=== PATIENT | female | born 1990 | race Caucasian/White ===

== ENCOUNTER 2024-03-01 09:43 | Emergency (ER) | payer BC, SELFPAY ==
[2024-03-01 09:52] VITALS: BP 137/85; PULSE 77; RESP 13; TEMP 36.9; O2SAT 100
[2024-03-01 09:55] VITALS: O2SAT 100
[2024-03-01 11:16] VITALS: BP 139/82; PULSE 78; O2SAT 100
--- NOTE | 2024-03-01 11:18 | ED.DENTAL ---
HPI - Dental/Oral General Chief complaint: Dental/Oral Stated complaint: dental pain Time Seen by Provider: 03/01/24 09:59 Source: patient Mode of arrival: ambulatory Limitations: no limitations History of Present Illness HPI Narrative: This is a 33-year-old female that presents to the emergency department for dentalgia. Ongoing intermittently over the last several months. Reports worsening over the last couple of days. Reports yesterday she started to notice some swelling around the area. Denies fevers or drainage. MD Complaint: tooth pain Location: Tooth # (4) Related Data Allergies Allergy/AdvReac Type Severity Reaction Status Date / Time amoxicillin Allergy Hives Verified 03/01/24 09:45 Review of Systems Review of Systems: CONSTITUTIONAL: Denies fever ENT: Reports dentalgia All systems reviewed & are unremarkable except as noted in HPI and below PMFSH Past Medical History Medical History (Updated 03/01/24 @ 11:38 by Becka Ayala PA-C) No active medical problems Social History Social History (Updated 03/01/24 @ 11:19 by Becka Ayala PA-C) Substance use: never Exam Narrative: GENERAL: Well-appearing, well-nourished, and in no acute distress. HEAD: Normocephalic, atraumatic. EYES: EOMI. ENT: Nares clear, no rhinorrhea or epistaxis. Mucous membranes moist. Oropharynx without tonsillar hypertrophy exudate or other lesions. Edema and fluctuance surrounding tooth 4. No trismus NECK: Supple. No adenopathy or masses. CHEST: No respiratory distress. HEART: Regular rate EXTREMITIES: Normal range of motion. No edema. SKIN: Warm, dry, no rash. NEURO: No focal deficits. Alert and oriented x3. PSYCH: Normal mood and affect Course Course Emergency Course: abscess successfully drained. patient agrees with plan of care Vital Signs Vital signs: Vital Signs Temperature 98.5 F 03/01/24 09:52 Pulse Rate 77 03/01/24 09:52 Respiratory Rate 13 03/01/24 09:52 Blood Pressure 137/85 03/01/24 09:52 Pulse Oximetry 100 03/01/24 09:52 Oxygen Delivery Room Air 03/01/24 09:52 Temperature 98.5 F 03/01/24 09:52 Pulse Rate 87 03/01/24 11:33 Respiratory Rate 18 03/01/24 11:33 Blood Pressure 121/80 03/01/24 11:33 Pulse Oximetry 100 03/01/24 11:33 Oxygen Delivery Room Air 03/01/24 09:52 Procedures Abscess I/D oral: Date of Incision: 03/01/24 Time of Incision: 11:41 Side (if applicable): right Local Anesthetic: none (cetacaine) Technique: incised with #11 blade Packing used?: none I&D Results: Pus and Blood MDM - Dental/Oral MDM Narrative Medical decision making narrative: Patient presents to the emergency department for dental pain and swelling. Patient is afebrile and nontoxic appearing. She did have an abscess that was successfully drained. Wound culture sent. Patient will be started on oral antibiotics. She is to follow up with her dentist. She was given warnings to return to the ER Differential Diagnosis Differential diagnosis: Likely dental caries, toothache and dental abscess Critical Care Time Critical Care Time Critical Care Time: No Discharge Plan Discharge Clinical Impression: Dental abscess Patient Disposition: Home, Self-Care Condition: Stable Instructions: Antibiotic Form, Dental Abscess (ED) Additional Instructions: Return if symptoms worsen or concerns: any increase in redness, swelling, pain or fever over 101 Take antibiotics as directed. Tylenol or Ibuprofen as needed for pain Follow up with your dentist Prescriptions: New clindamycin HCl 300 mg capsule 300 mg PO Q8H 10 Days Qty: 30 0RF Follow-up/Referrals: UNKNOWN,DOCTOR [Primary Care Provider] -
[2024-03-01 11:33] VITALS: BP 121/80; PULSE 87; RESP 18; O2SAT 100
[2024-03-01] MEDS: BENZOCAINE (*SP) 60 ML SPRAY CAN (HURRICAINE) 1 SPRAY MUCOUS MEM (11:43)
== END 2024-03-01 11:49 | disposition home or self-care (01) ==
PROVIDERS: Emergency Provider Physician Assistant
DX: K04.7 Periapical abscess without sinus (principal)
CPT/HCPCS: 41800; 87070; 87205; 99283; A9270

== ENCOUNTER 2025-05-22 07:45 | Emergency (ER) | payer OTHER, BC, SELFPAY ==
--- OUTSIDE RECORDS SUMMARY | 2025-02-26 06:54 | XMS_ITS | Continuity of Care Document ---
Author Organization [facility] Address [address] [place] [address] Phone Care Team Providers Care Secy Name Role Phone Brooke VO, Kerline Unavailable Unavailable Advance Directives Directive Yes / No Effective Date File Name No Information Encounters Encounter Description Practice Location Reason(s) For Visit Diagnoses Date Provider Providers Copied on Encounter [facility], [address], [place], [place], [id number], tel:[phone] [facility] No Information Brooke Churchill. [address] [place] [address], [id number], . tel:[phone] Family History Family Member Type Diagnosis Age At Onset No Information Payers Payer name Insurance type Covered libertarian ID Authoriza tion(s) No Information Social History Type Description Quantity Date Captured Comments Sex Female Smoking Status No Information Chief Complaint And Reason For Visit No Information Reason For Referral Reason For Referral No Information History Of Present Illness Encounter Date Complaint History Of Prese nt Illness No Information Functional Status Date Functional Assessmen t No Information Instructions Date Instruction Additional Infor mation No Information Assessments Type Assessment Date No Information Patient Care Teams Name Effective Dates (start - stop) Status Members No Information
--- OUTSIDE RECORDS SUMMARY | 2025-02-26 06:54 | XMS_ITS | Continuity of Care Document ---
Author Organization [facility] Address [address] [place] [address] Phone Care Team Providers Care Network Development Coordinator Name Role Phone Brooke VO, Kerline Unavailable Unavailable Advance Directives Directive Yes / No Effective Date File Name No Information Encounters Encounter Description Practice Location Reason(s) For Visit Diagnoses Date Provider Providers Copied on Encounter [facility], [address], [place], [place], [id number], tel:[phone] [facility] No Information Brooke Churchill. [address] [place] [address], [id number], . tel:[phone] Family History Family Member Type Diagnosis Age At Onset No Information Payers Payer name Insurance type Covered republican ID Authoriza tion(s) No Information Social History [...]
--- NOTE | ~2025-05-22 | CT_ITS ---
EXAMINATION: CT abdomen pelvis w con DATE: 05/22/2025 08:43 INDICATION: Right upper quadrant abdominal pain. TECHNIQUE: Computed tomography (CT) of the abdomen and pelvis was performed with 100 mL Omnipaque-350 intravenous contrast. Automated exposure control and iterative reconstruction technique were employed. The dose-length product was 706.38 mGy-cm. COMPARISON: None FINDINGS: Lung bases are clear. Heart size is normal. No pericardial or pleural effusion. Small sliding-type hiatal hernia with change of prior sleeve gastrectomy with suture line along the greater curvature of the stomach. Prominent diffuse hepatic steatosis with more focal fat at the ligamentum teres. Gallbladder, spleen, pancreas, bilateral adrenal glands and right kidney are normal. 1 cm left renal cyst. Bowels including the appendix are normal. Bladder is unremarkable. IUD in expected position within the anteverted uterus. 2 cm right ovarian cyst/follicle. Left ovary is unremarkable. No free intraperitoneal gas or fluid. No pathologically enlarged abdominal or pelvic lymphadenopathy. Mild lower thoracic spondylosis. IMPRESSION: 1. No acute intra-abdominal/pelvic process. 2. Diffuse hepatic steatosis. 3. Small sliding-type hiatal hernia. Reviewed, dictated and finalized at location A.
[2025-05-22 07:50] VITALS: BP 132/96; PULSE 107; RESP 16; TEMP 36.8; O2SAT 100
[2025-05-22 08:01] VITALS: BP 131/91; PULSE 84; RESP 17; O2SAT 98
--- OUTSIDE RECORDS SUMMARY | 2025-05-22 08:02 | XMS_ITS | Encounter Summary ---
Author Organization [employer] Address 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
--- OUTSIDE RECORDS SUMMARY | 2025-05-22 08:02 | XMS_ITS | Encounter Summary ---
Author Organization [facility] Address 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
--- OUTSIDE RECORDS SUMMARY | 2025-05-22 08:02 | XMS_ITS | Encounter Summary ---
Author Organization [facility] Address [address] [place] [address] Care Team Providers Care Director Supply Name Role Phone Dennis Clifton DO Primary Care Provider [phone] Encounter Details Date Type Department Care Team (Late st Contact Info) Description 10/31/2008 Outpatient Historical [facility] [address] [facility] 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
--- OUTSIDE RECORDS SUMMARY | 2025-05-22 08:02 | XMS_ITS | Encounter Summary ---
Author Organization [facility] Address 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
--- OUTSIDE RECORDS SUMMARY | 2025-05-22 08:02 | XMS_ITS | Encounter Summary ---
Author Organization [employer] Address 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 No Chlamydia trachomatis detected. [facility] Endocervical 10/31/2008 1:06 PM MASH FILTER PRESS OPERATOR 10/31/2008 2:46 PM MASH FILTER PRESS OPERATOR Narrative INTERFACE SYSTEM - 11/01/2008 3:00 PM MASH FILTER PRESS OPERATOR All identification methods for Chlamydia trachomatis and Neisseria gonorrhoeae can yield false positive results. In circumstances where diagnosis could lead to adverse psychosocial impacts, additional testing is recommended. A negative test result does not exclude infection. Consultation with the lab is recommended whenever the test result is negative and the clinical indications strongly suggest Chlamydial or Gonorrhoeal infection. Culture is the only recommended procedure for diagnosing Chlamydial or Gonorrhoeal infection in cases of suspected child abuse. Jose De Jesus Arriola MD [employer] ORDERABLES COM Final Result INTERFACE SYSTEM Refer to clinic/hospital department [facility] CLIA# [id number] [address] [place] [address] documented in this encounter Visit Diagnoses Diagnosis Screening examination for venereal disease documented in this encounter Care Teams Sewing Inspector Relationship Specialty Start Date End Date Dennis Clifton DO [facility] [place] [address] PCP - General Family Practice 07/28/21 03/26/24 documented as of this encounter
--- OUTSIDE RECORDS SUMMARY | 2025-05-22 08:02 | XMS_ITS | Encounter Summary ---
Author Organization [facility] Address [address] [place] [address] Care Team Providers Care Cook Station Name Role Phone Dennis Clifton DO Primary Care Provider [phone] Encounter Details Date Type Department Care Team (Late st Contact Info) Description 03/28/[address] 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
--- OUTSIDE RECORDS SUMMARY | 2025-05-22 08:02 | XMS_ITS | Encounter Summary ---
Author Organization [facility] Address [address] [place] [address] Care Team Providers Care Health Safety Coordinator Name Role Phone Dennis Clifton DO Primary Care Provider Encounter Details Date Type Department Care Team (Late st Contact Info) Description 03/05/[address] 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
--- OUTSIDE RECORDS SUMMARY | 2025-05-22 08:02 | XMS_ITS | Encounter Summary ---
Author Organization [employer] Address 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 JOURNEYMAN 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 Gender Identity Not on file Sexual Orientation Not on file documented as of this encounter Plan of Treatment Not on file documented as of this encounter Procedures Procedure Name Priority Date/Time Associated Diagnosis Comments US OB LTD 1 OR MORE FETUSES Pending Discharge 11/07/2008 10:46 AM JOURNEYMAN MACHINIST documented in this encounter Results * US OB LTD 1 OR MORE FETUSES (11/07/2008 10:46 AM JOURNEYMAN MACHINIST) Anatomical Region Laterality Modality Pelvis Other Narrative 11/07/2008 10:46 AM JOURNEYMAN MACHINIST FINAL - Order Information Only Procedure Note Jose Graham, RN - 09/30/2015 FINAL - Order Information Only us Stl Other US ORDERABLES Final Result documented in this encounter Visit Diagnoses Diagnosis Other specified complication, antepartum(646.83) Other specified complication, antepartum documented in this encounter Care Teams Reconciliation Coordinator Relationship Specialty Start Date End Date Dennis Clifton DO [facility] [place] [address] PCP - General Family Practice 07/28/21 03/26/24 documented as of this encounter
--- OUTSIDE RECORDS SUMMARY | 2025-05-22 08:02 | XMS_ITS | Encounter Summary ---
Author Organization [employer] [facility] Address [address] [place] [address] Care Team Providers Care Ground Wood Supervisor Name Role Phone Dennis Clifton DO Primary Care Provider [phone] Encounter Details Date Type Department Care Team (Late st Contact Info) Description 10/08/2008 Outpatient Historical HIS [facility] AMRIK Arriola, Jose De Jesus Art MD NO ADDRESS ON FILE State, Incidental Social History Tobacco Use Types Packs/Day Years Used Date Smoking Tobacco: Never Assessed Comments Unknown Sex and Gender Information Value Date Recorded Sex Assigned at Not on file Legal Sex Female 5:41 AM SEWER AND INSPECTOR Gender Identity Not on file Sexual Orientation Not on file documented as of this encounter Plan of Treatment Not on file documented as of this encounter Procedures Procedure Name Priority Date/Time Associated Diagnosis Comments HIV DETECTION W/REFLX CONFIRMATION Routine 10/08/2008 11:40 AM SEWER AND INSPECTOR HEPATITIS B SURFACE ANTIGEN Routine 10/08/2008 11:40 AM SEWER AND INSPECTOR RUBELLA IGG Routine 10/08/2008 11:40 AM SEWER AND INSPECTOR CBC WITH DIFFERENTIAL Routine 10/08/2008 11:40 AM SEWER AND INSPECTOR RPR Routine 10/08/2008 11:40 AM SEWER AND INSPECTOR OBSTETRIC PANEL Routine 10/08/2008 11:40 AM SEWER AND INSPECTOR URINE CULTURE Routine 10/08/2008 11:40 AM SEWER AND INSPECTOR TYPE AND SCREEN, Routine 10/08/2008 11:23 AM SEWER AND INSPECTOR DRUGS OF ABUSE PANEL 7 Routine 10/08/2008 11:23 AM SEWER AND INSPECTOR BLOOD BANK ANTIBODY SCREEN Routine 10/08/2008 11:23 AM SEWER AND INSPECTOR documented in this encounter Results * OBSTETRIC PANEL (10/08/2008 11:40 AM SEWER AND INSPECTOR) COMMENT See Additional Orderables [facility] Blood specimen (specimen) 10/08/2008 11:40 AM SEWER AND INSPECTOR 10/08/2008 11:53 AM SEWER AND INSPECTOR Jose De Jesus Arriola MD CHEMISTRY ORDERABLES Final Result Performing Organization Address [facility] de Phone Number INTERFACE SYSTEM Refer to clinic/hospital department [facility] CLIA# [id number] [address] [place] [address] * HIV ANTIBODY W/REFLX CONFIRMATION (10/08/2008 11:40 AM SEWER AND INSPECTOR) HIV-1 AND 2 ABS NON-REACT RAFITA NON-REACT RAFITA [facility] Comment: A NON-REACTIVE HIV 1/2 ANTIBODY RESULT DOES NOT EXCLUDE HIV INFECTION SINCE THE TIME FRAME FOR SEROCONVERSION IS VARIABLE. IF ACUTE HIV INFECTION IS SUSPECTED, ANTIBODY RETESTING AND NUCLEIC ACID AMPLIFICATION (HIV DNA/RNA) TESTING IS RECOMMENDED. Lab test performed by: [facility] [id number] [place] [address] BRYANT PAEZ MD Effective February 13, 2007, HIV 1/2 Antibody Screen with Reflexed Confirmation has replaced HIV-1 Antibody Screen. HIV-1 Antibody Screen is no longer offered due to lack of available kits from the stockholder. Blood specimen (specimen) 10/08/2008 11:40 AM SEWER AND INSPECTOR 10/08/2008 11:53 AM SEWER AND INSPECTOR Jose De Jesus Arriola MD CHEMISTRY ORDERABLES Final Result Performing Organization Address [facility] de Phone Number INTERFACE SYSTEM Refer to clinic/hospital department [facility] CLIA# [id number] [address] [place], [place] [address] * (ABNORMAL) CBC WITH DIFFERENTIAL (10/08/2008 11:40 AM SEWER AND INSPECTOR) HEMATOCRIT 38.0 35.5 - 44.0 % [facility] RDW-STDEV 42.3 37.1 - 48.7 fL [facility] RBC 4.49 3.90 - 4.90 M/uL [facility] MCHC 34.5 31.5 - 35.5 % [facility] MCV 84.6 82.0 - 99.0 fL [facility] PLATELETS 311 140 - 350 K/uL [facility] HEMOGLOBIN 13.1 11.8 - 14.8 g/dL [facility] RDW 13.8 11.5 - 14.5 % [facility] WBC 10.1(H) 4.0 - 9.8 K/uL [facility] MCH 29.2 27.2 - 32.6 pg [facility] MPV 9.8 9.3 - 12.4 fL [facility] BASOPHILS ABSOLUTE 0.02 0.00 - 0.20 K/uL [facility] MONOCYTES 5 3 - 13 % [facility] MONOCYTE ABSOLUTE 0.49 0.10 - 1.30 K/uL [facility] NEUTROPHILS 74(H) 45 - 70 % [facility] NEUTROPHIL ABSOLUTE 7.47(H) 1.90 - 7.00 K/uL [facility] EOSINOPHILS 1 0 - 7 % [facility] EOSINOPHIL ABSOLUTE 0.05 0.00 - 0.70 K/uL [facility] LYMPHOCYTES 21 16 - 45 % [facility] LYMPHOCYTE ABSOLUTE 2.08 0.70 - 4.50 K/uL [facility] BASOPHILS 0 0 - 2 % [facility] Blood specimen (specimen) 10/08/2008 11:40 AM SEWER AND INSPECTOR 10/08/2008 11:55 AM SEWER AND INSPECTOR Jose De Jesus Arriola MD HEMATOLOGY ORDERABLES Edit ed Performing Organization Address [facility] Phone Number INTERFACE SYSTEM Refer to clinic/hospital department [facility] CLIA# [id number] [address] [place] [address] * HEPATITIS B SURFACE ANTIGEN (10/08/2008 11:40 AM SEWER AND INSPECTOR) HEPATITIS B SURFACE AG NON-REACTI VE NON-REACT RAFITA [facility] Comment: Lab test performed by: [facility] [id number] [place] [address] BRYANT PAEZ MD Blood specimen (specimen) 10/08/2008 11:40 AM SEWER AND INSPECTOR 10/08/2008 11:53 AM SEWER AND INSPECTOR Jose De Jesus Arriola MD CHEMISTRY ORDERABLES Final Result Performing Organization Address [facility] Phone Number INTERFACE SYSTEM Refer to clinic/hospital department [facility] CLIA# [id number] [address] [place] [address] * RUBELLA IGG (10/08/2008 11:40 AM SEWER AND INSPECTOR) RUBELLA IGG 1.18 EIA Value [facility] Comment: EIA VALUE EXPLANATION OF TEST RESULTS --------- <0.91 NEGATIVE - NO RUBELLA IGG ANTIBODY DETECTED. 0.91 - 1.09 EQUIVOCAL > OR = 1.10 POSITIVE - RUBELLA IGG ANTIBODY DETECTED. THE PRESENCE OF RUBELLA IGG ANTIBODY SUGGESTS IMMUNIZATION OR PAST OR CURRENT INFECTION WITH RUBELLA VIRUS. Lab test performed by: [facility] [id number] [employer] [place] [id number] BRYANT PAEZ MD Blood specimen (specimen) 10/08/2008 11:40 AM SEWER AND INSPECTOR 10/08/2008 11:53 AM SEWER AND INSPECTOR Jose De Jesus Arriola MD CHEMISTRY ORDERABLES Final Result Performing Organization Address [facility] Phone Number INTERFACE SYSTEM Refer to clinic/hospital department [facility] CLIA# [id number] [address] [place] [address] * RPR (10/08/2008 11:40 AM SEWER AND INSPECTOR) RPR NON-REACTI VE NON-REACT RAFITA [facility] Comment: Lab test performed by: [facility] [id number] [place] [id number] BRYANT PAEZ MD Blood specimen (specimen) 10/08/2008 11:40 AM SEWER AND INSPECTOR 10/08/2008 11:53 AM SEWER AND INSPECTOR Jose De Jesus Arriola MD CHEMISTRY ORDERABLES Final Result Performing Organization Address [facility] Phone Number INTERFACE SYSTEM Refer to clinic/hospital department [facility] CLIA# [id number] [address] [place] [address] * URINE CULTURE (10/08/2008 11:40 AM SEWER AND INSPECTOR) PRELIMINARY REPORT Pending [facility] FINAL REPORT No growth 24 hours [facility] 10/08/2008 11:4 0 AM SEWER AND INSPECTOR 10/08/2008 12:55 PM SEWER AND INSPECTOR us Jose De Jesus Arriola MD MICROBIOLOGY - GENERAL ORD ERABLES Final Result Performing Organization Address [facility] de Phone Number INTERFACE SYSTEM Refer to clinic/hospital department [facility] CLIA# [id number] [address] [place] [address] * ANTIBODY SCREEN (10/08/2008 11:23 AM SEWER AND INSPECTOR) ANTIBODY SCREEN Negative [facility] 10/08/2008 11:2 3 AM SEWER AND INSPECTOR Jose De Jesus Arriola MD BLOOD BANK ORDERABLES Cami l Result Performing Organization Address [facility] de Phone Number INTERFACE SYSTEM Refer to clinic/hospital department [facility] CLIA# [id number] [address] [place] [address] * TYPE AND SCREEN, (10/08/2008 11:23 AM SEWER AND INSPECTOR) HISTORY CHECK No Historical ABO/Rh [facility] ABO/RH TYPE A Positive [facility] Blood specimen (specimen) 10/08/2008 11:23 AM SEWER AND INSPECTOR Jose De Jesus Arriola MD BLOOD BANK ORDERABLES Edit ed Performing Organization Address [facility] Phone Number INTERFACE SYSTEM Refer to clinic/hospital department [facility] CLIA# [id number] [address] [place] [address] * DRUGS OF ABUSE PANEL 7 (10/08/2008 11:23 AM SEWER AND INSPECTOR) COMMENT, TOXICOLOGY See Separate Comment [facility] Comment: Urine sample was not handled as a legal specimen and was received without a chain of custody. The result should be used only for medical purposes. False positive and erroneous results can occur due to cross-reacting substances and other factors. Depending on the clinical context, confirmation of all presumptive positive results by a more specific alternate method is recommended. A negative result indicates the analyte, if present, is below the screening threshold. Drug Ref. Range Screening Threshold Amphetamines Negative 1000 ng/mL Barbiturates Negative 200 ng/mL Benzodiazepines Negative 300 ng/mL Cannabinoids Negative 50 ng/mL Cocaine Metabolites Negative 300 ng/mL Opiates Negative 300 ng/mL Phencyclidine Negative 25 ng/mL The cut-off threshold, known cross-reactive compounds, drugs,and specificity information for each of the urine drugs of abuse are available on the [facility] Intranet at: [email or web address] Select: Lab Policies & Procedures Select: Drugs of Abuse-[facility] To inquire about any potential cross-reactivity of a specific drug not listed at this site, please contact the Chemistry Lab at . AMPHETAMINE QUAL, URINE Negative Negative [facility] BARBITURATE QUAL, URINE Negative Negative [facility] BENZODIAZEPINE QUAL, URINE Negative Negative [facility] CANNABINOIDS QUAL, URINE Negative Negative [facility] COCAINE QUAL URINE Negative Negative [facility] OPIATE QUAL, URINE Negative Negative [facility] PCP QUAL, URINE Negative Negative [facility] Urine specimen (specimen) 10/08/2008 11:23 AM SEWER AND INSPECTOR 10/08/2008 11:52 AM SEWER AND INSPECTOR us Jose De Jesus Arriola MD URINE ORDERABLES Edited INTERFACE SYSTEM Refer to clinic/hospital department [facility] CLIA# [id number] [address] [place] [address] documented in this encounter Visit Diagnoses Diagnosis state, incidental documented in this encounter Care Teams Ground Wood Supervisor Relationship Specialty Start Date End Date Dennis Clifton DO [address] [facility] [place] [address] PCP - General Family Practice 07/28/21 03/26/24 documented as of this encounter
--- OUTSIDE RECORDS SUMMARY | 2025-05-22 08:02 | XMS_ITS | Encounter Summary ---
Author Organization [employer] Address [address] [place] [address] Care Team Providers Care Behavioral Services Tech Name Role Phone Etienne Dennis Primary Care Provider [phone] Encounter Details Date Type Department Care Team (Late st Contact Info) Description 03/27/2009 Outpatient Historical [facility] Jose De Jesus Arriola MD NO ADDRESS ON FILE State, Incidental Social History Tobacco Use Types Packs/Day Years Used Date Smoking Tobacco: Never Assessed Comments Unknown Sex and Gender Information Value Date Recorded Sex Assigned at Not on file Legal Sex Female 5:41 AM WEIGH TANK OPERATOR Gender Identity Not on file Sexual Orientation Not on file documented as of this encounter Plan of Treatment Not on file documented as of this encounter Procedures Procedure Name Priority Date/Time Associated Diagnosis Comments (BROTH-ENRICHED) GROUP B STREP DETECTION Routine 03/27/2009 4:16 PM CDT documented in this encounter Results * STREPTOCOCCUS GROUP B CULTURE (03/27/2009 4:16 PM CDT) PRELIMINARY REPORT Pending [facility] FINAL REPORT No Streptococcus Group B isolated. [facility] 03/27/2009 4:16 PM CDT 03/27/2009 6:55 PM CDT us Jose De Jesus Arriola MD MICROBIOLOGY - GENERAL ORD ERABLES Final Result INTERFACE SYSTEM Refer to clinic/hospital department [facility] CLIA# [id number] [address] [place] [address] documented in this encounter Visit Diagnoses Diagnosis state, incidental documented in this encounter Care Teams Behavioral Services Tech Relationship Specialty Start Date End Date Dennis Clifton DO [facility] [place] [address] PCP - General Family Practice 07/28/21 03/26/24 documented as of this encounter
--- OUTSIDE RECORDS SUMMARY | 2025-05-22 08:02 | XMS_ITS | Encounter Summary ---
Author Organization [facility] Address [address] [place] [address] Care Team Providers Care Environmental Education Specialist Name Role Phone Dennis Clifton DO Primary Care Provider [phone] Encounter Details Date Type Department Care Team (Late st Contact Info) Description 03/11/2009 Outpatient [facility] [address] [facility] [place] [address] Binta Alves DO [address] [place] [address] Social History Tobacco Use Types Packs/Day Years Used Date Smoking Tobacco: Never Assessed Comments Unknown Sex and Gender Information Value Date Recorded Sex Assigned at Not on file Legal Sex Female 5:41 AM LEASES AND LAND SUPERVISOR Gender Identity Not on file Sexual Orientation Not on file documented as of this encounter Plan of Treatment Not on file documented as of this encounter Visit Diagnoses Not on filedocumented in this encounter Care Teams Environmental Education Specialist Relationship Specialty Start Date End Date Dennis Clifton DO [address] [place] [address] PCP - General Family Practice 07/28/21 03/26/24 documented as of this encounter
--- OUTSIDE RECORDS SUMMARY | 2025-05-22 08:02 | XMS_ITS | Encounter Summary ---
Author Organization [facility] Address [address] [place] [address] Care Team Providers Care Automotive Tire Worker Name Role Phone Dennis Clifton DO Primary Care Provider [phone] Encounter Details Date Type Department Care Team (Late st Contact Info) Description 04/11/2009 Outpatient Historical [facility] [address] [place] [address] Social History Tobacco Use Types Packs/Day Years Used Date Smoking Tobacco: Never Assessed Comments Unknown Sex and Gender Information Value Date Recorded Sex Assigned at Not on file Legal Sex Female 5:41 AM ELECTRONIC INTELLIGENCE OFFICER Gender Identity Not on file Sexual Orientation Not on file documented as of this encounter Plan of Treatment Not on file documented as of this encounter Visit Diagnoses Not on filedocumented in this encounter Care Teams Automotive Tire Worker Relationship Specialty Start Date End Date Dennis Clifton DO [address] [place] [phone] PCP - General Family Practice 07/28/21 03/26/24 documented as of this encounter
--- OUTSIDE RECORDS SUMMARY | 2025-05-22 08:02 | XMS_ITS | Encounter Summary ---
Author Organization [facility] Address [address] [place] [address] Care Team Providers Care Travel Agency Manager Name Role Phone Dennis Clifton DO Primary Care Provider [phone] Encounter Details Date Type Department Care Team (Late st Contact Info) Description 04/10/2009 Outpatient Historical [facility] [address] [place] [address] Jose De Jesus Arriola MD NO ADDRESS ON FILE Social History Tobacco Use Types Packs/Day Years Used Date Smoking Tobacco: Never Assessed Comments Unknown Sex and Gender Information Value Date Recorded Sex Assigned at Not on file Legal Sex Female 5:41 AM CHANNEL REBUILDER Gender Identity Not on file Sexual Orientation Not on file documented as of this encounter Plan of Treatment Not on file documented as of this encounter Visit Diagnoses Not on filedocumented in this encounter Care Teams Travel Agency Manager Relationship Specialty Start Date End Date Dennis Clifton DO [facility] [place] [address] PCP - General Family Practice 07/28/21 03/26/24 documented as of this encounter
--- OUTSIDE RECORDS SUMMARY | 2025-05-22 08:02 | XMS_ITS | Encounter Summary ---
Author Organization [employer] Address [address] [place] [address] Care Team Providers Care Caustic Cresylate Shift Superintendent Name Role Phone Dennis Clifton DO Primary Care Provider [phone] Encounter Details Date Type Department Care Team (Late st Contact Info) Description 01/23/2009 Outpatient Historical [facility] Jose De Jesus Arriola MD NO ADDRESS ON FILE Supervision of Other Normal Social History Tobacco Use Types Packs/Day Years Used Date Smoking Tobacco: Never Assessed Comments Unknown Sex and Gender Information Value Date Recorded Sex Assigned at Not on file Legal Sex Female 5:41 AM INSULATION CUTTER Gender Identity Not on file Sexual Orientation Not on file documented as of this encounter Plan of Treatment Not on file documented as of this encounter Visit Diagnoses Diagnosis Supervision of other normal documented in this encounter Care Teams Caustic Cresylate Shift Superintendent Relationship Specialty Start Date End Date Dennis Clifton DO [facility] [place] [address] PCP - General Family Practice 07/28/21 03/26/24 documented as of this encounter
--- OUTSIDE RECORDS SUMMARY | 2025-05-22 08:02 | XMS_ITS | Encounter Summary ---
Author Organization [facility] Address [address] [place] [address] Care Team Providers Care Vegetables Cook Name Role Phone Dennis Clifton DO Primary Care Provider [phone] Encounter Details Date Type Department Care Team (Late st Contact Info) Description 10/08/2008 [facility] [address] [place] [address] Oneal Cintron MD [id number] [place] [address] Social History Tobacco Use Types Packs/Day Years Used Date Smoking Tobacco: Never Assessed Comments Unknown Sex and Gender Information Value Date Recorded Sex Assigned at Not on file Legal Sex Female 5:41 AM CEMENT TILE MAKER Gender Identity Not on file Sexual Orientation Not on file documented as of this encounter Plan of Treatment Not on file documented as of this encounter Visit Diagnoses Not on filedocumented in this encounter Care Teams Vegetables Cook Relationship Specialty Start Date End Date Dennis Clifton DO [address] [place] [phone] PCP - General Family Practice 07/28/21 03/26/24 documented as of this encounter
--- OUTSIDE RECORDS SUMMARY | 2025-05-22 08:02 | XMS_ITS | Encounter Summary ---
Author Organization [employer] Address [address] [place] [address] Care Team Providers Care Electric Range Servicer Name Role Phone Dennis Clifton DO Primary Care Provider [phone] Encounter Details Date Type Department Care Team (Late st Contact Info) Description 03/30/2009 Inpatient Historical [facility] Andrés Gannon MD [address] [facility] [address] [place] [address] Normal Delivery Social History Tobacco Use Types Packs/Day Years Used Date Smoking Tobacco: Never Assessed Comments Unknown Sex and Gender Information Value Date Recorded Sex Assigned at Not on file Legal Sex Female 5:41 AM CHIPPER Gender Identity Not on file Sexual Orientation Not on file documented as of this encounter Plan of Treatment Not on file documented as of this encounter Visit Diagnoses Diagnosis Normal delivery documented in this encounter Care Teams Electric Range Servicer Relationship Specialty Start Date End Date Dennis Clifton DO [address] [place] [phone] PCP - General Family Practice 07/28/21 03/26/24 documented as of this encounter
--- OUTSIDE RECORDS SUMMARY | 2025-05-22 08:02 | XMS_ITS | Encounter Summary ---
Author Organization [facility] Address [address] [place] [address] Care Team Providers Care Cement Conveyor Operator Name Role Phone Dennis Clifton DO Primary Care Provider [phone] Encounter Details Date Type Department Care Team (Late st Contact Info) Description 10/08/2008 Outpatient Historical [facility] [address] [place] [address] Ilda Fenton DO [address] [place], [place] [id number] Social History Tobacco Use Types Packs/Day Years Used Date Smoking Tobacco: Never Assessed Comments Unknown Sex and Gender Information Value Date Recorded Sex Assigned at Not on file Legal Sex Female 5:41 AM STEEL POURER HELPER Gender Identity Not on file Sexual Orientation Not on file documented as of this encounter Plan of Treatment Not on file documented as of this encounter Visit Diagnoses Not on filedocumented in this encounter Care Teams Cement Conveyor Operator Relationship Specialty Start Date End Date Dennis Clifton DO [facility] [place] [address] PCP - General Family Practice 07/28/21 03/26/24 documented as of this encounter
--- OUTSIDE RECORDS SUMMARY | 2025-05-22 08:02 | XMS_ITS | Encounter Summary ---
Author Organization [employer] Address [address] [place] [address] Care Team Providers Care Police Crime Scene Technician Name Role Phone Dennis Clifton DO Primary Care Provider [phone] Encounter Details Date Type Department Care Team (Late st Contact Info) Description 04/10/2009 Outpatient Historical [facility] Jose De Jesus Arriola MD NO ADDRESS ON FILE State, Incidental Social History Tobacco Use Types Packs/Day Years Used Date Smoking Tobacco: Never Assessed Comments Unknown Sex and Gender Information Value Date Recorded Sex Assigned at Not on file Legal Sex Female 5:41 AM RESIDENTIAL CASE MANAGER Gender Identity Not on file Sexual Orientation Not on file documented as of this encounter Plan of Treatment Not on file documented as of this encounter Visit Diagnoses Diagnosis state, incidental documented in this encounter Care Teams Police Crime Scene Technician Relationship Specialty Start Date End Date Dennis Clifton DO [facility] [place] [address] PCP - General Family Practice 07/28/21 03/26/24 documented as of this encounter
--- OUTSIDE RECORDS SUMMARY | 2025-05-22 08:02 | XMS_ITS | Encounter Summary ---
Author Organization [employer] Address [address] [place] [address] Care Team Providers Care Diesel Machinist Name Role Phone Dennis Clifton DO Primary Care Provider [phone] Encounter Details Date Type Department Care Team (Late st Contact Info) Description 03/17/2009 Outpatient Historical [facility] Cholo Escobar MD [address] [place] [address] [place] [phone] State, Incidental Social History Tobacco Use Types Packs/Day Years Used Date Smoking Tobacco: Never Assessed Comments Unknown Sex and Gender Information Value Date Recorded Sex Assigned at Not on file Legal Sex Female 5:[address] DRIVER Gender Identity Not on file Sexual Orientation Not on file documented as of this encounter Plan of Treatment Not on file documented as of this encounter Visit Diagnoses Diagnosis state, incidental documented in this encounter Care Teams Diesel Machinist Relationship Specialty Start Date End Date Dennis Clifton DO [address] [place] [phone] PCP - General Family Practice 07/28/21 03/26/24 documented as of this encounter
--- OUTSIDE RECORDS SUMMARY | 2025-05-22 08:02 | XMS_ITS | Encounter Summary ---
Author Organization [facility] Address [address] [place] [address] Care Team Providers Care Bobbin Winder Name Role Phone Dennis Clifton DO Primary Care Provider [phone] Encounter Details Date Type Department Care Team (Late st Contact Info) Description 03/17/2009 Outpatient Historical [facility] [address] [place] [phone] Adilene Marquez MD NO ADDRESS ON FILE Social History Tobacco Use Types Packs/Day Years Used Date Smoking Tobacco: Never Assessed Comments Unknown Sex and Gender Information Value Date Recorded Sex Assigned at Not on file Legal Sex Female 5:41 AM DRY WALL FINISHER Gender Identity Not on file Sexual Orientation Not on file documented as of this encounter Plan of Treatment Not on file documented as of this encounter Visit Diagnoses Not on filedocumented in this encounter Care Teams Bobbin Winder Relationship Specialty Start Date End Date Dennsi Clifton DO [facility] [place] [address] PCP - General Family Practice 07/28/21 03/26/24 documented as of this encounter
--- OUTSIDE RECORDS SUMMARY | 2025-05-22 08:02 | XMS_ITS | Encounter Summary ---
Author Organization [employer] Address [address] [place] [address] Care Team Providers Care Nailhead Operator Name Role Phone Dennis Clifton DO Primary Care Provider [phone] Encounter Details Date Type Department Care Team (Late st Contact Info) Description 04/03/2009 Outpatient Historical [facility] Jose De Jesus Arriola MD NO ADDRESS ON FILE State, Incidental Social History Tobacco Use Types Packs/Day Years Used Date Smoking Tobacco: Never Assessed Comments Unknown Sex and Gender Information Value Date Recorded Sex Assigned at Not on file Legal Sex Female 5:41 AM UTILITY BAG ASSEMBLER Gender Identity Not on file Sexual Orientation Not on file documented as of this encounter Plan of Treatment Not on file documented as of this encounter Visit Diagnoses Diagnosis state, incidental documented in this encounter Care Teams Nailhead Operator Relationship Specialty Start Date End Date Dennis Clifton DO [facility] [place] [address] PCP - General Family Practice 07/28/21 03/26/24 documented as of this encounter
--- OUTSIDE RECORDS SUMMARY | 2025-05-22 08:02 | XMS_ITS | Encounter Summary ---
Author Organization [facility] Address [address] [place] [address] Care Team Providers Care Clinical Research Technician Name Role Phone Dennis Clifton DO Primary Care Provider [phone] Encounter Details Date Type Department Care Team (Late st Contact Info) Description 02/20/2009 Outpatient Historical [facility] [address] [place] [address] Jose De Jesus Arriola MD NO ADDRESS ON FILE Social History Tobacco Use Types Packs/Day Years Used Date Smoking Tobacco: Never Assessed Comments Unknown Sex and Gender Information Value Date Recorded Sex Assigned at Not on file Legal Sex Female 5:41 AM AZURE ARCHITECT Gender Identity Not on file Sexual Orientation Not on file documented as of this encounter Plan of Treatment Not on file documented as of this encounter Visit Diagnoses Not on filedocumented in this encounter Care Teams Clinical Research Technician Relationship Specialty Start Date End Date Dennis Clifton DO [facility] [place] [address] PCP - General Family Practice 07/28/21 03/26/24 documented as of this encounter
--- OUTSIDE RECORDS SUMMARY | 2025-05-22 08:02 | XMS_ITS | Encounter Summary ---
Author Organization [facility] Address [address] [place] [address] Care Team Providers Care Inter Com Installer Name Role Phone Dennis Cilfton DO Primary Care Provider [phone] Encounter Details Date Type Department Care Team (Late st Contact Info) Description 04/11/2009 Outpatient Historical [facility] [address] [place] [address] Social History Tobacco Use Types Packs/Day Years Used Date Smoking Tobacco: Never Assessed Comments Unknown Sex and Gender Information Value Date Recorded Sex Assigned at Not on file Legal Sex Female 5:41 AM POULTRY INSEMINATOR Gender Identity Not on file Sexual Orientation Not on file documented as of this encounter Plan of Treatment Not on file documented as of this encounter Visit Diagnoses Not on filedocumented in this encounter Care Teams Inter Com Installer Relationship Specialty Start Date End Date Dennis Clifton DO [address] [place] [phone] PCP - General Family Practice 07/28/21 03/26/24 documented as of this encounter
--- OUTSIDE RECORDS SUMMARY | 2025-05-22 08:02 | XMS_ITS | Encounter Summary ---
Author Organization [facility] Address [address] [place] [address] Care Team Providers Care Slag Dumper Name Role Phone Clifton, Dennis Primary Care Provider [phone] Encounter Details Date Type Department Care Team (Late st Contact Info) Description 10/31/2008 Outpatient Historical [facility] Jose De Jesus Arriola MD NO ADDRESS ON FILE State, Incidental Social History Tobacco Use Types Packs/Day Years Used Date Smoking Tobacco: Never Assessed Comments Unknown Sex and Gender Information Value Date Recorded Sex Assigned at Not on file Legal Sex Female 5:41 AM ELECTRONIC SECURITY SPECIALIST Gender Identity Not on file Sexual Orientation Not on file documented as of this encounter Plan of Treatment Not on file documented as of this encounter Procedures Procedure Name Priority Date/Time Associated Diagnosis Comments CERV/VAG CYTOPATH, THIN PREP IMAGR RFLX HPV Routine 10/31/2008 4:22 PM ELECTRONIC SECURITY SPECIALIST documented in this encounter Results * (ABNORMAL) CERV/VAG CYTOPATH, THIN PREP STORAGE MANAGEMENT CONSULTANT W/RFLX (10/31/2008 4:22 PM ELECTRONIC SECURITY SPECIALIST) LAST MENSTRUAL PERIOD 07/13/08 [facility] GENERAL CATEGORIZATION : EPITHELIAL CELL ABNORMALITY(A) [facility] CYTOTECHNOLOGI ST: TMK, CT(ASCP) [facility] REPORT STATUS FINAL [facility] SOURCE Information not provided [facility] PREV PAP: Information not provided [facility] PATHOLOGIST Andrés Laws M.D., Board Certified in Anatomic Pathology and Cytopathology. (electronic signature) [facility] Comment: Lab test performed by: [facility] [address] [address] BRYANT PAEZ MD PAP INTERP Low Grade Squamous Intraepithelial Lesion (LSIL)(A) [facility] CLINICAL INFORMATION [facility] Resident Care Manager Pap Comment This Pap test has been evaluated with computer assisted technology. Based on the cytology result, reflex High Risk HPV DNA testing was not performed. Suggest clinical correlation and follow-up as clinically appropriate [facility] ADEQUACY: Satisfactory for evaluation. Endocervical/trans formation zone component present. [facility] PREV BX: Information not provided [facility] Specimen from uterine cervix (specimen) 10/31/2008 4:22 PM ELECTRONIC SECURITY SPECIALIST 10/31/2008 4:42 PM ELECTRONIC SECURITY SPECIALIST us Jose De Jesus Arriola MD PATHOLOGY/CYTOLOGY ORDERAB LES Final Result INTERFACE SYSTEM Refer to clinic/hospital department [facility] CLIA# [id number] [address] [facility] [address] documented in this encounter Visit Diagnoses Diagnosis state, incidental documented in this encounter Care Teams Slag Dumper Relationship Specialty Start Date End Date Dennis Clifton DO [address] [place] [phone] PCP - General Family Practice 07/28/21 03/26/24 documented as of this encounter
--- OUTSIDE RECORDS SUMMARY | 2025-05-22 08:02 | XMS_ITS | Encounter Summary ---
Author Organization [employer] Address [address] [place] [address] Care Team Providers Care Forestry Workers Name Role Phone Dennis Clifton DO Primary Care Provider [phone] Encounter Details Date Type Department Care Team (Late st Contact Info) Description 02/20/2009 Outpatient Historical [facility] Jose De Jesus Arriola MD NO ADDRESS ON FILE Supervision of Other Normal Social History Tobacco Use Types Packs/Day Years Used Date Smoking Tobacco: Never Assessed Comments Unknown Sex and Gender Information Value Date Recorded Sex Assigned at Not on file Legal Sex Female 5:41 AM BUILDING CONSTRUCTION INSPECTOR Gender Identity Not on file Sexual Orientation Not on file documented as of this encounter Plan of Treatment Not on file documented as of this encounter Visit Diagnoses Diagnosis Supervision of other normal documented in this encounter Care Teams Forestry Workers Relationship Specialty Start Date End Date Dennis Clifton DO [facility] [place] [address] PCP - General Family Practice 07/28/21 03/26/24 documented as of this encounter
--- OUTSIDE RECORDS SUMMARY | 2025-05-22 08:02 | XMS_ITS | Clinical Summary ---
Author Organization [facility] Address [address] [facility] [place] [address] Care Team Providers Care Cq Developer Name Role Phone Martin Hurtado MD Primary Care Provider Unavailable Source Comments [facility],non-owned Affiliates and Associated Physician Practices is amultiple site organization consisting of ambulatory clinics and hospital sitesin [place], [place], [place] and [place]. This disclosure is being madepursuant to the Care Everywhere program and may not contain all information available regarding this patient. Last updated 18.[facility] Allergies Active Allergy Reactions Criticality Noted Date Comments Amoxicillin Rash Low 02/19/2014 Clavulanic Acid Rash Medium 08/28/2020 Azithromycin Rash Low 02/19/2014 Medications * This document contains information received from the source organization and may not represent a complete record from that organization. * Be aware that medications may not be up to date on this document. Alwaysverify current medications with the patient. lamoTRIgine (LAMICTAL) 200 MG tabletIndicatio ns:Mood Disorder Take 1 tablet by mouth once daily Reasons: Mood Disorder 30 tablet 1 9 Active ARIPiprazole (ABILIFY) 15 MG tabletIndicatio ns:Mood Disorder Take 1 tablet by mouth once daily Reasons: Mood Disorder 30 tablet 1 9 Active Additional Information Patient not taking.Reported on 03/31/2020 naltrexone (VIVITROL) injectionIndica tions:Alcoholis m Inject 380 mg into muscle every 30 days Next dose due on 06/14/2019 Reasons: Excessive Use of Alcohol 1 syringe 1 9 Active Additional Information Patient not taking.Reported on 03/31/2020 VENTOLIN HFA 108 (90 Base) MCG/ACT inhaler 0 Active SAPHRIS 10 MG tablet 9 Active VRAYLAR 1.5 MG capsule 0 Active dextroamphetami ne (DEXEDRINE) 10 MG tablet 0 Active diclofenac sodium (VOLTAREN) 1 % gel 0 Active FLUoxetine (PROZAC) 20 MG capsule 20 mg 6 Active metFORMIN (GLUCOPHAGE) 500 MG tablet TAKE ONE TABLET BY MOUTH TWICE A DAY WITH MEALS 0 Active methylphenidate CR (CONCERTA) 27 MG tablet 9 Active traZODone (DESYREL) 50 MG tablet Take 1 (one) tablet by mouth as needed for Insomnia 7 Active tamoxifen (NOLVADEX) 10 MG tabletIndicatio ns:Increased risk of breast cancer Take 0.5 tablets by mouth once daily 45 tablet 3 0 Active Additional Information Patient not taking.Reported on 05/22/2021 levonorgestrel (MIRENA) 20 MCG/24HR IUD 1 (one) device by Intrauterine route Active brexpiprazole (Rexulti) 1 MG tablet Take 1 (one) tablet by mouth once daily 3 Active clindamycin (Cleocin) 150 MG capsule 3 Active clotrimazole-be tamethasone (Lotrisone) 1-0.05 % cream 3 Active Active Problems Problem Noted Date Diagnosed Date Increased risk of breast cancer 05/06/2020 Overview (05/06/2020): [employer] Custom Next + RNA insight negative, VUS: MLH1 (2020, Annita) Malpositioned intrauterine device 04/07/2020 Overview (04/07/2020): During recent WWE, IUD strings not visualized Patient presents for U/S to assess IUD location Assessment & Plan (04/07/2020 9:42 PM CDT): Reviewed U/s results IUD correctly positioned Well woman exam with routine gynecological exam 04/01/2020 Overview (05/22/2021): Complaints: none Contraception: Mirena (placed 2017) Pap Results 2020: NILM Mammogram Results No recent mammo Assessment & Plan (05/22/2021 10:03 AM CDT): Reviewed cervical cancer pathophysiology as well as screening and prevention guidelines Pap collected IUD strings visualized Assessment & Plan (04/01/2020 12:46 AM CDT): Reviewed cervical cancer pathophysiology as well as screening and prevention guidelines Pap collected IUD strings not visualized, pt to return for U/S to locate IUD Referral placed for Dr. Ariza for family hx of breast cancer Alcohol use disorder, severe, dependence 019 Bipolar I disorder with depression 05/14/2019 Routine general medical exam ination at a health care facility 02/22/2014 FHx: breast cancer 02/22/2014 Immunizations Immunization Administration Dates Next Due MMR 05/08/2015 TDAP (7yrs+) 02/10/2011,05/14/2009 Family History Medical History Relation Name Comments Cancer - Breast Maternal Grandmother Cancer Mother cervical Cancer - Breast Mother Cancer - Breast half-sister 1 Maternal Cancer - Ovarian Neg Hx Cancer - Uterine Neg Hx Relation Name Status Comments Brother Alive Father Alive Maternal Grandfather Maternal Grandmother Mother Alive Paternal Grandfather Paternal Grandmother half-sister 1 Maternal Alive half-sister 2 Alive half-sister 3 Alive Social History Tobacco Use Types Packs/Day Years Used Date Smoking Tobacco: Former Smokeless Tobacco: Never Tobacco Cessation:Counseling Given: Not Answered Alcohol Use Standard Drinks/Week Comments Not Currently 6 (1 standard drink = 0.6 oz pur e alcohol) AUDIT-C Answer Date Recorded Frequency of Alcohol Consumption 4 or more times a week 05/14/2019 Average Number of Drinks 5 or 6 019 Frequency of Binge Drinking Not on file 10/2018 PHQ-2 Answer Date Recorded PHQ2 TOTAL SCORE 0 11/19/2022 Comments No Sex and Gender Information Value Date Recorded Sex Assigned at Not on file Legal Sex Female 4:25 PM CDT Gender Identity Not on file Sexual Orientation Not on file Occupation Industry Job Start Date Job End Date Not on file Not on file Not on file Not on file Last Filed Vital Signs Vital Sign Reading Time Taken Comments Blood Pressure 120/80 11/25/2022 2:13 PM CDT Pulse 70 11/25/2022 2:13 PM CDT Temperature 36.3 C (97.3 F) 05/17/2019 12:18 PM CDT Respiratory Rate 13 05/22/2021 9:15 AM CDT Oxygen Saturation 98% 05/22/2021 9:15 AM CDT Inhaled Oxygen Concentration - - Weight 84.4 kg (186 lb) 11/25/2022 2:13 PM CDT Height 157.5 cm (5' 2) 05/22/2021 9:15 AM CDT Body Mass Index 34.02 05/22/2021 9:15 AM CDT Plan of Treatment Health Maintenance Due Date Last Done Comments HIV SCREENING 2004 HEPATITIS C SCREENING 09/12/2007 HEPATITIS B VACCINE (1 of 3 - 19+ 3-dose series) 2008 HPV VACCINE (1 - 3-dose SCDM series) 2016 DTAP/TDAP/TD VACCINES (3 - Td or Tdap) 02/10/2021 02/10/2011, 05/14/2009 PAP SMEAR 05/22/2022 05/22/2021, 07/, 01/17/2017, Additional history exists COVID-19 VACCINE ( season) 2025 INFLUENZA VACCINE (#1) 2025 ZOSTER VACCINE (1 of 2) 2039 HIB VACCINE Aged Out No longer eligi ble based on patient's age to complete this topic MENINGOCOCCAL (Group B) VACCINE SHARED DECISION-MAKING Aged Out No longer eligible based on patient's age to complete this topic MENINGOCOCCAL GROUPS A/C/Y/W VACCINE Aged Out No longer eligible based on patient's age to complete this topic PNEUMOCOCCAL VACCINE Aged Out No long er eligible based on patient's age to complete this topic Procedures Procedure Name Priority Date/Time Associated Diagnosis Comments PAP IG LB RFLX HPV APTIMA ASCU Routine 05/22/2021 11:44 AM CDT Well woman exam with routine gynecological exam from Last 3 Months or Most Recently Relevant to Health Maintenance Results * PAP IG LB RFLX HPV APTIMA ASCU (05/22/2021 11:44 AM CDT) Diagnosis [facility] INSURANCE BILL Comment:NEGATIVE FOR INTRAEP ITHELIAL LESION OR MALIGNANCY. Specimen Adequacy [facility] INSURANCE BILL Comment: Satisfactory for evaluation. Endocervical and/or squamous metaplastic cells (endocervical component) are present. Clinician Provided ICD10 [facility] INSURANCE BILL Comment:Z01.419 Performed by [facility] INSURANCE BILL Comment:Diaz Choudhury totechnologist Comment . [facility] INSURANCE BILL Note [facility] INSURANCE BILL Comment: The Pap smear is a screening test designed to aid in the detection of premalignant and malignant conditions of the uterine cervix. It is not a diagnostic procedure and should not be used as the sole means of detecting cervical cancer. Both false-positive and false-negative reports do occur. . [facility]BP CPT Code Automation [facility] INSURANCE BILL Comment: This liquid based ThinPrep(R) pap test was screened with the use of an image guided system. Note [facility] INSURANCE BILL Comment: The HPV DNA reflex criteria were not met with this specimen result therefore, no HPV testing was performed. . Pathology/Cytolog y PART OF UTERINE CERVIX / Unknown 05/22/2021 11:44 AM CDT 05/25/2021 Narrative [facility] INSURANCE BILL - 05/26/2021 10:10 AM CDT No. of containers..01 ThinPrep Vial Resulting Agency Comment Lab Testing performed at: [address] [id number] Corey Alanis MD LAB - PATHOLOGY/CYTOLOGY ORDERA BLES Final Result [facility] INSURANCE BILL [address] [place] [address] from Last 3 Months or Most Recently Relevant to Health Maintenance Insurance AETNA AETNA Advance Directives Documents on File Type Date Recorded Patient Stock Tracer Expl anation Adv Directive/Living Will/POA 02/19/2014 9:44 AM COVENTRY ONE * Full Code (Latest Code Status on File) Date Activated Date Inactivated Comments 05/14/2019 5:12 PM 05/17/2019 3:48 PM Care Teams Cq Developer Relationship Specialty Start Date End Date Martin Hurtado MD PCP - General Family Medicine 01/30/18
--- OUTSIDE RECORDS SUMMARY | 2025-05-22 08:02 | XMS_ITS | Encounter Summary ---
Author Organization [facility] Address [address] [place] [address] Care Team Providers Care Dye Line Operator Name Role Phone Dennis Clifton DO Primary Care Provider [phone] Encounter Details Date Type Department Care Team (Late st Contact Info) Description 04/03/2009 Outpatient Historical [facility] [address] [place] [address] Jose De Jesus Arriola MD NO ADDRESS ON FILE Social History Tobacco Use Types Packs/Day Years Used Date Smoking Tobacco: Never Assessed Comments Unknown Sex and Gender Information Value Date Recorded Sex Assigned at Not on file Legal Sex Female 5:41 AM RANCH MANAGER Gender Identity Not on file Sexual Orientation Not on file documented as of this encounter Plan of Treatment Not on file documented as of this encounter Visit Diagnoses Not on filedocumented in this encounter Care Teams Dye Line Operator Relationship Specialty Start Date End Date Dennis Clifton DO [address] [place] [phone] PCP - General Family Practice 07/28/21 03/26/24 documented as of this encounter
--- OUTSIDE RECORDS SUMMARY | 2025-05-22 08:02 | XMS_ITS | Encounter Summary ---
Author Organization [employer] Address [address] [place] [address] Care Team Providers Care Facility Service Manager Name Role Phone Dennis Clifton DO Primary Care Provider [phone] Encounter Details Date Type Department Care Team (Late st Contact Info) Description 03/27/2009 Outpatient Historical [facility] Jose De Jesus Arriola MD NO ADDRESS ON FILE State, Incidental Social History Tobacco Use Types Packs/Day Years Used Date Smoking Tobacco: Never Assessed Comments Unknown Sex and Gender Information Value Date Recorded Sex Assigned at Not on file Legal Sex Female 5:41 AM REGULATORY AFFAIRS COORDINATOR Gender Identity Not on file Sexual Orientation Not on file documented as of this encounter Plan of Treatment Not on file documented as of this encounter Visit Diagnoses Diagnosis state, incidental documented in this encounter Care Teams Facility Service Manager Relationship Specialty Start Date End Date Dennis Clifton DO [facility] [place] [address] PCP - General Family Practice 07/28/21 03/26/24 documented as of this encounter
--- OUTSIDE RECORDS SUMMARY | 2025-05-22 08:02 | XMS_ITS | Encounter Summary ---
Author Organization [facility] Address [address] [place] [address] Care Team Providers Care Salesperson Furs Name Role Phone Dennis Clifton DO Primary Care Provider [phone] Encounter Details Date Type Department Care Team (Late st Contact Info) Description 10/08/2008 Outpatient Historical [facility] [address] [place] [address] Clementine Mccoy NO ADDRESS ON FILE Social History Tobacco Use Types Packs/Day Years Used Date Smoking Tobacco: Never Assessed Comments Unknown Sex and Gender Information Value Date Recorded Sex Assigned at Not on file Legal Sex Female 5:41 AM SUPPLY CHAIN GENERALIST Gender Identity Not on file Sexual Orientation Not on file documented as of this encounter Plan of Treatment Not on file documented as of this encounter Visit Diagnoses Not on filedocumented in this encounter Care Teams Salesperson Furs Relationship Specialty Start Date End Date Dennis Clifton DO [facility] [place] [address] PCP - General Family Practice 07/28/21 03/26/24 documented as of this encounter
--- OUTSIDE RECORDS SUMMARY | 2025-05-22 08:03 | XMS_ITS | Encounter Summary ---
Author Organization [facility] Address [address] [place] [address] Care Team Providers Care Manager Air Name Role Phone Dennis Clifton DO Primary Care Provider [phone] Encounter Details Date Type Department Care Team (Late st Contact Info) Description 11/29/2008 Outpatient Historical [facility] [address] [place] [address] Rufus Starr MD [address] [place], [place] [id number] Social History Tobacco Use Types Packs/Day Years Used Date Smoking Tobacco: Never Assessed Comments Unknown Sex and Gender Information Value Date Recorded Sex Assigned at Not on file Legal Sex Female 5:41 AM CRUSHED STONE GRADER Gender Identity Not on file Sexual Orientation Not on file documented as of this encounter Plan of Treatment Not on file documented as of this encounter Visit Diagnoses Not on filedocumented in this encounter Care Teams Manager Air Relationship Specialty Start Date End Date Dennis Clifton DO [address] [place] [phone] PCP - General Family Practice 07/28/21 03/26/24 documented as of this encounter
--- OUTSIDE RECORDS SUMMARY | 2025-05-22 08:03 | XMS_ITS | Encounter Summary ---
Author Organization [email or web address] Address [address] [place] [address] Care Team Providers Care Constitutional Law Professor Name Role Phone Dennis Clifton DO Primary Care Provider [phone] Encounter Details Date Type Department Care Team (Late st Contact Info) Description 05/06/2009 [facility] Oneal Cintron MD [address] [place] [address] State, Incidental Social History Tobacco Use Types Packs/Day Years Used Date Smoking Tobacco: Never Assessed Comments Unknown Sex and Gender Information Value Date Recorded Sex Assigned at Not on file Legal Sex Female 5:41 AM JET BLADE POLISHER Gender Identity Not on file Sexual Orientation Not on file documented as of this encounter Plan of Treatment Not on file documented as of this encounter Visit Diagnoses Diagnosis state, incidental documented in this encounter Care Teams Constitutional Law Professor Relationship Specialty Start Date End Date Dennis Clifton DO [address] [place] [phone] PCP - General Family Practice 07/28/21 03/26/24 documented as of this encounter
--- OUTSIDE RECORDS SUMMARY | 2025-05-22 08:03 | XMS_ITS | Encounter Summary ---
Author Organization [employer] Address [address] [place] [address] Care Team Providers Care Wireless Team Member Name Role Phone Dennis Clifton DO Primary Care Provider [phone] Encounter Details Date Type Department Care Team (Late st Contact Info) Description 12/26/2008 Outpatient [facility] Jose De Jesus Arriola MD NO ADDRESS ON FILE Supervision of Other Normal Social History Tobacco Use Types Packs/Day Years Used Date Smoking Tobacco: Never Assessed Comments Unknown Sex and Gender Information Value Date Recorded Sex Assigned at Not on file Legal Sex Female 5:41 AM LAP HAND TOOL Gender Identity Not on file Sexual Orientation Not on file documented as of this encounter Plan of Treatment Not on file documented as of this encounter Visit Diagnoses Diagnosis Supervision of other normal documented in this encounter Care Teams Wireless Team Member Relationship Specialty Start Date End Date Dennsi Clifton DO [facility] [place] [address] PCP - General Family Practice 07/28/21 03/26/24 documented as of this encounter
--- OUTSIDE RECORDS SUMMARY | 2025-05-22 08:03 | XMS_ITS | Encounter Summary ---
Author Organization [employer] Address [address] [place] [address] Care Team Providers Care Forge Press Operator Name Role Phone Dennis Clifton DO Primary Care Provider [phone] Encounter Details Date Type Department Care Team (Late st Contact Info) Description 11/19/2008 Outpatient [facility] Oneal Cintron MD [address] [place] [phone] LGSIL on Pap Smear Social History Tobacco Use Types Packs/Day Years Used Date Smoking Tobacco: Never Assessed Comments Unknown Sex and Gender Information Value Date Recorded Sex Assigned at Not on file Legal Sex Female 5:41 AM HOUSEKEEPING ATTENDANT Gender Identity Not on file Sexual Orientation Not on file documented as of this encounter Plan of Treatment Not on file documented as of this encounter Visit Diagnoses Diagnosis Papanicolaou smear of cervix with low grade squamous intraepithelial lesion (LGSIL) documented in this encounter Care Teams Forge Press Operator Relationship Specialty Start Date End Date Dennis Clifton DO [address] [place] [phone] PCP - General Family Practice 07/28/21 03/26/24 documented as of this encounter
--- OUTSIDE RECORDS SUMMARY | 2025-05-22 08:03 | XMS_ITS | Encounter Summary ---
Author Organization [facility] Address [address] [place] [address] Care Team Providers Care Colorist Dyer Name Role Phone Dennis Clifton DO Primary Care Provider [phone] Encounter Details Date Type Department Care Team (Late st Contact Info) Description 11/19/[address] [facility] [address] [place] [address] Oneal Cintron MD [id number] [place] [address] Social History Tobacco Use Types Packs/Day Years Used Date Smoking Tobacco: Never Assessed Comments Unknown Sex and Gender Information Value Date Recorded Sex Assigned at Not on file Legal Sex Female 5:41 AM OPEN END SPINNING OPERATOR Gender Identity Not on file Sexual Orientation Not on file documented as of this encounter Plan of Treatment Not on file documented as of this encounter Visit Diagnoses Not on filedocumented in this encounter Care Teams Colorist Dyer Relationship Specialty Start Date End Date Dennis Clifton DO [address] [place] [phone] PCP - General Family Practice 07/28/21 03/26/24 documented as of this encounter
--- OUTSIDE RECORDS SUMMARY | 2025-05-22 08:03 | XMS_ITS | Encounter Summary ---
Author Organization [facility] Address [address] [place] [address] Care Team Providers Care Real Time Trader Name Role Phone Dennis Clifton DO Primary Care Provider [phone] Encounter Details Date Type Department Care Team (Late st Contact Info) Description 05/06/2009 [facility] [address] [place] [address] Oneal Cintron MD [id number] [place] [address] Social History Tobacco Use Types Packs/Day Years Used Date Smoking Tobacco: Never Assessed Comments Unknown Sex and Gender Information Value Date Recorded Sex Assigned at Not on file Legal Sex Female 5:41 AM PRESIDENT & FOUNDER Gender Identity Not on file Sexual Orientation Not on file documented as of this encounter Plan of Treatment Not on file documented as of this encounter Visit Diagnoses Not on filedocumented in this encounter Care Teams Real Time Trader Relationship Specialty Start Date End Date Dennis Clifton DO [address] [place] [phone] PCP - General Family Practice 07/28/21 03/26/24 documented as of this encounter
--- OUTSIDE RECORDS SUMMARY | 2025-05-22 08:03 | XMS_ITS | Encounter Summary ---
Author Organization [employer] Address [address] [place] [address] Care Team Providers Care Turbine Assembler Name Role Phone Dennis Clifton DO Primary Care Provider [phone] Encounter Details Date Type Department Care Team (Latest Contact Info) Description 05/06/2009 Outpatient Historical [facility] Renae Hawkins MD NO ADDRESS ON FILE Post Term , Antepartum Condition or Complication Social History Tobacco Use Types Packs/Day Years Used Date Smoking Tobacco: Never Assessed Comments Unknown Sex and Gender Information Value Date Recorded Sex Assigned at Not on file Legal Sex Female 5:41 AM SPEECH THERAPY DIRECTOR Gender Identity Not on file Sexual Orientation Not on file documented as of this encounter Plan of Treatment Not on file documented as of this encounter Procedures Procedure Name Priority Date/Time Associated Diagnosis Comments US BIOPHYSICAL PROF W NST Timed Study 05/06/2009 2:06 PM CDT US OB LTD 1 OR MORE FETUSES Timed Study 05/06/2009 2:06 PM CDT documented in this encounter Results * US BIOPHYSICAL PROFILE (05/06/2009 2:06 PM CDT) Anatomical Region Laterality Modality Pelvis Other Narrative 05/06/2009 2:06 PM CDT FINAL - Order Information Only Procedure Note Jose Graham, RN - 09/30/2015 FINAL - Order Information Only Renae Hawkins MD ORDERABLES Final Result * US OB LTD 1 OR MORE FETUSES (05/06/2009 2:06 PM CDT) Anatomical Region Laterality Modality Pelvis Other Narrative 05/06/2009 2:06 PM CDT FINAL - Order Information Only Procedure Note Jose Graham, RN - 09/30/2015 FINAL - Order Information Only us Renae Hawkins MD ORDERABLES Final Result documented in this encounter Visit Diagnoses Diagnosis Post term , antepartum condition or complication documented in this encounter Care Teams Turbine Assembler Relationship Specialty Start Date End Date Dennis Clifton DO [address] [place] [phone] PCP - General Family Practice 07/28/21 03/26/24 documented as of this encounter
--- OUTSIDE RECORDS SUMMARY | 2025-05-22 08:03 | XMS_ITS | Encounter Summary ---
Author Organization [facility] Address 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 [place] [address] PCP - General Family Practice 07/28/21 03/26/24 documented as of this encounter
--- OUTSIDE RECORDS SUMMARY | 2025-05-22 08:03 | XMS_ITS | Encounter Summary ---
Author Organization [employer] Address 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
--- OUTSIDE RECORDS SUMMARY | 2025-05-22 08:03 | XMS_ITS | Encounter Summary ---
Author Organization [facility] Address [address] [place] [address] Care Team Providers Care Color Receiver Name Role Phone Dennis Clifton DO Primary Care Provider [phone] Encounter Details Date Type Department Care Team (Late st Contact Info) Description 12/09/2008 Outpatient Historical [facility] [address] [place] [address] Natacha Nelson MD [address] [place] [address] Social History Tobacco Use Types Packs/Day Years Used Date Smoking Tobacco: Never Assessed Comments Unknown Sex and Gender Information Value Date Recorded Sex Assigned at Not on file Legal Sex Female 5:41 AM LOAN COUNSELOR Gender Identity Not on file Sexual Orientation Not on file documented as of this encounter Plan of Treatment Not on file documented as of this encounter Visit Diagnoses Not on filedocumented in this encounter Care Teams Color Receiver Relationship Specialty Start Date End Date Dennis Clifton DO [address] [place] [phone] PCP - General Family Practice 07/28/21 03/26/24 documented as of this encounter
--- OUTSIDE RECORDS SUMMARY | 2025-05-22 08:03 | XMS_ITS | Encounter Summary ---
Author Organization [facility] Address [address] [place] [address] Care Team Providers Care Dipping Machine Operator Name Role Phone Dennis Clifton DO Primary Care Provider [phone] Encounter Details Date Type Department Care Team (Late st Contact Info) Description 12/16/2008 Outpatient Historical [facility] [address] [place] [address] Rufus Starr MD [address] [place], [place] [id number] Social History Tobacco Use Types Packs/Day Years Used Date Smoking Tobacco: Never Assessed Comments Unknown Sex and Gender Information Value Date Recorded Sex Assigned at Not on file Legal Sex Female 5:41 AM COMPACTOR DRIVER Gender Identity Not on file Sexual Orientation Not on file documented as of this encounter Plan of Treatment Not on file documented as of this encounter Visit Diagnoses Not on filedocumented in this encounter Care Teams Dipping Machine Operator Relationship Specialty Start Date End Date Dennis Clifton DO [address] [place] [phone] PCP - General Family Practice 07/28/21 03/26/24 documented as of this encounter
--- OUTSIDE RECORDS SUMMARY | 2025-05-22 08:03 | XMS_ITS | Encounter Summary ---
Author Organization [facility] Address [address] [place] [address] Care Team Providers Care Pet Care Assistant Name Role Phone Dennis Clifton DO Primary Care Provider [phone] Encounter Details Date Type Department Care Team (Late st Contact Info) Description 01/23/2009 Outpatient Historical [facility] Arriola, Jose De Jesus Art MD NO ADDRESS ON FILE Ilda Fenton DO [address] [place] [address] State, Incidental Social History Tobacco Use Types Packs/Day Years Used Date Smoking Tobacco: Never Assessed Comments Unknown Sex and Gender Information Value Date Recorded Sex Assigned at Not on file Legal Sex Female 5:41 AM MISSION ASSESSMENT SPECIALIST Gender Identity Not on file Sexual Orientation Not on file documented as of this encounter Plan of Treatment Not on file documented as of this encounter Procedures Procedure Name Priority Date/Time Associated Diagnosis Comments GLUCOSE TOLERANCE 1 HR GESTATIONAL Routine 01/23/2009 10:21 AM CDT HEMOGLOBIN AND HEMATOCRIT Routine 01/23/2009 10:21 AM CDT documented in this encounter Results * GLUCOSE TOLERANCE 1 HR GESTATIONAL (01/23/2009 10:21 AM CDT) GLUCOSE 1 HR OBSTETRIC 98 65 - 139 mg/dL [facility] Blood specimen (specimen) 01/23/2009 10:21 AM CDT 01/23/2009 10:33 AM CDT Jose De Jesus Arriola MD CHEMISTRY ORDERABLES Final Result Performing Organization Address City/[facility] de Phone Number INTERFACE SYSTEM Refer to clinic/hospital department [facility] CLIA# [id number] [address] [place] [address] * (ABNORMAL) HEMOGLOBIN AND HEMATOCRIT (01/23/2009 10:21 AM CDT) HEMOGLOBIN 10.8(L) 11.8 - 14.8 g/dL [facility] HEMATOCRIT 32.8(L) 35.5 - 44.0 % [facility] Blood specimen (specimen) 01/23/2009 10:21 AM CDT 01/23/2009 10:32 AM CDT Jose De Jesus Arriola MD HEMATOLOGY ORDERABLES Cami l Result Performing Organization Address [facility] de Phone Number INTERFACE SYSTEM Refer to clinic/hospital department [facility] CLIA# [id number] [address] [place] [address] documented in this encounter Visit Diagnoses Diagnosis state, incidental documented in this encounter Care Teams Pet Care Assistant Relationship Specialty Start Date End Date Dennis Clifton DO [address] [place] [address] [place] [address] PCP - General Family Practice 07/28/21 03/26/24 documented as of this encounter
--- OUTSIDE RECORDS SUMMARY | 2025-05-22 08:03 | XMS_ITS | Encounter Summary ---
Author Organization [facility] Address 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
--- OUTSIDE RECORDS SUMMARY | 2025-05-22 08:03 | XMS_ITS | Clinical Summary ---
Author Organization [facility] Address [address] [place] [address] Phone Care Team Providers Care Leadership Development Consultant Name Role Phone Unavailable Primary Care Provider Unavailabl e Allergies Active Allergy Reactions Criticality Noted Date Comments Amoxicillin Rash,Swelling Medium 05/10/2009 Amoxicillin-Pot Clavulanate Rash,Swelling Medium 04/22 Azithromycin Rash,Swelling Medium 05/10/2009 Potassium Clavulanate Rash Low 08/28/2020 Medications traZODone (DESYREL) 50 mg tablet Take 1-2 Tablets (50-100 mg) by mouth nightly as needed for Insomnia. 60 Tablet 2 01/31/2024 Active lamoTRIgine (LaMICtal) 200 mg tablet Take 1 Tablet (200 mg) by mouth 2 times daily. 60 Tablet 01/31/2024 Active Active Problems Problem Noted Date Diagnosed Date PTSD (post-traumatic stress disorder) 04/22/2023 Bipolar affective disorder, currently depressed, moderate 04/22/2023 History of alcohol abuse 04/22/2023 Post-op pain 09/01/2021 Post-operative nausea and vomiting 09/01/2021 General medical exam 08/31/2021 Increased risk of breast cancer 05/06/2020 Overview (07/28/2021): Ambry Custom Next + RNA insight negative, VUS: MLH1 (2020, Annita) Other insomnia 10/20/2018 Bruising 06/30/2018 Leukopenia 06/30/2018 Borderline personality disorder 06/23/2017 Anxiety state 06/23/2017 Overview (08/23/2018): R/o PTSD LGSIL on Pap smear of cervix; pos HPV 01/19/2017 Overview (02/11/2017): 01/2017: CIN1 on ECC Obesity (BMI 30.0-34.9) 03/31/2016 FHx: breast cancer 02/22/2014 Asthma 01/26/2014 Overview (03/07/2018): Overview: ASTHMA NOS Resolved Problems Problem Noted Date Diagnosed Date Resolved Date Weight gain due to medication 06/07/2019 07/04/2019 Bipolar I disorder with depression 05/14/2019 10/22/2021 Partner relational problem 04/07/2018 1 10/24/2017 Threatened labor at term 12/02/2016 S/P 12/02 repeat low transver se #4; girl Clarke 12/02/2016 02/02/2017 Round ligament pain 10/21/2016 12/03/19 17 Encounter for supervision of normal in second trimester 08/09/2016 02/02/2017 Overview (08/09/2016): Rpt c/s Borderline isabella- f/u scheduled Missed menses 05/25/2016 12/02/2016 Bipolar disorder, in partial remission, most recent episode hypomanic 03/31/2016 11/03/2023 rltcs 05/0605/06/2015 03/31/2016 contractions 04/17/2015 016 Clear vaginal discharge 04/17/201503/13 spotting, ctx, IV fluids. dc home 03/08/2015 03/31/2016 Leukocytosis 07/25/2014 03/31/2016 Acute pelvic inflammatory disease (PID) 07/24/2014 03/31/2016 Postoperative wound infection 09/23/2011 03/31/2016 JOE, rltcs 12.19; male, circ done 08/30/2011 03/31/2016 headache, scotomata, but nor motensive. Pre-e labs pending 07/30/2011 09/14/2011 hx LTCS (10cm, NRFHT(per pat ient), 8#10oz, CPD, prominent sacral promonotory per op note) 07/15/2011 03/31/2016 LGSIL on pap, colpo 06/29 neg 06/23/2011 03/31/2016 A+,HIV neg, RPR neg, HB neg, late care, 1hr WNL 06/10/2011 03/31/2016 Immunizations Immunization Administration Dates Next Due (ADACEL/BOOSTRIX)(10 YR UP) TDAP VACCINE, 0.5ML, IM 02/10/2011 (M-M-R II/PRIORIX)(12 MO UP) MEASLES, MUMPS AND RUBELLA VIRUS VACCINE, 0.5 ML IM/SUBCUT 05/08/2015 Tdap Vaccine > 7 Yo IM VFC 05/14/2009 Family History Medical History Relation Name Comments Healthy Brother No Known Problems Daughter clarke Heart Disease Father Naveen Mental illness Father Naveen borderline Schizophrenia Father Naveen Cancer Maternal Grandmother vance Schizophrenia Maternal Grandmother vance Breast Cancer Mother Melanie Cancer Mother Melanie Colon Cancer Mother Melanie Diabetes Mother Melanie Mental illness Mother Melanie Ovarian Cancer Mother Melanie Bipolar Disorder Sister 1 maritza Mental illness Sister 2 crystal Other Sister 2 crystal homicidality to boyfriend Asthma Son 1 ever Healthy Son 1 ever No Known Problems Son 2 jacy No Known Problems Son 3 matty Relation Name Status Comments Brother Alive no contact with brother Daughter clarke Alive Father Naveen Maternal Grandfather unaware of history Maternal Grandmother vance Mother Melanie Alive Paternal Grandfather unknown hx Paternal Grandmother unknown hx Sister 1 maritza Alive Sister 2 crystal Alive Sister 3 kaley Alive does not have r elationship Son 1 ever Alive Son 2 jacy Alive Son 3 matty Alive Social History Tobacco Use Types Packs/Day Years Used Date Smoking Tobacco: Former Cigarettes Q uit: 07/12/2014 Smokeless Tobacco: Never Tobacco Cessation:Counseling Given: Not Answered Alcohol Use Standard Drinks/Week Comments Yes 0 (1 standard drink = 0.6 oz pure alcohol) 2-12 shots of whiskey daily - depends on mood Food Insecurity Answer Date Recorded Social/Environmental Concerns No concerns;Househ old pets 04/22/2023 Transportation Needs Answer Date Record ed Social/Environmental Concerns No concerns;Househ old pets 04/22/2023 Housing Stability Answer Date Recorded Social/Environmental Concerns No concerns;Househ old pets 04/22/2023 Utility Needs Answer Date Recorded Social/Environmental Concerns No concerns;Househ old pets 04/22/2023 Education Answer Date Recorded What is the highest level of school you have completed or the highest degree you have received? 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 Not on file Not on file Not on file Last Filed Vital Signs Vital Sign Reading Time Taken Comments Blood Pressure 127/79 07/14/2023 9:27 AM CDT Pulse 74 07/14/2023 9:27 AM CDT Temperature 36.6 C (97.8 F) 07/14/2023 9:27 AM CDT Respiratory Rate 20 07/14/2023 9:27 AM CDT Oxygen Saturation 99% 07/14/2023 9:27 AM CDT Inhaled Oxygen Concentration - - Weight 87.5 kg (193 lb) 07/14/2023 9:27 AM CDT Height 157.5 cm (5' 2) 07/14/2023 9:27 AM CDT Body Mass Index 35.3 07/14/2023 9:27 AM CDT Plan of Treatment Health Maintenance Due Date Last Done Comments HEPATITIS B VACCINES (1 of 3 - 19+ 3-dose series) 2008 HPV VACCINES (1 - 3-dose SCD M series) 2016 DTAP/TDAP/TD VACCINES (3 - T d or Tdap) 02/10/2021 02/10/2011, 05/14/2009 PAP SMEAR 05/22/2024 05/22/2021, 05/13, 03/31/2020, Additional history exists INFLUENZA VACCINE (#1) 2025 , 10/08/2022, 07/28/2021 CERVICAL CANCER SCREENING 05/22/2026 HPV/Cotest (21-29) 05/22/2026 05/22/2021, 0 01/17/2017, 10/11/2011, Additional history exists HPV/Cotest (30-65) 05/22/2026 05/22/2021, 0 01/17/2017, 10/11/2011, Additional history exists Medical Devices Implanted Type Area Motorcycle Delivery Driver Device Identifier Shelf Expiration Date Model / Serial / Lot Barrier Seprafilm 5x6in [id number] - [id number] Implanted:Qty: 1 on 05/06/2015 by May Doan MD at [facility] Adhesion Barrier N/A: Abdomen [employer] 06/11/2017 [id number] / / [id number] Barrier Seprafilm 5x6in [id number] - [id number] Implanted:Qty: 1 on 12/02/2016 by Abi Guzmán MD at [facility] Adhesion Barrier N/A: Abdomen [employer] 01/09/2019 [id number] / / [id number] Iud Anchors X4 Rt Heel Procedures Procedure Name Priority Date/Time Associated Diagnosis Comments CERV/VAG CYTOPATH, THIN PREP DEPENDENCY COUNSELOR AND HPV Routine 05/22/2021 from Last 3 Months or Most Recently Relevant to Health Maintenance Results * CERV/VAG CYTOPATH, THIN PREP DEPENDENCY COUNSELOR AND HPV (05/22/2021) Genital SWAB OF ENDOCERVIX / Unknown us Abstract Provider PATHOLOGY/CYTOLOGY ORDERABLES Edited Result - Final [facility]# [id number] [address] [place] [address] [phone] from Last 3 Months or Most Recently Relevant to Health Maintenance Insurance RX GENERIC COMMERCIAL Commercial MEDICAID [place] Advance Directives For more information, please contact: [phone] * Full Code (Latest Code Status on File) Date Activated Date Inactivated Comments 08/31/2021 8:05 AM 09/01/2021 6:19 PM * Full Code Date Activated Date Inactivated Comments 12/02/2016 1:17 PM 12/05/2016 2:25 PM * Full Code Date Activated Date Inactivated Comments 12/02/2016 5:32 AM 12/02/2016 1:17 PM * Full Code Date Activated Date Inactivated Comments 12/02/2016 1:31 AM 12/02/2016 5:32 AM * Full Code Date Activated Date Inactivated Comments 10/21/2016 1:54 PM 10/21/2016 5:43 PM
--- OUTSIDE RECORDS SUMMARY | 2025-05-22 08:03 | XMS_ITS | Encounter Summary ---
Author Organization [facility] Address [address] [place] [address] Care Team Providers Care Public Safety Telecommunicator Name Role Phone Dennis Clifton DO Primary Care Provider [phone] Encounter Details Date Type Department Care Team (Late st Contact Info) Description 04/15/2009 Outpatient Historical [facility] Oneal Cintron MD [facility] [address] [address] Supervision of Other Normal Social History Tobacco Use Types Packs/Day Years Used Date Smoking Tobacco: Never Assessed Comments Unknown Sex and Gender Information Value Date Recorded Sex Assigned at Not on file Legal Sex Female 5:41 AM 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
--- OUTSIDE RECORDS SUMMARY | 2025-05-22 08:03 | XMS_ITS | Encounter Summary ---
Author Organization [facility] Address [address] [place] [address] Care Team Providers Care Technical Applications Specialist Name Role Phone Dennis Clifton DO Primary Care Provider [phone] Encounter Details Date Type Department Care Team (Late st Contact Info) Description 01/24/2009 Outpatient Historical [facility] [address] [place] [address] Ilda Fenton DO [address] [place], [place] [id number] Social History Tobacco Use Types Packs/Day Years Used Date Smoking Tobacco: Never Assessed Comments Unknown Sex and Gender Information Value Date Recorded Sex Assigned at Not on file Legal Sex Female 5:41 AM LEGAL INVESTIGATOR Gender Identity Not on file Sexual Orientation Not on file documented as of this encounter Plan of Treatment Not on file documented as of this encounter Visit Diagnoses Not on filedocumented in this encounter Care Teams Technical Applications Specialist Relationship Specialty Start Date End Date Dennis Clifton DO [facility] [place] [address] PCP - General Family Practice 07/28/21 03/26/24 documented as of this encounter
--- OUTSIDE RECORDS SUMMARY | 2025-05-22 08:03 | XMS_ITS | Encounter Summary ---
Author Organization [facility] Address [address] [place] [address] Care Team Providers Care Counselor At Law Name Role Phone Dennis Clifton DO Primary Care Provider [phone] Encounter Details Date Type Department Care Team (Late st Contact Info) Description 12/26/2008 Outpatient Historical [facility] [address] [place] [address] Jose De Jesus Arriola MD NO ADDRESS ON FILE Social History Tobacco Use Types Packs/Day Years Used Date Smoking Tobacco: Never Assessed Comments Unknown Sex and Gender Information Value Date Recorded Sex Assigned at Not on file Legal Sex Female 5:41 AM ENVIRONMENTAL QUALITY ANALYST Gender Identity Not on file Sexual Orientation Not on file documented as of this encounter Plan of Treatment Not on file documented as of this encounter Visit Diagnoses Not on filedocumented in this encounter Care Teams Counselor At Law Relationship Specialty Start Date End Date Dennis Clifton DO [address] [place] [phone] PCP - General Family Practice 07/28/21 03/26/24 documented as of this encounter
--- OUTSIDE RECORDS SUMMARY | 2025-05-22 08:03 | XMS_ITS | Encounter Summary ---
Author Organization [facility] Address 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
--- OUTSIDE RECORDS SUMMARY | 2025-05-22 08:03 | XMS_ITS | Encounter Summary ---
Author Organization [facility] Address 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
--- OUTSIDE RECORDS SUMMARY | 2025-05-22 08:03 | XMS_ITS | Encounter Summary ---
Author Organization [facility] Address 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
--- OUTSIDE RECORDS SUMMARY | 2025-05-22 08:03 | XMS_ITS | Encounter Summary ---
Author Organization [facility] Address 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 Gender Identity Not on file Sexual Orientation Not on file documented as of this encounter Plan of Treatment Not on file documented as of this encounter Procedures Procedure Name Priority Date/Time Associated Diagnosis Comments TSH REFLEXIVE Routine 12/02/2008 10:34 AM CDT CBC WITHOUT DIFFERENTIAL Routine 12/02/2008 10:34 AM CDT COMPREHENSIVE METABOLIC PANEL Routine 12/02/2008 10:34 AM CDT documented in this encounter Results * COMPREHENSIVE METABOLIC PANEL (12/02/2008 10:34 AM CDT) TOTAL PROTEIN 6.9 6.3 - 8.6 g/dL [facility] POTASSIUM 3.8 3.5 - 4.9 mmol/L [facility] GLUCOSE 81 65 - 99 mg/dL [facility] AST 13 12 - 32 U/L [facility] BUN 6 6 - 20 mg/dL [facility] CALCIUM 9.4 8.6 - 10.2 mg/dL [facility] CHLORIDE 101 96 - 108 mmol/L [facility] ALBUMIN 4.0 3.4 - 4.8 g/dL [facility] CREATININE 0.55 0.51 - 0.95 mg/dL [facility] SODIUM 136 135 - 145 mmol/L [facility] ALT 16 0 - 31 U/L [facility] ALKALINE PHOSPHATASE 64 35 - 104 U/L [facility] BILIRUBIN TOTAL 0.4 0.2 - 1.0 mg/dL [facility] CO2 26 22 - 30 mmol/L [facility] GFR, >60 >=60 mL/min/1.7 sq meter [facility] GFR >60 >=60 mL/min/1.7 sq meter [facility] Comment: Modification of Diet in Renal Disease (MDRD) study formula. Estimated GFR rate interpretative information for both Americans and non- Americans is available on the [facility] Intranet at: [email or web address] Select: Lab Policies and Procedures Select: Reference Ranges - GFR Blood specimen (specimen) 12/02/2008 10:34 AM CDT 12/02/2008 11:26 AM CDT us Rufus Starr MD CHEMISTRY ORDERABLES Edited INTERFACE SYSTEM Refer to clinic/hospital department [facility] CLIA# [id number] [address] [place] [address] * TSH REFLEXIVE (12/02/2008 10:34 AM CDT) TSH 1.97 0.27 - 4.20 uU/mL [facility] Blood specimen (specimen) 12/02/2008 10:34 AM CDT 12/02/2008 11:26 AM CDT Rufus Starr MD CHEMISTRY ORDERABLES Final Resul t Performing Organization Address City/State/[facility] Co de Phone Number INTERFACE SYSTEM Refer to clinic/hospital department [facility] CLIA# [id number] [address] [place] [address] * (ABNORMAL) CBC WITHOUT DIFFERENTIAL (12/02/2008 10:34 AM CDT) Pathologist [facility] MCV 86.2 82.0 - 99.0 fL [facility] PLATELETS 320 140 - 350 K/uL [facility] HEMOGLOBIN 12.3 11.8 - 14.8 g/dL [facility] RDW 14.0 11.5 - 14.5 % [facility] WBC 10.6(H) 4.0 - 9.8 K/uL [facility] MCH 28.8 27.2 - 32.6 pg [facility] MPV 9.9 9.3 - 12.4 fL [facility] HEMATOCRIT 36.8 35.5 - 44.0 % [facility] RDW-STDEV 43.4 37.1 - 48.7 fL [facility] RBC 4.27 3.90 - 4.90 M/uL [facility] MCHC 33.4 31.5 - 35.5 % [facility] Blood specimen (specimen) 12/02/2008 10:34 AM CDT 12/02/2008 11:14 AM CDT Rufus Starr MD HEMATOLOGY ORDERABLES Final Resu lt INTERFACE SYSTEM Refer to clinic/hospital department [facility] CLIA# [id number] [address] [place] [address] documented in this encounter Visit Diagnoses Diagnosis Headache(784.0) Headache documented in this encounter Care Teams Farm Tractor Mechanic Relationship Specialty Start Date End Date Dennis Clifton DO [facility] [place] [address] PCP - General Family Practice 07/28/21 03/26/24 documented as of this encounter
--- OUTSIDE RECORDS SUMMARY | 2025-05-22 08:03 | XMS_ITS | Encounter Summary ---
Author Organization [facility] Address 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
--- OUTSIDE RECORDS SUMMARY | 2025-05-22 08:03 | XMS_ITS | Encounter Summary ---
Author Organization [employer] Address 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 Gender Identity Not on file Sexual Orientation Not on file documented as of this encounter Plan of Treatment Not on file documented as of this encounter Procedures Procedure Name Priority Date/Time Associated Diagnosis Comments US OB LTD 1 OR MORE FETUSES Timed Study 12/18/2008 2:06 PM CDT documented in this encounter Results * US OB LTD 1 OR MORE FETUSES (12/18/2008 2:06 PM CDT) Anatomical Region Laterality Modality Pelvis Other Narrative 12/18/2008 2:06 PM CDT FINAL - Order Information Only Procedure Note Jose Graham, RN - 09/30/2015 FINAL - Order Information Only Jose De Jesus Arriola MD US ORDERABLES Final Resu lt documented in this encounter Visit Diagnoses Diagnosis Other specified complication, antepartum(646.83) Other specified complication, antepartum documented in this encounter Care Teams Cctv Technician Relationship Specialty Start Date End Date Dennis Clifton DO [address] [facility] [place] [address] PCP - General Family Practice 07/28/21 03/26/24 documented as of this encounter
--- OUTSIDE RECORDS SUMMARY | 2025-05-22 08:03 | XMS_ITS | Encounter Summary ---
Author Organization [facility] Address 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
--- OUTSIDE RECORDS SUMMARY | 2025-05-22 08:03 | XMS_ITS | Encounter Summary ---
Author Organization [employer] Address 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
--- OUTSIDE RECORDS SUMMARY | 2025-05-22 08:03 | XMS_ITS | Encounter Summary ---
Author Organization [employer] Address 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
--- OUTSIDE RECORDS SUMMARY | 2025-05-22 08:03 | XMS_ITS | Encounter Summary ---
Author Organization [employer] Address 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 SALT Gender Identity Not on file Sexual Orientation Not on file documented as of this encounter Plan of Treatment Not on file documented as of this encounter Procedures Procedure Name Priority Date/Time Associated Diagnosis Comments CBC WITH DIFFERENTIAL Stat 05/10/2009 4:12 PM CDT TYPE AND SCREEN Routine 05/10/2009 4:06 PM CDT documented in this encounter Results * (ABNORMAL) CBC WITH DIFFERENTIAL (05/10/2009 4:12 PM CDT) PLATELETS 268 140 - 350 K/uL [facility] HEMOGLOBIN 11.0(L) 11.8 - 14.8 g/dL [facility] RDW 14.5 11.5 - 14.5 % [facility] WBC 16.2(H) 4.0 - 9.8 K/uL [facility] MCH 27.3 27.2 - 32.6 pg [facility] MPV 9.8 9.3 - 12.4 fL [facility] HEMATOCRIT 33.5(L) 35.5 - 44.0 % [facility] RDW-STDEV 43.8 37.1 - 48.7 fL [facility] RBC 4.03 3.90 - 4.90 M/uL [facility] MCHC 32.8 31.5 - 35.5 % [facility] MCV 83.1 82.0 - 99.0 fL [facility] EOSINOPHILS 0 0 - 7 % [facility] EOSINOPHIL ABSOLUTE 0.01 0.00 - 0.70 K/uL [facility] LYMPHOCYTES 11(L) 16 - 45 % [facility] [place] LYMPHOCYTE ABSOLUTE 1.72 0.70 - 4.50 K/uL [facility] BASOPHILS 0 0 - 2 % [facility] BASOPHILS ABSOLUTE 0.01 0.00 - 0.20 K/uL [facility] MONOCYTES 7 3 - 13 % [facility] MONOCYTE ABSOLUTE 1.19 0.10 - 1.30 K/uL [facility] NEUTROPHILS 82(H) 45 - 70 % [facility] [place] [facility] NEUTROPHIL ABSOLUTE 13.31(H) 1.90 - 7.00 K/uL [facility] Blood specimen (specimen) 05/10/2009 4:12 PM CDT 05/10/2009 4:17 PM CDT us Oneal Cintron MD HEMATOLOGY ORDERABLES Edited [facility] CLIA# [id number] [address] [place] [address] * TYPE AND SCREEN (05/10/2009 4:06 PM CDT) HISTORY CHECK History Checked [facility] ABO/RH TYPE A Positive [facility] SPECIMEN LIFE 3 days from drawdate [facility] ANTIBODY SCREEN Negative [facility] Blood specimen (specimen) 05/10/2009 4:06 PM CDT us Oneal Cintron MD BLOOD BANK ORDERABLES Edited INTERFACE SYSTEM Refer to clinic/hospital department [facility] CLIA# [id number] [address] [place] [address] documented in this encounter Visit Diagnoses Not on filedocumented in this encounter Care Teams Collision Worker Relationship Specialty Start Date End Date Dennis Clifton DO [facility] [address] [address] PCP - General Family Practice 07/28/21 03/26/24 documented as of this encounter
--- OUTSIDE RECORDS SUMMARY | 2025-05-22 08:03 | XMS_ITS | Encounter Summary ---
Author Organization [employer] Address 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
--- OUTSIDE RECORDS SUMMARY | 2025-05-22 08:03 | XMS_ITS | Encounter Summary ---
Author Organization [facility] Address 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
--- OUTSIDE RECORDS SUMMARY | 2025-05-22 08:03 | XMS_ITS | Encounter Summary ---
Author Organization [facility] Address 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 Gender Identity Not on file Sexual Orientation Not on file documented as of this encounter Plan of Treatment Not on file documented as of this encounter Procedures Procedure Name Priority Date/Time Associated Diagnosis Comments CBC WITH DIFFERENTIAL Stat 02/26/2009 9:45 PM CDT COMPREHENSIVE METABOLIC PANEL Stat 02/26/2009 9:45 PM CDT URINALYSIS WITH REFLEX CULTURE Stat 02/26/2009 9:34 PM CDT URINALYSIS W/REFLEX MICROSCOPIC Stat 02/26/2009 9:34 PM CDT URINE CULTURE Stat 02/26/2009 9:34 PM CDT documented in this encounter Results * (ABNORMAL) CBC WITH DIFFERENTIAL (02/26/2009 9:45 PM CDT) RBC 3.96 3.90 - 4.90 M/uL [facility] MCHC 33.5 31.5 - 35.5 % [facility] MCV 85.9 82.0 - 99.0 fL [facility] PLATELETS 348 140 - 350 K/uL [facility] HEMOGLOBIN 11.4(L) 11.8 - 14.8 g/dL [facility] RDW 13.1 11.5 - 14.5 % [facility] WBC 13.2(H) 4.0 - 9.8 K/uL [facility] MCH 28.8 27.2 - 32.6 pg [facility] MPV 9.4 9.3 - 12.4 fL [facility] HEMATOCRIT 34.0(L) 35.5 - 44.0 % [facility] RDW-STDEV 40.9 37.1 - 48.7 fL [facility] NEUTROPHILS 70 45 - 70 % [facility] NEUTROPHIL ABSOLUTE 9.26(H) 1.90 - 7.00 K/uL [facility] EOSINOPHILS 1 0 - 7 % [facility] EOSINOPHIL ABSOLUTE 0.08 0.00 - 0.70 K/uL [facility] LYMPHOCYTES 23 16 - 45 % [facility] LYMPHOCYTE ABSOLUTE 2.98 0.70 - 4.50 K/uL [facility] BASOPHILS 0 0 - 2 % [facility] BASOPHILS ABSOLUTE 0.03 0.00 - 0.20 K/uL [facility] MONOCYTES 6 3 - 13 % [facility] MONOCYTE ABSOLUTE 0.83 0.10 - 1.30 K/uL [facility] 02/26/2009 9:45 PM CDT 02/26/2009 9:50 PM CDT us Damaris Mckeon MD HEMATOLOGY ORDERABLES Matt gavino INTERFACE SYSTEM Refer to clinic/hospital department [facility] CLIA# [id number] [address] [place] [address] * (ABNORMAL) COMPREHENSIVE METABOLIC PANEL (02/26/2009 9:45 PM CDT) ALKALINE PHOSPHATASE 91 35 - 104 U/L [facility] BILIRUBIN TOTAL 0.3 0.2 - 1.0 mg/dL [facility] CO2 21(L) 22 - 30 mmol/L [facility] TOTAL PROTEIN 6.6 6.3 - 8.6 g/dL [facility] POTASSIUM 3.5 3.5 - 4.9 mmol/L [facility] GLUCOSE 83 65 - 99 mg/dL [facility] AST 13 12 - 32 U/L [facility] BUN 5(L) 6 - 20 mg/dL [facility] CALCIUM 9.0 8.6 - 10.2 mg/dL [facility] CHLORIDE 103 96 - 108 mmol/L [facility] ALBUMIN 3.6 3.4 - 4.8 g/dL [facility] CREATININE 0.54 0.51 - 0.95 mg/dL [facility] SODIUM 136 135 - 145 mmol/L [facility] ALT 15 0 - 31 U/L [facility] GFR, >60 >=60 mL/min/1.7 sq meter [facility] GFR >60 >=60 mL/min/1.7 sq meter [facility] Comment: Modification of Diet in Renal Disease (MDRD) study formula. Estimated GFR rate interpretative information for both Americans and non- Americans is available on the [facility] Intranet at: [email or web address] Select: Lab Policies and Procedures Select: Reference Ranges - GFR 02/26/2009 9:45 PM CDT 02/26/2009 9:50 PM CDT us Damaris Mckeon MD CHEMISTRY ORDERABLES Edit ed Performing Organization Address [facility] de Phone Number INTERFACE SYSTEM Refer to clinic/hospital department [facility] CLIA# [id number] [address] [place] [address] * URINE CULTURE (02/26/2009 9:34 PM CDT) PRELIMINARY REPORT Pending [facility] FINAL REPORT No growth 24 hours [facility] 02/26/2009 9:34 PM CDT 02/26/2009 10:40 PM CDT us Damaris Mckeon MD MICROBIOLOGY - GENERAL OR DERABLES Final Result Performing Organization Address [facility] Phone Number INTERFACE SYSTEM Refer to clinic/hospital department [facility] CLIA# [id number] [address] [place] [address] * (ABNORMAL) URINALYSIS (02/26/2009 9:34 PM CDT) LEUKOCYTE ESTERASE UA 1+(A) Negative [facility] RBC UA <1 0 - 4 /HPF [facility] SPECIFIC GRAVITY UA 1.011 1.001 - 1.035 [facility] GLUCOSE UA Negative Negative [facility] BLOOD UA Negative Negative [facility] COLOR UA Yellow [facility] NITRITE UA Negative Negative [facility] BACTERIA UA 1+(A) None Seen /HPF [facility] UROBILINOGEN UA <1 <=1 mg/dL [facility] PH UA 7.0 5.0 - 8.0 [facility] WBC UA 3 0 - 5 /HPF [facility] KETONES UA Negative Negative [facility] CLARITY UA Slt. Cloudy(A) Clear [facility] BILIRUBIN UA Negative Negative [facility] PROTEIN UA Negative Negative [facility] EPITHELIAL CELLS, URINE 5-10 /HPF [facility] 02/26/2009 9:34 PM CDT 02/26/2009 9:39 PM CDT Damaris Mckeon MD URINE ORDERABLES Final Re sult Performing Organization Address [facility] Phone Number INTERFACE SYSTEM Refer to clinic/hospital department [facility] CLIA# [id number] [address] [address] * URINALYSIS WITH REFLEX CULTURE (02/26/2009 9:34 PM CDT) URINE CULTURE ORDER Culture ordered [facility] Comment: Criteria for a reflex culture include one or more of the following: Abnormal nitrite, leukocyte esterase, WBCs or RBCs. Lack of qualifying criteria does not exclude the possiblity of a urinary tract infection. Dilute urine, drug interference, etc. may decrease the sensitivity of the criteria analytes. 02/26/2009 9:34 PM CDT 02/26/2009 9:39 PM CDT Damaris Mckeon MD URINE ORDERABLES Final Re sult Performing Organization Address [facility] de Phone Number INTERFACE SYSTEM Refer to clinic/hospital department [facility] CLIA# [id number] [address] [place] [address] documented in this encounter Visit Diagnoses Diagnosis Normal delivery documented in this encounter Care Teams Contact Lens Blocker And Cutter Relationship Specialty Start Date End Date Dennis Clifton DO [address] [place] [address] [place] [address] PCP - General Family Practice 07/28/21 03/26/24 documented as of this encounter
--- OUTSIDE RECORDS SUMMARY | 2025-05-22 08:03 | XMS_ITS | Encounter Summary ---
Author Organization [facility] Address [address] [place] [address] Care Team Providers Care It Lead Name Role Phone Dennis Clifton DO Primary Care Provider [phone] Encounter Details Date Type Department Care Team (Late st Contact Info) Description 01/24/2009 Outpatient Historical [facility] [address] [place] [phone] Marc Lloyd MD NO ADDRESS ON FILE Social History Tobacco Use Types Packs/Day Years Used Date Smoking Tobacco: Never Assessed Comments Unknown Sex and Gender Information Value Date Recorded Sex Assigned at Not on file Legal Sex Female 5:41 AM ORDERLY Gender Identity Not on file Sexual Orientation Not on file documented as of this encounter Plan of Treatment Not on file documented as of this encounter Visit Diagnoses Not on filedocumented in this encounter Care Teams It Lead Relationship Specialty Start Date End Date Dennis Clifton DO [facility] [place] [address] PCP - General Family Practice 07/28/21 03/26/24 documented as of this encounter
--- OUTSIDE RECORDS SUMMARY | 2025-05-22 08:03 | XMS_ITS | Encounter Summary ---
Author Organization [facility] Address 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 Gender Identity Not on file Sexual Orientation Not on file documented as of this encounter Plan of Treatment Not on file documented as of this encounter Procedures Procedure Name Priority Date/Time Associated Diagnosis Comments URINALYSIS W/REFLEX MICROSCOPIC Stat 04/13/2009 6:13 PM CDT documented in this encounter Results * (ABNORMAL) URINALYSIS (04/13/2009 6:13 PM CDT) BLOOD UA Negative Negative [facility] COLOR UA Yellow [facility] NITRITE UA Negative Negative [facility] BACTERIA UA 2+(A) None Seen /HPF [facility] UROBILINOGEN UA <1 <=1 mg/dL [facility] PH UA 6.0 5.0 - 8.0 [facility] WBC UA 4 0 - 5 /HPF [facility] KETONES UA Negative Negative [facility] CLARITY UA Clear Clear [facility] BILIRUBIN UA Negative Negative [facility] PROTEIN UA Negative Negative [facility] EPITHELIAL CELLS, URINE 2-5 /HPF [facility] LEUKOCYTE ESTERASE UA Trace(A) Negative [facility] RBC UA 1 0 - 4 /HPF [facility] SPECIFIC GRAVITY UA 1.011 1.001 - 1.035 [facility] GLUCOSE UA Negative Negative [facility] Urine specimen (specimen) 04/13/2009 6:13 PM CDT 04/13/2009 6:17 PM CDT us Rufus Arellano MD URINE ORDERABLES Final Resul t [facility] CLIA# [id number] [address] [place] [address] documented in this encounter Visit Diagnoses Not on filedocumented in this encounter Care Teams Mechanic Insulator Relationship Specialty Start Date End Date Dennis Clifton DO [address] [place] [address] PCP - General Family Practice 07/28/21 03/26/24 documented as of this encounter
--- OUTSIDE RECORDS SUMMARY | 2025-05-22 08:03 | XMS_ITS | Encounter Summary ---
Author Organization [employer] Address 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
--- OUTSIDE RECORDS SUMMARY | 2025-05-22 08:03 | XMS_ITS | Encounter Summary ---
Author Organization [facility] Address 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
--- OUTSIDE RECORDS SUMMARY | 2025-05-22 08:03 | XMS_ITS | Encounter Summary ---
Author Organization [employer] Address [address] [place] [address] Care Team Providers Care Dude Ranch Manager Name Role Phone Dennis Clifton DO Primary Care Provider [phone] Encounter Details Date Type Department Care Team (Late st Contact Info) Description 04/29/2009 Outpatient Historical [facility] Oneal Cintron MD [facility] [address] [address] Supervision of Other Normal Social History Tobacco Use Types Packs/Day Years Used Date Smoking Tobacco: Never Assessed Comments Unknown Sex and Gender Information Value Date Recorded Sex Assigned at Not on file Legal Sex Female 5:41 AM ADJUNCT PSYCHOLOGY INSTRUCTOR Gender Identity Not on file Sexual Orientation Not on file documented as of this encounter Plan of Treatment Not on file documented as of this encounter Visit Diagnoses Diagnosis Supervision of other normal documented in this encounter Care Teams Dude Ranch Manager Relationship Specialty Start Date End Date Dennis Cliftno DO [address] [place] [phone] PCP - General Family Practice 07/28/21 03/26/24 documented as of this encounter
--- OUTSIDE RECORDS SUMMARY | 2025-05-22 08:03 | XMS_ITS | Encounter Summary ---
Author Organization [employer] Address 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
--- OUTSIDE RECORDS SUMMARY | 2025-05-22 08:03 | XMS_ITS | Encounter Summary ---
Author Organization [facility] Address 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
[2025-05-22 08:10] LABS: Hematocrit 47.4 % (37.0-47.0); Hemoglobin 15.8 g/dL (12.0-15.0); Immature Granulocyte Percent A 0.2 % (0-0.5); Lymphocytes Absolute Auto 0.92 K/mm3 (0.9-3.2); Mean Corpuscular HGB Conc 33.3 g/dl (32-36); Mean Corpuscular Hemoglobin 34.9 pg (26-34); Mean Corpuscular Volume 104.6 fl (80-100); Nucleated Red Blood Cells Absolute Auto 0.000 K/mm3 (0.0-0.012); Nucleated Red Blood Cells Perc 0.0 % (0.0-0.2); Platelet Count Result 132 k/mm3 (150-375); Red Blood Count 4.53 M/mm3 (4.2-5.4); White Blood Count 5.2 K/mm3 (4.5-10.0)
[2025-05-22 08:14] LABS: Non Pathogenic Casts 0-2
[2025-05-22 08:17] LABS: Add Urine Microscopic? YES; Appearance Urine Cloudy (Clear); Glucose Urine UA Negative (Negative); Leukocyte Esterase Ur 2+ LEU/UL (Negative); Nitrate Urine Positive (Negative); Specific Grav Ur 1.028 (1.001-1.035)
[2025-05-22] MEDS: LACTATED RINGERS 1,000 ML 999 ML IV CONT (08:18)
[2025-05-22] MEDS: METOCLOPRAMIDE HCL INJ 10 MG/2 ML VIAL IV PUSH (08:18)
[2025-05-22 08:25] LABS: Alanine Aminotransferase 160 U/L (6-35); Albumin Level 4.4 g/dL (3.5-5.1); Alkaline Phosphatase 164 U/L (38-126); Anion Gap 11 mmol/L (4-12); Aspartate Amino Transferase 303 U/L (14-36); Bilirubin,Total 5.3 mg/dL (0.2-1.3); Blood Urea Nitrogen 8 mg/dL (7-17); Calcium 8.9 mg/dL (8.4-10.2); Carbon Dioxide 26 mmol/L (22-30); Chloride 101 mmol/L (98-107); Estimated CRCL calculation 92 ml/min; Estimated Glomerular Filt Rate > 60; Glucose 102 mg/dL (65-110); Lipase 108 U/L (23-300); Potassium 3.8 mmol/L (3.4-5.0); Sodium 138 mmol/L (137-145); Total Protein 8.0 g/dL (6.3-8.2)
--- OUTSIDE RECORDS SUMMARY | 2025-05-22 08:25 | XMS_ITS | Encounter Summary ---
Author Organization [facility] Address [address] [place] [address] Care Team Providers Care Finance Lecturer Name Role Phone Dennis Clifotn DO Primary Care Provider [phone] Encounter Details Date Type Department Care Team (Late st Contact Info) Description 03/28/2009 Outpatient Historical [facility] [address] [facility] [place] [address] Constantin House MD [address] [place], [place] [id number] Social History Tobacco Use Types Packs/Day Years Used Date Smoking Tobacco: Never Assessed Comments Unknown Sex and Gender Information Value Date Recorded Sex Assigned at Not on file Legal Sex Female 5:41 AM LEADLIGHTER Gender Identity Not on file Sexual Orientation Not on file documented as of this encounter Plan of Treatment Not on file documented as of this encounter Visit Diagnoses Not on filedocumented in this encounter Care Teams Finance Lecturer Relationship Specialty Start Date End Date Dennis Clifton DO [address] [place] [phone] PCP - General Family Practice 07/28/21 03/26/24 documented as of this encounter
--- OUTSIDE RECORDS SUMMARY | 2025-05-22 08:25 | XMS_ITS | Encounter Summary ---
Author Organization [facility] Address [address] [place] [address] Care Team Providers Care Link Trainer Maintenance Man Name Role Phone Dennis Clifton DO Primary Care Provider [phone] Encounter Details Date Type Department Care Team (Late st Contact Info) Description 04/11/2009 Outpatient Historical [facility] [address] [place] [address] Social History Tobacco Use Types Packs/Day Years Used Date Smoking Tobacco: Never Assessed Comments Unknown Sex and Gender Information Value Date Recorded Sex Assigned at Not on file Legal Sex Female 5:41 AM ENGINE MANAGER Gender Identity Not on file Sexual Orientation Not on file documented as of this encounter Plan of Treatment Not on file documented as of this encounter Visit Diagnoses Not on filedocumented in this encounter Care Teams Link Trainer Maintenance Man Relationship Specialty Start Date End Date Dennis Clifton DO [address] [place] [phone] PCP - General Family Practice 07/28/21 03/26/24 documented as of this encounter
--- OUTSIDE RECORDS SUMMARY | 2025-05-22 08:25 | XMS_ITS | Encounter Summary ---
Author Organization [employer] Address 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
--- OUTSIDE RECORDS SUMMARY | 2025-05-22 08:25 | XMS_ITS | Encounter Summary ---
Author Organization [facility] Address [address] [place] [address] Care Team Providers Care Top Distribution Executive Name Role Phone Dennis Clifton DO Primary Care Provider [phone] Encounter Details Date Type Department Care Team (Late st Contact Info) Description 03/28/2009 Outpatient Historical [facility] [address] [place] [phone] Adilene Marquez MD NO ADDRESS ON FILE Social History Tobacco Use Types Packs/Day Years Used Date Smoking Tobacco: Never Assessed Comments Unknown Sex and Gender Information Value Date Recorded Sex Assigned at Not on file Legal Sex Female 5:41 AM VENDOR MANAGEMENT ASSOCIATE Gender Identity Not on file Sexual Orientation Not on file documented as of this encounter Plan of Treatment Not on file documented as of this encounter Visit Diagnoses Not on filedocumented in this encounter Care Teams Top Distribution Executive Relationship Specialty Start Date End Date Dennis Clifton DO [facility] [place] [address] PCP - General Family Practice 07/28/21 03/26/24 documented as of this encounter
--- OUTSIDE RECORDS SUMMARY | 2025-05-22 08:25 | XMS_ITS | Encounter Summary ---
Author Organization [facility] Address [address] [place] [address] Care Team Providers Care Art History Instructor Name Role Phone Dennis Clifton DO Primary Care Provider [phone] Encounter Details Date Type Department Care Team (Late st Contact Info) Description 04/03/2009 Outpatient Historical [facility] [address] [place] [address] Jose De Jesus Arriola MD NO ADDRESS ON FILE Social History Tobacco Use Types Packs/Day Years Used Date Smoking Tobacco: Never Assessed Comments Unknown Sex and Gender Information Value Date Recorded Sex Assigned at Not on file Legal Sex Female 5:41 AM RISK MANAGEMENT PROFESSIONAL Gender Identity Not on file Sexual Orientation Not on file documented as of this encounter Plan of Treatment Not on file documented as of this encounter Visit Diagnoses Not on filedocumented in this encounter Care Teams Art History Instructor Relationship Specialty Start Date End Date Dennis Clifton DO [address] [place] [phone] PCP - General Family Practice 07/28/21 03/26/24 documented as of this encounter
--- OUTSIDE RECORDS SUMMARY | 2025-05-22 08:25 | XMS_ITS | Encounter Summary ---
Author Organization [employer] Address [address] [place] [address] Care Team Providers Care Fixed Income Manager Name Role Phone Dennis Clifton DO Primary Care Provider [phone] Encounter Details Date Type Department Care Team (Late st Contact Info) Description 03/30/2009 Inpatient Historical [facility] Andrés Gannon MD [address] [facility] [address] [place] [phone] Normal Delivery Social History Tobacco Use Types Packs/Day Years Used Date Smoking Tobacco: Never Assessed Comments Unknown Sex and Gender Information Value Date Recorded Sex Assigned at Not on file Legal Sex Female 5:41 AM HYDRAULIC BILLET MAKER Gender Identity Not on file Sexual Orientation Not on file documented as of this encounter Plan of Treatment Not on file documented as of this encounter Visit Diagnoses Diagnosis Normal delivery documented in this encounter Care Teams Fixed Income Manager Relationship Specialty Start Date End Date Dennis Clifton DO [address] [place] [phone] PCP - General Family Practice 07/28/21 03/26/24 documented as of this encounter
--- OUTSIDE RECORDS SUMMARY | 2025-05-22 08:25 | XMS_ITS | Encounter Summary ---
Author Organization [facility] Address [address] [place] [address] Care Team Providers Care Federal Judicial Law Clerk Name Role Phone Dennis Clifton DO Primary Care Provider [phone] Encounter Details Date Type Department Care Team (Late st Contact Info) Description 04/11/2009 Outpatient Historical [facility] [address] [place] [address] Social History Tobacco Use Types Packs/Day Years Used Date Smoking Tobacco: Never Assessed Comments Unknown Sex and Gender Information Value Date Recorded Sex Assigned at Not on file Legal Sex Female 5:41 AM PAN RECLAIM PROCESSOR Gender Identity Not on file Sexual Orientation Not on file documented as of this encounter Plan of Treatment Not on file documented as of this encounter Visit Diagnoses Not on filedocumented in this encounter Care Teams Federal Judicial Law Clerk Relationship Specialty Start Date End Date Dennis Clifton DO [address] [place] [phone] PCP - General Family Practice 07/28/21 03/26/24 documented as of this encounter
--- OUTSIDE RECORDS SUMMARY | 2025-05-22 08:26 | XMS_ITS | Encounter Summary ---
Author Organization [facility] Address [address] [place] [address] Care Team Providers Care Scientific Programmer Name Role Phone Dennis Clifton DO Primary Care Provider [phone] Encounter Details Date Type Department Care Team (Late st Contact Info) Description 03/17/2009 Outpatient Historical [facility] [address] [place] [address] Adilene Marquez MD NO ADDRESS ON FILE Social History Tobacco Use Types Packs/Day Years Used Date Smoking Tobacco: Never Assessed Comments Unknown Sex and Gender Information Value Date Recorded Sex Assigned at Not on file Legal Sex Female 5:41 AM SOLAR ENERGY SYSTEM 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
--- OUTSIDE RECORDS SUMMARY | 2025-05-22 08:26 | XMS_ITS | Encounter Summary ---
Author Organization [employer] Address [address] [place] [address] Care Team Providers Care Internet Webmaster Name Role Phone Dennis Clifton DO Primary Care Provider [phone] Encounter Details Date Type Department Care Team [...] on file Legal Sex Female 5:41 AM BUCKLE STAPLER Gender Identity Not on file Sexual Orientation Not on file documented as of this encounter Plan of Treatment Not on file documented as of this encounter Visit Diagnoses Diagnosis Supervision of other normal documented in this encounter Care Teams Internet Webmaster Relationship Specialty Start Date End Date Dennis Clifton DO [facility]note 2[facility] [place] [address] PCP - General Family Practice 07/28/21 03/26/24 documented as of this encounter
--- OUTSIDE RECORDS SUMMARY | 2025-05-22 08:26 | XMS_ITS | Encounter Summary ---
Author Organization [employer] Address 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 [facility] 03/27/2009 4:16 PM CDT 03/27/2009 6:55 PM CDT us Jose De Jesus Arriola MD MICROBIOLOGY - GENERAL ORD ERABLES Final Result INTERFACE SYSTEM Refer to clinic/hospital department [facility] CLIA# [id number] [address] [place] [address] documented in this encounter Visit Diagnoses Diagnosis state, incidental documented in this encounter Care Teams Wrapper Stemmer Hand Relationship Specialty Start Date End Date Dennis Clifton DO [facility] [place] [address] PCP - General Family Practice 07/28/21 03/26/24 documented as of this encounter
--- OUTSIDE RECORDS SUMMARY | 2025-05-22 08:26 | XMS_ITS | Encounter Summary ---
Author Organization [facility] Address [address] [place] [address] Care Team Providers Care Flexible Machining System Machinist Name Role Phone Dennis Clifton DO Primary Care Provider [phone] Encounter Details Date Type Department Care Team (Late st Contact Info) Description 03/13/2009 Outpatient Historical [facility] [address] [place] [address] Cholo Escobar MD [address] [place] [address] [place] [phone] Social History Tobacco Use Types Packs/Day Years Used Date Smoking Tobacco: Never Assessed Comments Unknown Sex and Gender Information Value Date Recorded Sex Assigned at Not on file Legal Sex Female 5:41 AM SALES AGENT Gender Identity Not on file Sexual Orientation Not on file documented as of this encounter Plan of Treatment Not on file documented as of this encounter Visit Diagnoses Not on filedocumented in this encounter Care Teams Flexible Machining System Machinist Relationship Specialty Start Date End Date Dennis Clifton DO [address] [place] [phone] PCP - General Family Practice 07/28/21 03/26/24 documented as of this encounter
--- OUTSIDE RECORDS SUMMARY | 2025-05-22 08:26 | XMS_ITS | Encounter Summary ---
Author Organization [facility] Address [address] [place] [address] Care Team Providers Care Jr. Systems Administrator Name Role Phone Dennis Clifton DO Primary Care Provider [phone] Encounter Details Date Type Department Care Team (Late st Contact Info) Description 12/16/2008 Outpatient Historical [facility] [address] [place] [address] Rufus Starr MD [address] [place], [place] [id number] Social History Tobacco Use Types Packs/Day Years Used Date Smoking Tobacco: Never Assessed Comments Unknown Sex and Gender Information Value Date Recorded Sex Assigned at Not on file Legal Sex Female 5:41 AM DECKHAND Gender Identity Not on file Sexual Orientation Not on file documented as of this encounter Plan of Treatment Not on file documented as of this encounter Visit Diagnoses Not on filedocumented in this encounter Care Teams Jr. Systems Administrator Relationship Specialty Start Date End Date Dennis Clifton DO [address] [place] [phone] PCP - General Family Practice 07/28/21 03/26/24 documented as of this encounter
--- OUTSIDE RECORDS SUMMARY | 2025-05-22 08:26 | XMS_ITS | Encounter Summary ---
Author Organization [facility] Address [address] [place] [address] Care Team Providers Care Gang Miner Name Role Phone Dennis Clifton DO Primary Care Provider [phone] Encounter Details Date Type Department Care Team (Late st Contact Info) Description 02/20/2009 Outpatient Historical [facility] [address] [place] [address] Jose De Jesus Arriola MD NO ADDRESS ON FILE Social History Tobacco Use Types Packs/Day Years Used Date Smoking Tobacco: Never Assessed Comments Unknown Sex and Gender Information Value Date Recorded Sex Assigned at Not on file Legal Sex Female 5:41 AM ACCOUNT DEVELOPER Gender Identity Not on file Sexual Orientation Not on file documented as of this encounter Plan of Treatment Not on file documented as of this encounter Visit Diagnoses Not on filedocumented in this encounter Care Teams Gang Miner Relationship Specialty Start Date End Date Dennis Clifton DO [facility] [place] [address] PCP - General Family Practice 07/28/21 03/26/24 documented as of this encounter
--- OUTSIDE RECORDS SUMMARY | 2025-05-22 08:26 | XMS_ITS | Encounter Summary ---
Author Organization [facility] Address [address] [place] [address] Care Team Providers Care Sock Lining Examiner Name Role Phone Dennis Clifton DO Primary Care Provider [phone] Encounter Details Date Type Department Care Team (Late st Contact Info) Description 04/10/2009 Outpatient Historical [facility] [address] [place] [address] Jose De Jesus Arriola MD NO ADDRESS ON FILE Social History Tobacco Use Types Packs/Day Years Used Date Smoking Tobacco: Never Assessed Comments Unknown Sex and Gender Information Value Date Recorded Sex Assigned at Not on file Legal Sex Female 5:41 AM CHEMIST STEROIDS Gender Identity Not on file Sexual Orientation Not on file documented as of this encounter Plan of Treatment Not on file documented as of this encounter Visit Diagnoses Not on filedocumented in this encounter Care Teams Sock Lining Examiner Relationship Specialty Start Date End Date Dennis Clifton DO [facility]3 [place] [address] PCP - General Family Practice 07/28/21 03/26/24 documented as of this encounter
--- OUTSIDE RECORDS SUMMARY | 2025-05-22 08:26 | XMS_ITS | Encounter Summary ---
Author Organization [facility] Address 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 Gender Identity Not on file Sexual [...] CDT) RBC 3.96 3.90 - 4.90 M/uL [facility] MCHC 33.5 31.5 - 35.5 % [facility] MCV 85.9 82.0 - 99.0 fL [facility] PLATELETS 348 140 - 350 K/uL [facility] HEMOGLOBIN 11.4(L) 11.8 - 14.8 g/dL [facility] RDW 13.1 11.5 - 14.5 % [facility] WBC 13.2(H) 4.0 - 9.8 K/uL [facility] MCH 28.8 27.2 - 32.6 pg [facility] MPV 9.4 9.3 - 12.4 fL [facility] HEMATOCRIT 34.0(L) 35.5 - 44.0 % [facility] RDW-STDEV 40.9 37.1 - 48.7 fL [facility] NEUTROPHILS 70 45 - 70 % [facility] NEUTROPHIL ABSOLUTE 9.26(H) 1.90 - 7.00 K/uL [facility] EOSINOPHILS 1 0 - 7 % [facility] EOSINOPHIL ABSOLUTE 0.08 0.00 - 0.70 K/uL [facility] LYMPHOCYTES 23 16 - 45 % [facility] LYMPHOCYTE ABSOLUTE 2.98 0.70 - 4.50 K/uL [facility] BASOPHILS 0 0 - 2 % [facility] BASOPHILS ABSOLUTE 0.03 0.00 - 0.20 K/uL [facility] MONOCYTES 6 3 - 13 % [facility] MONOCYTE ABSOLUTE 0.83 0.10 - 1.30 K/uL [facility] 02/26/2009 9:45 PM CDT 02/26/2009 9:50 PM CDT us Damaris Mckeon MD HEMATOLOGY ORDERABLES Matt gavino INTERFACE SYSTEM Refer to clinic/hospital department [facility] CLIA# [id number] [address] [place] [address] * (ABNORMAL) COMPREHENSIVE METABOLIC PANEL (02/26/2009 9:45 PM CDT) ALKALINE PHOSPHATASE 91 35 - 104 U/L [facility] BILIRUBIN TOTAL 0.3 0.2 - 1.0 mg/dL [facility] CO2 21(L) 22 - 30 mmol/L [facility] TOTAL PROTEIN 6.6 6.3 - 8.6 g/dL [facility] POTASSIUM 3.5 3.5 - 4.9 mmol/L [facility] GLUCOSE 83 65 - 99 mg/dL [facility] AST 13 12 - 32 U/L [facility] BUN 5(L) 6 - 20 mg/dL [facility] CALCIUM 9.0 8.6 - 10.2 mg/dL [facility] CHLORIDE 103 96 - 108 mmol/L [facility] ALBUMIN 3.6 3.4 - 4.8 g/dL [facility] CREATININE 0.54 0.51 - 0.95 mg/dL [facility] SODIUM 136 135 - 145 mmol/L [facility] ALT 15 0 - 31 U/L [facility] GFR, >60 >=60 mL/min/1.7 sq meter [facility] GFR >60 >=60 mL/min/1.7 sq meter [facility] Comment: Modification of Diet in Renal Disease (MDRD) study formula. Estimated GFR rate interpretative information for both Americans and non- Americans is available on the [facility] Intranet at: [email or web address] Select: Lab Policies and Procedures Select: Reference Ranges - GFR 02/26/2009 9:45 PM CDT 02/26/2009 9:50 PM CDT us Damaris Mckeon MD CHEMISTRY ORDERABLES Edit ed Performing Organization Address [facility] de Phone Number INTERFACE SYSTEM Refer to clinic/hospital department [facility] CLIA# [id number] [address] [place] [address] * URINE CULTURE (02/26/2009 9:34 PM CDT) PRELIMINARY REPORT Pending [facility] FINAL REPORT No growth 24 hours [facility] 02/26/2009 9:34 PM CDT 02/26/2009 10:40 PM CDT us Damaris Mckeon MD MICROBIOLOGY - GENERAL OR DERABLES Final Result Performing Organization Address [facility] Phone Number INTERFACE SYSTEM Refer to clinic/hospital department [facility] CLIA# [id number] [address] [place] [address] * (ABNORMAL) URINALYSIS (02/26/2009 9:34 PM CDT) LEUKOCYTE ESTERASE UA 1+(A) Negative [facility] RBC UA <1 0 - 4 /HPF [facility] SPECIFIC GRAVITY UA 1.011 1.001 - 1.035 [facility] GLUCOSE UA Negative Negative [facility] BLOOD UA Negative Negative [facility] COLOR UA Yellow [facility] NITRITE UA Negative Negative [facility] BACTERIA UA 1+(A) None Seen /HPF [facility] UROBILINOGEN UA <1 <=1 mg/dL [facility] PH UA 7.0 5.0 - 8.0 [facility] WBC UA 3 0 - 5 /HPF [facility] KETONES UA Negative Negative [facility] CLARITY UA Slt. Cloudy(A) Clear [facility] BILIRUBIN UA Negative Negative [facility] PROTEIN UA Negative Negative [facility] EPITHELIAL CELLS, URINE 5-10 /HPF [facility] 02/26/2009 9:34 PM CDT 02/26/2009 9:39 PM CDT Damaris Mckeon MD URINE ORDERABLES Final Re sult Performing Organization Address [facility] Phone Number INTERFACE SYSTEM Refer to clinic/hospital department [facility] CLIA# [id number] [address] [address] * URINALYSIS WITH REFLEX CULTURE (02/26/2009 9:34 PM CDT) URINE CULTURE ORDER Culture ordered [facility] Comment: Criteria for a reflex culture [...] ORDERABLES Final Re sult Performing Organization Address [facility] de Phone Number INTERFACE SYSTEM Refer to clinic/hospital department [facility] CLIA# [id number] [address] [place] [address] documented in this encounter Visit Diagnoses Diagnosis Normal delivery documented in this encounter Care Teams Quebracho Tanner Relationship Specialty Start Date End Date Dennis Clifton DO [address] [place] [address] [place] [address] PCP - General Family Practice 07/28/21 03/26/24 documented as of this encounter
--- OUTSIDE RECORDS SUMMARY | 2025-05-22 08:26 | XMS_ITS | Encounter Summary ---
Author Organization [facility] Address [address] [place] [address] Care Team Providers Care Drapery And Upholstery Measurer Name Role Phone Dennis Clifton DO Primary Care Provider [phone] Encounter Details Date Type Department Care Team (Late st Contact Info) Description 12/06/2008 Outpatient Historical [facility] Rufus Starr MD [address] [place], [place] [id number] Headache Social History Tobacco Use Types Packs/Day Years Used Date Smoking Tobacco: Never Assessed Comments Unknown Sex and Gender Information Value Date Recorded Sex Assigned at Not on file Legal Sex Female 5:41 AM STERILIZATION TECH Gender Identity Not on file Sexual Orientation Not on file documented as of this encounter Plan of Treatment Not on file documented as of this encounter Visit Diagnoses Diagnosis Headache(784.0) Headache documented in this encounter Care Teams Drapery And Upholstery Measurer Relationship Specialty Start Date End Date Dennis Clifton DO [address] [place] [phone] PCP - General Family Practice 07/28/21 03/26/24 documented as of this encounter
--- OUTSIDE RECORDS SUMMARY | 2025-05-22 08:26 | XMS_ITS | Encounter Summary ---
Author Organization [facility] Address [address] [place] [address] Care Team Providers Care Manager Regulatory Name Role Phone Dennis Clifton DO Primary Care Provider [phone] Encounter Details Date Type Department Care Team (Late st Contact Info) Description 11/28/2008 Outpatient Historical [facility] [address] [place] [address] Jose De Jesus Arriola MD NO ADDRESS ON FILE Social History Tobacco Use Types Packs/Day Years Used Date Smoking Tobacco: Never Assessed Comments Unknown Sex and Gender Information Value Date Recorded Sex Assigned at Not on file Legal Sex Female 5:41 AM MEDICAL SUPERVISOR Gender Identity Not on file Sexual Orientation Not on file documented as of this encounter Plan of Treatment Not on file documented as of this encounter Visit Diagnoses Not on filedocumented in this encounter Care Teams Manager Regulatory Relationship Specialty Start Date End Date Dennis Clifton DO [facility]note 2[facility] [place] [address] PCP - General Family Practice 07/28/21 03/26/24 documented as of this encounter
--- OUTSIDE RECORDS SUMMARY | 2025-05-22 08:26 | XMS_ITS | Encounter Summary ---
Author Organization [facility] Address 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
--- OUTSIDE RECORDS SUMMARY | 2025-05-22 08:26 | XMS_ITS | Encounter Summary ---
Author Organization [facility] Address [address] [place] [address] Care Team Providers Care Tapeman Name Role Phone Dennis Clifton DO Primary Care Provider [phone] Encounter Details Date Type Department Care Team (Late st Contact Info) Description 03/11/2009 Outpatient [facility] [address] [facility] [place] [address] Binta Alves DO [address] [place] [address] Social History Tobacco Use Types Packs/Day Years Used Date Smoking Tobacco: Never Assessed Comments Unknown Sex and Gender Information Value Date Recorded Sex Assigned at Not on file Legal Sex Female 5:41 AM DUSTER TENDER Gender Identity Not on file Sexual Orientation Not on file documented as of this encounter Plan of Treatment Not on file documented as of this encounter Visit Diagnoses Not on filedocumented in this encounter Care Teams Tapeman Relationship Specialty Start Date End Date Dennis Clifton DO [address] [place] [phone] PCP - General Family Practice 07/28/21 03/26/24 documented as of this encounter
--- OUTSIDE RECORDS SUMMARY | 2025-05-22 08:26 | XMS_ITS | Encounter Summary ---
Author Organization [facility] Address 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
--- OUTSIDE RECORDS SUMMARY | 2025-05-22 08:26 | XMS_ITS | Encounter Summary ---
Author Organization [facility] Address [address] [place] [address] Care Team Providers Care Manager Intermediate Name Role Phone Dennis Clifton DO Primary Care Provider [phone] Encounter Details Date Type Department Care Team [...] on file Legal Sex Female 5:41 AM ICE CUTTER Gender Identity Not on file Sexual Orientation Not on file documented as of this encounter Plan of Treatment Not on file documented as of this encounter Visit Diagnoses Diagnosis Supervision of other normal documented in this encounter Care Teams Manager Intermediate Relationship Specialty Start Date End Date Dennis Clifton DO [facility] [place] [address] PCP - General Family Practice 07/28/21 03/26/24 documented as of this encounter
--- OUTSIDE RECORDS SUMMARY | 2025-05-22 08:26 | XMS_ITS | Encounter Summary ---
Author Organization [facility] Address [address] [place] [address] Care Team Providers Care Fish Hatchery Superintendent Name Role Phone Dennis Clifton DO Primary Care Provider [phone] Encounter Details Date Type Department Care Team (Late st Contact Info) Description 12/03/2008 Outpatient Historical [facility] [address] [place] [phone] Marc Lloyd MD NO ADDRESS ON FILE Social History Tobacco Use Types Packs/Day Years Used Date Smoking Tobacco: Never Assessed Comments Unknown Sex and Gender Information Value Date Recorded Sex Assigned at Not on file Legal Sex Female 5:41 AM DICE MAKER Gender Identity Not on file Sexual Orientation Not on file documented as of this encounter Plan of Treatment Not on file documented as of this encounter Visit Diagnoses Not on filedocumented in this encounter Care Teams Fish Hatchery Superintendent Relationship Specialty Start Date End Date Dennis Clifton DO [facility] [place] [address] PCP - General Family Practice 07/28/21 03/26/24 documented as of this encounter
--- OUTSIDE RECORDS SUMMARY | 2025-05-22 08:26 | XMS_ITS | Encounter Summary ---
Author Organization [employer] [facility] Address [address] [place] [address] Care Team Providers Care Inspector Fibrous Wallboard Name Role Phone Dennis Clifton DO Primary Care Provider [phone] Encounter Details Date Type Department Care Team (Late st Contact Info) Description 10/08/2008 Outpatient Historical [facility] Arriola, Jose De Jesus Art MD NO ADDRESS ON FILE State, Incidental Social History Tobacco Use Types Packs/Day Years Used Date Smoking Tobacco: Never Assessed Comments Unknown Sex and Gender Information Value Date Recorded Sex Assigned at Not on file Legal Sex Female 5:41 AM PUBLICATION SPECIALIST Gender Identity Not on file Sexual Orientation Not on file documented as of this encounter Plan of Treatment Not on file documented as of this encounter Procedures Procedure Name Priority Date/Time Associated Diagnosis Comments HIV DETECTION W/REFLX CONFIRMATION Routine 10/08/2008 11:40 AM PUBLICATION SPECIALIST HEPATITIS B SURFACE ANTIGEN Routine 10/08/2008 11:40 AM PUBLICATION SPECIALIST RUBELLA IGG Routine 10/08/2008 11:40 AM PUBLICATION SPECIALIST CBC WITH DIFFERENTIAL Routine 10/08/2008 11:40 AM PUBLICATION SPECIALIST RPR Routine 10/08/2008 11:40 AM PUBLICATION SPECIALIST OBSTETRIC PANEL Routine 10/08/2008 11:40 AM PUBLICATION SPECIALIST URINE CULTURE Routine 10/08/2008 11:40 AM PUBLICATION SPECIALIST TYPE AND SCREEN, Routine 10/08/2008 11:23 AM PUBLICATION SPECIALIST DRUGS OF ABUSE PANEL 7 Routine 10/08/2008 11:23 AM PUBLICATION SPECIALIST BLOOD BANK ANTIBODY SCREEN Routine 10/08/2008 11:23 AM PUBLICATION SPECIALIST documented in this encounter Results * OBSTETRIC PANEL (10/08/2008 11:40 AM PUBLICATION SPECIALIST) COMMENT See Additional Orderables [facility] Blood specimen (specimen) 10/08/2008 11:40 AM PUBLICATION SPECIALIST 10/08/2008 11:53 AM PUBLICATION SPECIALIST Jose De Jesus Arriola MD CHEMISTRY ORDERABLES Final Result Performing Organization Address [facility] de Phone Number INTERFACE SYSTEM Refer to clinic/hospital department [facility] CLIA# [id number] [address] [place] [address] * HIV ANTIBODY W/REFLX CONFIRMATION (10/08/2008 11:40 AM PUBLICATION SPECIALIST) HIV-1 AND 2 ABS NON-REACT RAFITA NON-REACT RAFITA [facility] Comment: A NON-REACTIVE HIV 1/2 ANTIBODY RESULT DOES NOT EXCLUDE HIV INFECTION SINCE THE TIME FRAME FOR SEROCONVERSION IS VARIABLE. IF ACUTE HIV INFECTION IS SUSPECTED, ANTIBODY RETESTING AND NUCLEIC ACID AMPLIFICATION (HIV DNA/RNA) TESTING IS RECOMMENDED. Lab test performed by: [facility] [address] [place] [address] BRYANT PAEZ MD Effective February 13, 2007, HIV 1/2 Antibody Screen with Reflexed Confirmation has replaced HIV-1 Antibody Screen. HIV-1 Antibody Screen is no longer offered due to lack of available kits from the hinging machine operator. Blood specimen (specimen) 10/08/2008 11:40 AM PUBLICATION SPECIALIST 10/08/2008 11:53 AM PUBLICATION SPECIALIST Jose De Jesus Arriola MD CHEMISTRY ORDERABLES Final Result Performing Organization Address [facility] de Phone Number INTERFACE SYSTEM Refer to clinic/hospital department [facility] CLIA# [id number] [address] [place], [place] [address] * (ABNORMAL) CBC WITH DIFFERENTIAL (10/08/2008 11:40 AM PUBLICATION SPECIALIST) HEMATOCRIT 38.0 35.5 - 44.0 % [facility] RDW-STDEV 42.3 37.1 - 48.7 fL [facility] RBC 4.49 3.90 - 4.90 M/uL [facility] MCHC 34.5 31.5 - 35.5 % [facility] MCV 84.6 82.0 - 99.0 fL [facility] PLATELETS 311 140 - 350 K/uL [facility] HEMOGLOBIN 13.1 11.8 - 14.8 g/dL [facility] RDW 13.8 11.5 - 14.5 % [facility] WBC 10.1(H) 4.0 - 9.8 K/uL [facility] MCH 29.2 27.2 - 32.6 pg [facility] MPV 9.8 9.3 - 12.4 fL [facility] BASOPHILS ABSOLUTE 0.02 0.00 - 0.20 K/uL [facility] MONOCYTES 5 3 - 13 % [facility] MONOCYTE ABSOLUTE 0.49 0.10 - 1.30 K/uL [facility] NEUTROPHILS 74(H) 45 - 70 % [facility] NEUTROPHIL ABSOLUTE 7.47(H) 1.90 - 7.00 K/uL [facility] EOSINOPHILS 1 0 - 7 % [facility] EOSINOPHIL ABSOLUTE 0.05 0.00 - 0.70 K/uL [facility] LYMPHOCYTES 21 16 - 45 % [facility] LYMPHOCYTE ABSOLUTE 2.08 0.70 - 4.50 K/uL [facility] BASOPHILS 0 0 - 2 % [facility] Blood specimen (specimen) 10/08/2008 11:40 AM PUBLICATION SPECIALIST 10/08/2008 11:55 AM PUBLICATION SPECIALIST Jose De Jesus Arriola MD HEMATOLOGY ORDERABLES Edit ed Performing Organization Address [facility] Phone Number INTERFACE SYSTEM Refer to clinic/hospital department [facility] CLIA# [id number] [address] [place] [address] * HEPATITIS B SURFACE ANTIGEN (10/08/2008 11:40 AM PUBLICATION SPECIALIST) HEPATITIS B SURFACE AG NON-REACTI VE NON-REACT RAFITA [facility] Comment: Lab test performed by: [facility] [id number] [place] [address] BRYANT PAEZ MD Blood specimen (specimen) 10/08/2008 11:40 AM PUBLICATION SPECIALIST 10/08/2008 11:53 AM PUBLICATION SPECIALIST Jose De Jesus Arriola MD CHEMISTRY ORDERABLES Final Result Performing Organization Address [facility] Phone Number INTERFACE SYSTEM Refer to clinic/hospital department [facility] CLIA# [id number] [address] [place] [address] * RUBELLA IGG (10/08/2008 11:40 AM PUBLICATION SPECIALIST) RUBELLA IGG 1.18 EIA Value [facility] Comment: EIA VALUE EXPLANATION OF TEST RESULTS --------- <0.91 NEGATIVE - NO RUBELLA IGG ANTIBODY DETECTED. 0.91 - 1.09 EQUIVOCAL > OR = 1.10 POSITIVE - RUBELLA IGG ANTIBODY DETECTED. THE PRESENCE OF RUBELLA IGG ANTIBODY SUGGESTS IMMUNIZATION OR PAST OR CURRENT INFECTION WITH RUBELLA VIRUS. Lab test performed by: [facility] [id number] [address] [facility] [employer] [place] [address] BRYANT PAEZ MD Blood specimen (specimen) 10/08/2008 11:40 AM PUBLICATION SPECIALIST 10/08/2008 11:53 AM PUBLICATION SPECIALIST Jose De Jesus Arriola MD CHEMISTRY ORDERABLES Final Result Performing Organization Address [facility] Phone Number INTERFACE SYSTEM Refer to clinic/hospital department [facility] CLIA# [id number] [address] [place] [address] * RPR (10/08/2008 11:40 AM PUBLICATION SPECIALIST) RPR NON-REACTI VE NON-REACT RAFITA [facility] Comment: Lab test performed by: [facility] [id number] [facility] [employer] [place] [address] BRYANT PAEZ MD Blood specimen (specimen) 10/08/2008 11:40 AM PUBLICATION SPECIALIST 10/08/2008 11:53 AM PUBLICATION SPECIALIST Jose De Jesus Arriola MD CHEMISTRY ORDERABLES Final Result Performing Organization Address [facility] Phone Number INTERFACE SYSTEM Refer to clinic/hospital department [facility] CLIA# [id number] [address] [place] [address] * URINE CULTURE (10/08/2008 11:40 AM PUBLICATION SPECIALIST) PRELIMINARY REPORT Pending [facility] FINAL REPORT No growth 24 hours [facility] 10/08/2008 11:4 0 AM PUBLICATION SPECIALIST 10/08/2008 12:55 PM PUBLICATION SPECIALIST us Jose De Jesus Arriola MD MICROBIOLOGY - GENERAL ORD ERABLES Final Result Performing Organization Address City/[facility] de Phone Number INTERFACE SYSTEM Refer to clinic/hospital department [facility] CLIA# [id number] [address] [place] [address] * ANTIBODY SCREEN (10/08/2008 11:23 AM PUBLICATION SPECIALIST) ANTIBODY SCREEN Negative [facility] 10/08/2008 11:2 3 AM PUBLICATION SPECIALIST Jose De Jesus Arriola MD BLOOD BANK ORDERABLES Cami l Result Performing Organization Address [facility] de Phone Number INTERFACE SYSTEM Refer to clinic/hospital department [facility] CLIA# [id number] [address] [place] [address] * TYPE AND SCREEN, (10/08/2008 11:23 AM PUBLICATION SPECIALIST) HISTORY CHECK No Historical ABO/Rh [facility] ABO/RH TYPE A Positive [facility] Blood specimen (specimen) 10/08/2008 11:23 AM PUBLICATION SPECIALIST Jose De Jesus Arriola MD BLOOD BANK ORDERABLES Edit ed Performing Organization Address [facility] Phone Number INTERFACE SYSTEM Refer to clinic/hospital department [facility] CLIA# [id number] [address] [place] [address] * DRUGS OF ABUSE PANEL 7 (10/08/2008 11:23 AM PUBLICATION SPECIALIST) COMMENT, TOXICOLOGY See Separate Comment [facility] Comment: Urine sample was not handled [...] drugs of abuse are available on the [facility] Intranet at: [email or web address] Select: Lab Policies & Procedures Select: Drugs of Abuse-[facility] To inquire about any potential cross-reactivity of a specific drug not listed at this site, please contact the Chemistry Lab at . AMPHETAMINE QUAL, URINE Negative Negative [facility] BARBITURATE QUAL, URINE Negative Negative [facility] BENZODIAZEPINE QUAL, URINE Negative Negative [facility] CANNABINOIDS QUAL, URINE Negative Negative [facility] COCAINE QUAL URINE Negative Negative [facility] OPIATE QUAL, URINE Negative Negative [facility] PCP QUAL, URINE Negative Negative [facility] Urine specimen (specimen) 10/08/2008 11:23 AM PUBLICATION SPECIALIST 10/08/2008 11:52 AM PUBLICATION SPECIALIST us Jose De Jesus Arriola MD URINE ORDERABLES Edited INTERFACE SYSTEM Refer to clinic/hospital department [facility] CLIA# [id number] [address] [place] [address] documented in this encounter Visit Diagnoses Diagnosis state, incidental documented in this encounter Care Teams Inspector Fibrous Wallboard Relationship Specialty Start Date End Date Dennis Clifton DO [address] [facility] [place] [address] PCP - General Family Practice 07/28/21 03/26/24 documented as of this encounter
--- OUTSIDE RECORDS SUMMARY | 2025-05-22 08:26 | XMS_ITS | Encounter Summary ---
Author Organization [employer] Address [address] [place] [address] Care Team Providers Care Supervisory Cbp Officer Name Role Phone Dennis Clifton DO Primary Care Provider Encounter Details Date Type Department Care Team (Late st Contact Info) Description 03/05/2009 Outpatient Historical [facility] Natacha Nelson MD [address] [place] [address] Dizziness and Giddiness Social History Tobacco Use Types Packs/Day Years Used Date Smoking Tobacco: Never Assessed Comments Unknown Sex and Gender Information Value Date Recorded Sex Assigned at Not on file Legal Sex Female 5:41 AM SPOUT TENDER Gender Identity Not on file Sexual Orientation Not on file documented as of this encounter Plan of Treatment Not on file documented as of this encounter Visit Diagnoses Diagnosis Dizziness and giddiness documented in this encounter Care Teams Supervisory Cbp Officer Relationship Specialty Start Date End Date Dennis Clifton DO [address] [place] [phone] PCP - General Family Practice 07/28/21 03/26/24 documented as of this encounter
--- OUTSIDE RECORDS SUMMARY | 2025-05-22 08:26 | XMS_ITS | Encounter Summary ---
Author Organization [facility] Address [address] [place] [address] Care Team Providers Care Scientific Photographer Name Role Phone Dennis Clifton DO Primary Care Provider Encounter Details Date Type Department Care Team (Late st Contact Info) Description 01/24/2009 Outpatient Historical [facility] [address] [place] [phone] Marc Lloyd MD NO ADDRESS ON FILE Social History Tobacco Use Types Packs/Day Years Used Date Smoking Tobacco: Never Assessed Comments Unknown Sex and Gender Information Value Date Recorded Sex Assigned at Not on file Legal Sex Female 5:41 AM ADVANCED NURSING PROFESSOR Gender Identity Not on file Sexual Orientation Not on file documented as of this encounter Plan of Treatment Not on file documented as of this encounter Visit Diagnoses Not on filedocumented in this encounter Care Teams Scientific Photographer Relationship Specialty Start Date End Date Dennis Clifton DO [facility] [place] [address] PCP - General Family Practice 07/28/21 03/26/24 documented as of this encounter
--- OUTSIDE RECORDS SUMMARY | 2025-05-22 08:26 | XMS_ITS | Encounter Summary ---
Author Organization [email or web address] Address [address] [place] [address] Care Team Providers Care String Studies Director Name Role Phone Dennis Clifton DO Primary Care Provider [phone] Encounter Details Date Type Department Care Team (Late st Contact Info) Description 11/06/2008 Outpatient Historical [facility] Jose De Jesus Arriola MD NO ADDRESS ON FILE Other Specified Complication, Antepartum Social History Tobacco Use Types Packs/Day Years Used Date Smoking Tobacco: Never Assessed Comments Unknown Sex and Gender Information Value Date Recorded Sex Assigned at Not on file Legal Sex Female 5:41 AM STUDENT SERVICES COUNSELOR Gender Identity Not on file Sexual Orientation Not on file documented as of this encounter Plan of Treatment Not on file documented as of this encounter Procedures Procedure Name Priority Date/Time Associated Diagnosis Comments US OB LTD 1 OR MORE FETUSES Pending Discharge 11/07/2008 10:46 AM STUDENT SERVICES COUNSELOR documented in this encounter Results * US OB LTD 1 OR MORE FETUSES (11/07/2008 10:46 AM STUDENT SERVICES COUNSELOR) Anatomical Region Laterality Modality Pelvis Other Narrative 11/07/2008 10:46 AM STUDENT SERVICES COUNSELOR FINAL - Order Information Only Procedure Note Jose Graham, RN - 09/30/2015 FINAL - Order Information Only us Stl Other US ORDERABLES Final Result documented in this encounter Visit Diagnoses Diagnosis Other specified complication, antepartum(646.83) Other specified complication, antepartum documented in this encounter Care Teams String Studies Director Relationship Specialty Start Date End Date Dennis Clifton DO [facility] [place] [address] PCP - General Family Practice 07/28/21 03/26/24 documented as of this encounter
--- OUTSIDE RECORDS SUMMARY | 2025-05-22 08:26 | XMS_ITS | Encounter Summary ---
Author Organization [facility] Address [address] [place] [address] Care Team Providers Care Roller Mill Operator Name Role Phone Dennis Clifton DO Primary Care Provider [phone] Encounter Details Date Type Department Care Team (Late st Contact Info) Description 10/31/2008 Outpatient Historical [facility] [address] [place] [address] Jose De Jesus Arriola MD NO ADDRESS ON FILE Social History Tobacco Use Types Packs/Day Years Used Date Smoking Tobacco: Never Assessed Comments Unknown Sex and Gender Information Value Date Recorded Sex Assigned at Not on file Legal Sex Female 5:41 AM DIE CAST ENGINEER Gender Identity Not on file Sexual Orientation Not on file documented as of this encounter Plan of Treatment Not on file documented as of this encounter Visit Diagnoses Not on filedocumented in this encounter Care Teams Roller Mill Operator Relationship Specialty Start Date End Date Dennis Clifton DO [address] [place] [phone] PCP - General Family Practice 07/28/21 03/26/24 documented as of this encounter
--- OUTSIDE RECORDS SUMMARY | 2025-05-22 08:26 | XMS_ITS | Encounter Summary ---
Author Organization [facility] Address [address] [place] [address] Care Team Providers Care Chief Minister Name Role Phone Dennis Clifton DO Primary Care Provider [phone] Encounter Details Date Type Department Care Team (Late st Contact Info) Description 01/23/2009 Outpatient Historical [facility] [address] [place] [address] Jose De Jesus Arriola MD NO ADDRESS ON FILE Social History Tobacco Use Types Packs/Day Years Used Date Smoking Tobacco: Never Assessed Comments Unknown Sex and Gender Information Value Date Recorded Sex Assigned at Not on file Legal Sex Female 5:41 AM ORDNANCE TECHNICIAN Gender Identity Not on file Sexual Orientation Not on file documented as of this encounter Plan of Treatment Not on file documented as of this encounter Visit Diagnoses Not on filedocumented in this encounter Care Teams Chief Minister Relationship Specialty Start Date End Date Dennis Clifton DO [address] [place] [phone] PCP - General Family Practice 07/28/21 03/26/24 documented as of this encounter
--- OUTSIDE RECORDS SUMMARY | 2025-05-22 08:26 | XMS_ITS | Encounter Summary ---
Author Organization [employer] Address [address] [place] [address] Care Team Providers Care Pit And Auxiliaries Supervisor Name Role Phone Dennis Clifton DO [...] on file Legal Sex Female 5:41 AM BATH MIXER Gender Identity Not on file Sexual Orientation Not on file documented as of this encounter Plan of Treatment Not on file documented as of this encounter Visit Diagnoses Diagnosis Supervision of other normal documented in this encounter Care Teams Pit And Auxiliaries Supervisor Relationship Specialty Start Date End Date Dennis Clifton DO [facility] [place] [address] PCP - General Family Practice 07/28/21 03/26/24 documented as of this encounter
--- OUTSIDE RECORDS SUMMARY | 2025-05-22 08:26 | XMS_ITS | Encounter Summary ---
Author Organization [facility] Address [address] [place] [address] Care Team Providers Care Pneumatic Tool Repairer Name Role Phone Dennis Clifton DO Primary Care Provider [phone] Encounter Details Date Type Department Care Team (Late st Contact Info) Description 10/08/2008 [facility] [address] [place] [address] Oneal Cintron MD [id number] [place] [address] Social History Tobacco Use Types Packs/Day Years Used Date Smoking Tobacco: Never Assessed Comments Unknown Sex and Gender Information Value Date Recorded Sex Assigned at Not on file Legal Sex Female 5:41 AM HOME PERFORMANCE CONSULTANT Gender Identity Not on file Sexual Orientation Not on file documented as of this encounter Plan of Treatment Not on file documented as of this encounter Visit Diagnoses Not on filedocumented in this encounter Care Teams Pneumatic Tool Repairer Relationship Specialty Start Date End Date Dennis Clifton DO [address] [place] [phone] PCP - General Family Practice 07/28/21 03/26/24 documented as of this encounter
--- OUTSIDE RECORDS SUMMARY | 2025-05-22 08:26 | XMS_ITS | Encounter Summary ---
Author Organization [facility] Address [address] [place] [address] Care Team Providers Care Family Partner Name Role Phone Dennis Clifton DO Primary Care Provider [phone] Encounter Details Date Type Department Care Team (Late st Contact Info) Description 12/27/2008 Outpatient Historical [facility] [address] [place] [address] Ilda Fenton DO [address] [place], [place] [phone] Social History Tobacco Use Types Packs/Day Years Used Date Smoking Tobacco: Never Assessed Comments Unknown Sex and Gender Information Value Date Recorded Sex Assigned at Not on file Legal Sex Female 5:41 AM WATERWORKS SUPERVISOR Gender Identity Not on file Sexual Orientation Not on file documented as of this encounter Plan of Treatment Not on file documented as of this encounter Visit Diagnoses Not on filedocumented in this encounter Care Teams Family Partner Relationship Specialty Start Date End Date Dennis Clifton DO [facility] [place] [address] PCP - General Family Practice 07/28/21 03/26/24 documented as of this encounter
--- OUTSIDE RECORDS SUMMARY | 2025-05-22 08:26 | XMS_ITS | Encounter Summary ---
Author Organization [facility] Address [address] [place] [address] Care Team Providers Care Sales Engagement Executive Name Role Phone Dennis Clifton DO Primary Care Provider [phone] Encounter Details Date Type Department Care Team (Late st Contact Info) Description 01/23/2009 Outpatient Historical [facility] Arriola, Jose De Jesus Art MD NO ADDRESS ON FILE Ilda Fenton DO [address] [place] [address] State, Incidental Social History Tobacco Use Types Packs/Day Years Used Date Smoking Tobacco: Never Assessed Comments Unknown Sex and Gender Information Value Date Recorded Sex Assigned at Not on file Legal Sex Female 5:41 AM GLAZE MIXER Gender Identity Not on file Sexual [...] HR OBSTETRIC 98 65 - 139 mg/dL [facility] Blood specimen (specimen) 01/23/2009 10:21 AM CDT 01/23/2009 10:33 AM CDT Jose De Jesus Arriola MD CHEMISTRY ORDERABLES Final Result Performing Organization Address City/[facility] de Phone Number INTERFACE SYSTEM Refer to clinic/hospital department [facility] CLIA# [id number] [address] [place] [address] * (ABNORMAL) HEMOGLOBIN AND HEMATOCRIT (01/23/2009 10:21 AM CDT) HEMOGLOBIN 10.8(L) 11.8 - 14.8 g/dL [facility] HEMATOCRIT 32.8(L) 35.5 - 44.0 % [facility] Blood specimen (specimen) 01/23/2009 10:21 AM CDT 01/23/2009 10:32 AM CDT Jose De Jesus Arriola MD HEMATOLOGY ORDERABLES Cami l Result Performing Organization Address [facility] de Phone Number INTERFACE SYSTEM Refer to clinic/hospital department [facility] CLIA# [id number] [address] [place] [address] documented in this encounter Visit Diagnoses Diagnosis state, incidental documented in this encounter Care Teams Sales Engagement Executive Relationship Specialty Start Date End Date Dennis Clifton DO [address] [place] [address] [place] [address] PCP - General Family Practice 07/28/21 03/26/24 documented as of this encounter
--- OUTSIDE RECORDS SUMMARY | 2025-05-22 08:26 | XMS_ITS | Encounter Summary ---
Author Organization [facility] Address [address] [place] [address] Care Team Providers Care Finance Professional Name Role Phone Clifton, Dennis Primary Care Provider [phone] Encounter Details Date Type Department Care Team (Late st Contact Info) Description 10/31/2008 Outpatient Historical [facility] Jose De Jesus Arriola MD NO ADDRESS ON FILE State, Incidental Social History Tobacco Use Types Packs/Day Years Used Date Smoking Tobacco: Never Assessed Comments Unknown Sex and Gender Information Value Date Recorded Sex Assigned at Not on file Legal Sex Female 5:41 AM MARINE METEOROLOGIST Gender Identity Not on file Sexual Orientation Not on file documented as of this encounter Plan of Treatment Not on file documented as of this encounter Procedures Procedure Name Priority Date/Time Associated Diagnosis Comments CERV/VAG CYTOPATH, THIN PREP IMAGR RFLX HPV Routine 10/31/2008 4:22 PM MARINE METEOROLOGIST documented in this encounter Results * (ABNORMAL) CERV/VAG CYTOPATH, THIN PREP ECG TECHNICIAN W/RFLX (10/31/2008 4:22 PM MARINE METEOROLOGIST) LAST MENSTRUAL PERIOD 07/13/08 [facility] GENERAL CATEGORIZATION : EPITHELIAL CELL ABNORMALITY(A) [facility] CYTOTECHNOLOGI ST: TMK, CT(ASCP) [facility] REPORT STATUS FINAL [facility] Information not provided [facility] PREV PAP: Information not provided [facility] PATHOLOGIST Andrés Laws M.D., Board Certified in Anatomic Pathology and Cytopathology. (electronic signature) [facility] Comment: Lab test performed by: [employer] [address] [address] BRYANT PAEZ MD PAP INTERP Low Grade Squamous Intraepithelial Lesion (LSIL)(A) [facility] CLINICAL INFORMATION [facility] Contact Lens Technician Pap Comment This Pap test has been evaluated with computer assisted technology. Based on the cytology result, reflex High Risk HPV DNA testing was not performed. Suggest clinical correlation and follow-up as clinically appropriate [facility] ADEQUACY: Satisfactory for evaluation. Endocervical/trans formation zone component present. [facility] PREV BX: Information not provided [facility] Specimen from uterine cervix (specimen) 10/31/2008 4:22 PM MARINE METEOROLOGIST 10/31/2008 4:42 PM MARINE METEOROLOGIST us Jose De Jesus Arriola MD PATHOLOGY/CYTOLOGY ORDERAB LES Final Result INTERFACE SYSTEM Refer to clinic/hospital department [facility] CLIA# [id number] [address] [facility] [address] documented in this encounter Visit Diagnoses Diagnosis state, incidental documented in this encounter Care Teams Finance Professional Relationship Specialty Start Date End Date Dennis Clifton DO [address] [place] [phone] PCP - General Family Practice 07/28/21 03/26/24 documented as of this encounter
--- OUTSIDE RECORDS SUMMARY | 2025-05-22 08:26 | XMS_ITS | Encounter Summary ---
Author Organization [facility] Address [address] [place] [address] Care Team Providers Care Software Quality Tester Name Role Phone Dennis Clifton DO Primary Care Provider [phone] Encounter Details Date Type Department Care Team (Late st Contact Info) Description 10/31/2008 Outpatient Historical [facility] [address] [facility] [place] [address] Rosamaria Iyer MD [address] [place], [place] [id number] Social History Tobacco Use Types Packs/Day Years Used Date Smoking Tobacco: Never Assessed Comments Unknown Sex and Gender Information Value Date Recorded Sex Assigned at Not on file Legal Sex Female 5:41 AM MEDICAL DERMATOLOGIST Gender Identity Not on file Sexual Orientation Not on file documented as of this encounter Plan of Treatment Not on file documented as of this encounter Visit Diagnoses Not on filedocumented in this encounter Care Teams Software Quality Tester Relationship Specialty Start Date End Date Dennis Clifton DO [address] [place] [phone] PCP - General Family Practice 07/28/21 03/26/24 documented as of this encounter
--- OUTSIDE RECORDS SUMMARY | 2025-05-22 08:26 | XMS_ITS | Encounter Summary ---
Author Organization [facility] Address [address] [place] [address] Care Team Providers Care Paint Preparer Name Role Phone Dennis Clifton DO Primary Care Provider [phone] Encounter Details Date Type Department Care Team (Late st Contact Info) Description 03/05/2009 Outpatient Historical [facility] [address] [place] [address] Natacha Nelson MD [address] [place] [address] Social History Tobacco Use Types Packs/Day Years Used Date Smoking Tobacco: Never Assessed Comments Unknown Sex and Gender Information Value Date Recorded Sex Assigned at Not on file Legal Sex Female 5:41 AM GOLD WHEEL BLOCKER AND POLISHER Gender Identity Not on file Sexual Orientation Not on file documented as of this encounter Plan of Treatment Not on file documented as of this encounter Visit Diagnoses Not on filedocumented in this encounter Care Teams Paint Preparer Relationship Specialty Start Date End Date Dennis Clifton DO [address] [place] [phone] PCP - General Family Practice 07/28/21 03/26/24 documented as of this encounter
--- OUTSIDE RECORDS SUMMARY | 2025-05-22 08:26 | XMS_ITS | Encounter Summary ---
Author Organization [employer] Address [address] [place] [address] Care Team Providers Care Director Digital Sales Name Role Phone Dennis Clifton DO Primary Care Provider [phone] Encounter Details Date Type Department Care Team (Late st Contact Info) Description 03/17/2009 Outpatient Historical [facility] Cholo Escobar MD [address] [place] [address] [place] [id number] State, Incidental Social History Tobacco Use Types Packs/Day Years Used Date Smoking Tobacco: Never Assessed Comments Unknown Sex and Gender Information Value Date Recorded Sex Assigned at Not on file Legal Sex Female 5:41 AM CHICKEN SEXER Gender Identity Not on file Sexual Orientation Not on file documented as of this encounter Plan of Treatment Not on file documented as of this encounter Visit Diagnoses Diagnosis state, incidental documented in this encounter Care Teams Director Digital Sales Relationship Specialty Start Date End Date Dennis Clifton DO [address] [place] [phone] PCP - General Family Practice 07/28/21 03/26/24 documented as of this encounter
--- OUTSIDE RECORDS SUMMARY | 2025-05-22 08:26 | XMS_ITS | Encounter Summary ---
Author Organization [facility] Address [address] [place] [address] Care Team Providers Care Military Professional Name Role Phone Dennis Clifton DO Primary Care Provider [phone] Encounter Details Date Type Department Care Team (Late st Contact Info) Description 02/27/2009 Outpatient Historical [facility] [address] [place] [address] Luanne Montiel MD NO ADDRESS ON FILE Social History Tobacco Use Types Packs/Day Years Used Date Smoking Tobacco: Never Assessed Comments Unknown Sex and Gender Information Value Date Recorded Sex Assigned at Not on file Legal Sex Female 5:41 AM BUN PANNER Gender Identity Not on file Sexual Orientation Not on file documented as of this encounter Plan of Treatment Not on file documented as of this encounter Visit Diagnoses Not on filedocumented in this encounter Care Teams Military Professional Relationship Specialty Start Date End Date Dennis Clifton DO [facility] [place] [address] PCP - General Family Practice 07/28/21 03/26/24 documented as of this encounter
--- OUTSIDE RECORDS SUMMARY | 2025-05-22 08:26 | XMS_ITS | Encounter Summary ---
Author Organization [employer] Address [address] [place] [address] Care Team Providers Care News Editor Name Role Phone Dennis Clifton DO Primary Care Provider [phone] Encounter Details Date Type Department Care Team (Late st Contact Info) Description 03/27/2009 Outpatient Historical [facility] Jose De Jesus Arriola MD NO ADDRESS ON FILE State, Incidental Social History Tobacco Use Types Packs/Day Years Used Date Smoking Tobacco: Never Assessed Comments Unknown Sex and Gender Information Value Date Recorded Sex Assigned at Not on file Legal Sex Female 5:41 AM FOREIGN LANGUAGE INSTRUCTOR Gender Identity Not on file Sexual Orientation Not on file documented as of this encounter Plan of Treatment Not on file documented as of this encounter Visit Diagnoses Diagnosis state, incidental documented in this encounter Care Teams News Editor Relationship Specialty Start Date End Date Dennis Clifton DO [facility] [place] [address] PCP - General Family Practice 07/28/21 03/26/24 documented as of this encounter
--- OUTSIDE RECORDS SUMMARY | 2025-05-22 08:26 | XMS_ITS | Encounter Summary ---
Author Organization [facility] Address [address] [place] [address] Care Team Providers Care Drag Out Worker Name Role Phone Dennis Clifton DO Primary Care Provider [phone] Encounter Details Date Type Department Care Team (Late st Contact Info) Description 12/02/2008 Outpatient Historical [facility] Starr, Rufus Orta MD [address] [place] [address] Headache Social History Tobacco Use Types Packs/Day Years Used Date Smoking Tobacco: Never Assessed Comments Unknown Sex and Gender Information Value Date Recorded Sex Assigned at Not on file Legal Sex Female 5:41 AM IT ADMIN Gender Identity Not on file Sexual Orientation [...] 6.3 - 8.6 g/dL [facility] POTASSIUM 3.8 3.5 - 4.9 mmol/L [facility] GLUCOSE 81 65 - 99 mg/dL [facility] AST 13 12 - 32 U/L [facility] BUN 6 6 - 20 mg/dL [facility] CALCIUM 9.4 8.6 - 10.2 mg/dL [facility] CHLORIDE 101 96 - 108 mmol/L [facility] ALBUMIN 4.0 3.4 - 4.8 g/dL [facility] CREATININE 0.55 0.51 - 0.95 mg/dL [facility] SODIUM 136 135 - 145 mmol/L [facility] ALT 16 0 - 31 U/L [facility] ALKALINE PHOSPHATASE 64 35 - 104 U/L [facility] BILIRUBIN TOTAL 0.4 0.2 - 1.0 mg/dL [facility] CO2 26 22 - 30 mmol/L [facility] GFR, >60 >=60 mL/min/1.7 sq meter [facility] GFR >60 >=60 mL/min/1.7 sq meter [facility] Comment: Modification of Diet in Renal Disease (MDRD) study formula. Estimated GFR rate interpretative information for both Americans and non- Americans is available on the [facility] Intranet at: [email or web address] Select: Lab Policies and Procedures Select: Reference Ranges - GFR Blood specimen (specimen) 12/02/2008 10:34 AM CDT 12/02/2008 11:26 AM CDT us Rufus Starr MD CHEMISTRY ORDERABLES Edited INTERFACE SYSTEM Refer to clinic/hospital department [facility] CLIA# [id number] [address] [place] [address] * TSH REFLEXIVE (12/02/2008 10:34 AM CDT) TSH 1.97 0.27 - 4.20 uU/mL [facility] Blood specimen (specimen) 12/02/2008 10:34 AM CDT 12/02/2008 11:26 AM CDT Rufus Starr MD CHEMISTRY ORDERABLES Final Resul t Performing Organization Address City/State/[facility] Co de Phone Number INTERFACE SYSTEM Refer to clinic/hospital department [facility] CLIA# [id number] [address] [place] [address] * (ABNORMAL) CBC WITHOUT DIFFERENTIAL (12/02/2008 10:34 AM CDT) Pathologist [facility] MCV 86.2 82.0 - 99.0 fL [facility] PLATELETS 320 140 - 350 K/uL [facility] HEMOGLOBIN 12.3 11.8 - 14.8 g/dL [facility] RDW 14.0 11.5 - 14.5 % [facility] WBC 10.6(H) 4.0 - 9.8 K/uL [facility] MCH 28.8 27.2 - 32.6 pg [facility] MPV 9.9 9.3 - 12.4 fL [facility] HEMATOCRIT 36.8 35.5 - 44.0 % [facility] RDW-STDEV 43.4 37.1 - 48.7 fL [facility] RBC 4.27 3.90 - 4.90 M/uL [facility] MCHC 33.4 31.5 - 35.5 % [facility] Blood specimen (specimen) 12/02/2008 10:34 AM CDT 12/02/2008 11:14 AM CDT Rufus Starr MD HEMATOLOGY ORDERABLES Final Resu lt INTERFACE SYSTEM Refer to clinic/hospital department [facility] CLIA# [id number] [address] [place] [address] documented in this encounter Visit Diagnoses Diagnosis Headache(784.0) Headache documented in this encounter Care Teams Drag Out Worker Relationship Specialty Start Date End Date Dennis Clifton DO [facility] [place] [address] PCP - General Family Practice 07/28/21 03/26/24 documented as of this encounter
--- OUTSIDE RECORDS SUMMARY | 2025-05-22 08:26 | XMS_ITS | Encounter Summary ---
Author Organization [facility] Address [address] [place] [address] Care Team Providers Care Policy Analyst Name Role Phone Dennis Clifton DO Primary Care Provider [phone] Encounter Details Date Type Department Care Team (Late st Contact Info) Description 12/26/2008 Outpatient Historical [facility] [address] [place] [address] Jose De Jesus Arriola MD NO ADDRESS ON FILE Social History Tobacco Use Types Packs/Day Years Used Date Smoking Tobacco: Never Assessed Comments Unknown Sex and Gender Information Value Date Recorded Sex Assigned at Not on file Legal Sex Female 5:41 AM STUDY DIRECTOR Gender Identity Not on file Sexual Orientation Not on file documented as of this encounter Plan of Treatment Not on file documented as of this encounter Visit Diagnoses Not on filedocumented in this encounter Care Teams Policy Analyst Relationship Specialty Start Date End Date Dennis Clifton DO [address] [place] [phone] PCP - General Family Practice 07/28/21 03/26/24 documented as of this encounter
--- OUTSIDE RECORDS SUMMARY | 2025-05-22 08:26 | XMS_ITS | Encounter Summary ---
Author Organization [employer] Address [address] [place] [address] Care Team Providers Care Cover Creaser Name Role Phone Dennis Clifton DO Primary Care Provider [phone] Encounter Details Date Type Department Care Team [...] on file Legal Sex Female 5:41 AM HELMET HAT SWEATBAND PUNCHER Gender Identity Not on file Sexual Orientation Not on file documented as of this encounter Plan of Treatment Not on file documented as of this encounter Visit Diagnoses Diagnosis Supervision of other normal documented in this encounter Care Teams Cover Creaser Relationship Specialty Start Date End Date Dennis Clifton DO [facility] [place] [address] PCP - General Family Practice 07/28/21 03/26/24 documented as of this encounter
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
--- OUTSIDE RECORDS SUMMARY | 2025-05-22 08:26 | XMS_ITS | Encounter Summary ---
Author Organization [email or web address] Address [address] [place] [address] Care Team Providers Care Graphics Intern Name Role Phone Dennis Clifton DO Primary Care Provider [phone] Encounter Details Date Type Department Care Team (Late st Contact Info) Description 12/18/2008 Outpatient Historical [facility] Jose De Jesus Arriola MD NO ADDRESS ON FILE Other Specified Complication, Antepartum Social History Tobacco Use Types Packs/Day Years Used Date Smoking Tobacco: Never Assessed Comments Unknown Sex and Gender Information Value Date Recorded Sex Assigned at Not on file Legal Sex Female 5:41 AM 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
--- OUTSIDE RECORDS SUMMARY | 2025-05-22 08:26 | XMS_ITS | Encounter Summary ---
Author Organization [facility] Address [address] [place] [address] Care Team Providers Care Wafer Abrading Machine Tender Name Role Phone Dennis Clifton DO Primary Care Provider [phone] Encounter Details Date Type Department Care Team (Late st Contact Info) Description 12/02/2008 Outpatient Historical [facility] [address] [place] [address] Rufus Starr MD [address] [place], [place] [id number] Social History Tobacco Use Types Packs/Day Years Used Date Smoking Tobacco: Never Assessed Comments Unknown Sex and Gender Information Value Date Recorded Sex Assigned at Not on file Legal Sex Female 5:41 AM WOOD GLUER Gender Identity Not on file Sexual Orientation Not on file documented as of this encounter Plan of Treatment Not on file documented as of this encounter Visit Diagnoses Not on filedocumented in this encounter Care Teams Wafer Abrading Machine Tender Relationship Specialty Start Date End Date Dennis Clifton DO [address] [place] [phone] PCP - General Family Practice 07/28/21 03/26/24 documented as of this encounter
--- OUTSIDE RECORDS SUMMARY | 2025-05-22 08:26 | XMS_ITS | Encounter Summary ---
Author Organization [email or web address] Address [address] [place] [address] Care Team Providers Care Job Analysis Manager Name Role Phone Dennis Clifton DO Primary Care Provider [phone] Encounter Details Date Type Department Care Team (Late st Contact Info) Description 12/02/2008 Outpatient Historical [facility] Rufus Starr MD [address] [place], [place] [id number] Headache Social History Tobacco Use Types Packs/Day Years Used Date Smoking Tobacco: Never Assessed Comments Unknown Sex and Gender Information Value Date Recorded Sex Assigned at Not on file Legal Sex Female 5:41 AM PRECISION AGRICULTURE SPECIALIST Gender Identity Not on file Sexual Orientation Not on file documented as of this encounter Plan of Treatment Not on file documented as of this encounter Visit Diagnoses Diagnosis Headache(784.0) Headache documented in this encounter Care Teams Job Analysis Manager Relationship Specialty Start Date End Date Dennis Clifton DO [address] [place] [phone] PCP - General Family Practice 07/28/21 03/26/24 documented as of this encounter
--- OUTSIDE RECORDS SUMMARY | 2025-05-22 08:26 | XMS_ITS | Encounter Summary ---
Author Organization [employer] Address [address] [place] [address] Care Team Providers Care International Representative Name Role Phone Dennis Clifton DO Primary Care Provider [phone] Encounter Details Date Type Department Care Team [...] file Legal Sex Female 5:41 AM MANAGER ER Gender Identity Not on file Sexual Orientation Not on file documented as of this encounter Plan of Treatment Not on file documented as of this encounter Visit Diagnoses Diagnosis Supervision of other normal documented in this encounter Care Teams International Representative Relationship Specialty Start Date End Date Dennis Clifton DO [facility] [place] [address] PCP - General Family Practice 07/28/21 03/26/24 documented as of this encounter
--- OUTSIDE RECORDS SUMMARY | 2025-05-22 08:26 | XMS_ITS | Encounter Summary ---
Author Organization [employer] Address [address] [place] [address] Care Team Providers Care Proctologist Name Role Phone Dennis Clifton DO Primary Care Provider [phone] Encounter Details Date Type Department Care Team (Late st Contact Info) Description 04/10/2009 Outpatient Historical [facility] Jose De Jesus Arriola MD NO ADDRESS ON FILE State, Incidental Social History Tobacco Use Types Packs/Day Years Used Date Smoking Tobacco: Never Assessed Comments Unknown Sex and Gender Information Value Date Recorded Sex Assigned at Not on file Legal Sex Female 5:41 AM SR. PRICING ANALYST Gender Identity Not on file Sexual Orientation Not on file documented as of this encounter Plan of Treatment Not on file documented as of this encounter Visit Diagnoses Diagnosis state, incidental documented in this encounter Care Teams Proctologist Relationship Specialty Start Date End Date Dennis Clifton DO [facility] [place] [address] PCP - General Family Practice 07/28/21 03/26/24 documented as of this encounter
--- OUTSIDE RECORDS SUMMARY | 2025-05-22 08:26 | XMS_ITS | Clinical Summary ---
Author Organization [facility] [employer] Address [address] [place] [address] Care Team Providers Care Trimmer Sawyer Name Role Phone Martin Hurtado MD Primary Care Provider Unavailable Source Comments [facility] [employer],non-owned Affiliates and Associated Physician Practices is amultiple site organization consisting of ambulatory clinics and hospital sitesin [place], [place], [place] and [place]. This disclosure is being madepursuant to the Care Everywhere program and may not contain all information available regarding this patient. Last updated 18.[facility] [employer] Allergies Active Allergy Reactions Criticality Noted Date [...] totechnologist Comment . [facility] INSURANCE BILL Note [facility] INSURANCE BILL Comment: The Pap smear is [...] use of an image guided system. Note [facility] INSURANCE BILL Comment: The HPV DNA reflex criteria were not met with this specimen result therefore, no HPV testing was performed. . Pathology/Cytolog y PART OF UTERINE CERVIX / Unknown 05/22/2021 11:44 AM CDT 05/25/2021 Narrative [facility] INSURANCE BILL - 05/26/2021 10:10 AM CDT No. of containers..01 ThinPrep Vial Resulting Agency Comment Lab Testing performed at: [address] [id number] Corey Alanis MD LAB - PATHOLOGY/CYTOLOGY ORDERA BLES Final Result [facility] INSURANCE BILL [address] [place] [address] from Last 3 Months or Most Recently Relevant to Health Maintenance Insurance AETNA AETNA Advance Directives Documents on File Type Date Recorded Patient Web Interface Developer Expl anation Adv Directive/Living Will/POA 02/19/2014 9:44 AM COVENTRY ONE * Full Code (Latest Code Status on File) Date Activated Date Inactivated Comments 05/14/2019 5:12 PM 05/17/2019 3:48 PM Care Teams Trimmer Sawyer Relationship Specialty Start Date End Date Martin Hurtado MD PCP - General Family Medicine 01/30/18
--- OUTSIDE RECORDS SUMMARY | 2025-05-22 08:26 | XMS_ITS | Encounter Summary ---
Author Organization [facility] Address [address] [place] [address] Care Team Providers Care Pelota Maker Name Role Phone Dennis Clifton DO Primary Care Provider [phone] Encounter Details Date Type Department Care Team (Late st Contact Info) Description 10/08/2008 Outpatient Historical [facility] [address] [place] [address] Ilda Fenton DO [address], [place] [id number] Social History Tobacco Use Types Packs/Day Years Used Date Smoking Tobacco: Never Assessed Comments Unknown Sex and Gender Information Value Date Recorded Sex Assigned at Not on file Legal Sex Female 5:41 AM PLYWOOD SCARFER TENDER Gender Identity Not on file Sexual Orientation Not on file documented as of this encounter Plan of Treatment Not on file documented as of this encounter Visit Diagnoses Not on filedocumented in this encounter Care Teams Pelota Maker Relationship Specialty Start Date End Date Dennis Clifton DO [facility] [place] [address] PCP - General Family Practice 07/28/21 03/26/24 documented as of this encounter
--- OUTSIDE RECORDS SUMMARY | 2025-05-22 08:26 | XMS_ITS | Encounter Summary ---
Author Organization [facility] Address [address] [place] [address] Care Team Providers Care Hull And Deck Remover Name Role Phone Dennis Clifton DO Primary Care Provider [phone] Encounter Details Date Type Department Care Team (Late st Contact Info) Description 01/24/2009 Outpatient Historical [facility] [address] [place] [address] Ilda Fenton DO [address], [place] [id number] Social History Tobacco Use Types Packs/Day Years Used Date Smoking Tobacco: Never Assessed Comments Unknown Sex and Gender Information Value Date Recorded Sex Assigned at Not on file Legal Sex Female 5:41 AM ELECTRICAL ENGINEERING INTERN Gender Identity Not on file Sexual Orientation Not on file documented as of this encounter Plan of Treatment Not on file documented as of this encounter Visit Diagnoses Not on filedocumented in this encounter Care Teams Hull And Deck Remover Relationship Specialty Start Date End Date Dennis Clifton DO [facility] [place] [address] PCP - General Family Practice 07/28/21 03/26/24 documented as of this encounter
--- OUTSIDE RECORDS SUMMARY | 2025-05-22 08:26 | XMS_ITS | Encounter Summary ---
Author Organization [facility] Address [address] [place] [address] Care Team Providers Care Black Powder Glazing Operator Name Role Phone Dennis Clifton DO Primary Care Provider [phone] Encounter Details Date Type Department Care Team (Late st Contact Info) Description 12/09/2008 Outpatient Historical [facility] [address] [place] [address] Natacha Nelson MD [address] [place] [address] Social History Tobacco Use Types Packs/Day Years Used Date Smoking Tobacco: Never Assessed Comments Unknown Sex and Gender Information Value Date Recorded Sex Assigned at Not on file Legal Sex Female 5:41 AM ARBORIST CLIMBER Gender Identity Not on file Sexual Orientation Not on file documented as of this encounter Plan of Treatment Not on file documented as of this encounter Visit Diagnoses Not on filedocumented in this encounter Care Teams Black Powder Glazing Operator Relationship Specialty Start Date End Date Dennis Clifton DO [address] [place] [address] PCP - General Family Practice 07/28/21 03/26/24 documented as of this encounter
--- OUTSIDE RECORDS SUMMARY | 2025-05-22 08:27 | XMS_ITS | Encounter Summary ---
Author Organization [facility] Address [address] [place] [address] Care Team Providers Care Senior Java Web Developer Name Role Phone Dennis Clifton DO Primary Care Provider [phone] Encounter Details Date Type Department Care Team (Late st Contact Info) Description 04/13/2009 Inpatient Historical [facility] Rufus Arellano MD [address] [place] [address] Social History Tobacco Use Types Packs/Day Years Used Date Smoking Tobacco: Never Assessed Comments Unknown Sex and Gender Information Value Date Recorded Sex Assigned at Not on file Legal Sex Female 5:41 AM HARBORMASTER Gender Identity Not on file Sexual Orientation Not on file documented as of this encounter Plan of Treatment Not on file documented as of this encounter Procedures Procedure Name Priority Date/Time Associated Diagnosis Comments URINALYSIS W/REFLEX MICROSCOPIC Stat 04/13/2009 6:13 PM CDT documented in this encounter Results * (ABNORMAL) URINALYSIS (04/13/2009 6:13 PM CDT) BLOOD UA Negative Negative [facility] COLOR UA Yellow [facility] NITRITE UA Negative Negative [facility] BACTERIA UA 2+(A) None Seen /HPF [facility] UROBILINOGEN UA <1 <=1 mg/dL [facility] PH UA 6.0 5.0 - 8.0 [facility] WBC UA 4 0 - 5 /HPF [facility] KETONES UA Negative Negative [facility] CLARITY UA Clear Clear [facility] BILIRUBIN UA Negative Negative [facility] PROTEIN UA Negative Negative [facility] EPITHELIAL CELLS, URINE 2-5 /HPF [facility] LEUKOCYTE ESTERASE UA Trace(A) Negative [facility] RBC UA 1 0 - 4 /HPF [facility] SPECIFIC GRAVITY UA 1.011 1.001 - 1.035 [facility] GLUCOSE UA Negative Negative [facility] Urine specimen (specimen) 04/13/2009 6:13 PM CDT 04/13/2009 6:17 PM CDT us Rufus Arellano MD URINE ORDERABLES Final Resul t [facility] CLIA# [id number] [address] [place] [address] documented in this encounter Visit Diagnoses Not on filedocumented in this encounter Care Teams Senior Java Web Developer Relationship Specialty Start Date End Date Dennis Clifton DO [address] [facility] [address] PCP - General Family Practice 07/28/21 03/26/24 documented as of this encounter
--- OUTSIDE RECORDS SUMMARY | 2025-05-22 08:27 | XMS_ITS | Encounter Summary ---
Author Organization [facility] Address [address] [place] [address] Care Team Providers Care Traffic Engineer Name Role Phone Dennis Clifton DO Primary Care Provider [phone] Encounter Details Date Type Department Care Team (Late st Contact Info) Description 04/29/2009 [facility] [address] [place] [address] Oneal Cintron MD [id number] [place] [address] Social History Tobacco Use Types Packs/Day Years Used Date Smoking Tobacco: Never Assessed Comments Unknown Sex and Gender Information Value Date Recorded Sex Assigned at Not on file Legal Sex Female 5:41 AM ON AWAKE COUNSELOR Gender Identity Not on file Sexual Orientation Not on file documented as of this encounter Plan of Treatment Not on file documented as of this encounter Visit Diagnoses Not on filedocumented in this encounter Care Teams Traffic Engineer Relationship Specialty Start Date End Date Dennis Clifton DO [address] [place] [phone] PCP - General Family Practice 07/28/21 03/26/24 documented as of this encounter
--- OUTSIDE RECORDS SUMMARY | 2025-05-22 08:27 | XMS_ITS | Clinical Summary ---
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 Not on file [...] history exists Medical Devices Implanted Type Area Business Unit Manager Device Identifier Shelf Expiration Date Model / Serial / Lot Barrier Seprafilm 5x6in [id number] - [id number] Implanted:Qty: 1 on 05/06/2015 by May Doan MD at [facility] Adhesion Barrier N/A: Abdomen [employer] 06/11/2017 [id number] / / [id number] Barrier Seprafilm 5x6in [id number] - [id number] Implanted:Qty: 1 on 12/02/2016 by Abi Guzmán MD at [facility] Adhesion Barrier N/A: Abdomen [employer] 01/09/2019 [id number] / / [id number] Iud Anchors X4 Rt Heel Procedures Procedure Name Priority Date/Time Associated Diagnosis Comments CERV/VAG CYTOPATH, THIN PREP LEASE PURCHASE TRUCK DRIVER AND HPV Routine 05/22/2021 from Last 3 Months or Most Recently Relevant to Health Maintenance Results * CERV/VAG CYTOPATH, THIN PREP LEASE PURCHASE TRUCK DRIVER AND HPV (05/22/2021) Genital SWAB OF ENDOCERVIX / Unknown us Abstract Provider PATHOLOGY/CYTOLOGY ORDERABLES Edited Result - Final [facility]# [id number] [address] [place] [id number] from Last 3 Months or Most Recently Relevant to Health Maintenance Insurance [employer] Commercial MEDICAID [place] Advance Directives For more information, please contact: [phone] * Full Code (Latest Code Status on [...]
--- OUTSIDE RECORDS SUMMARY | 2025-05-22 08:27 | XMS_ITS | Encounter Summary ---
Author Organization [facility] Address [address] [place] [address] Care Team Providers Care Train Planner Name Role Phone Dennis Clifton DO Primary Care Provider [phone] Encounter Details Date Type Department Care Team (Late st Contact Info) Description 11/29/2008 Outpatient Historical [facility] [address] [place] [address] Muna Munguia MD NO ADDRESS ON FILE Social History Tobacco Use Types Packs/Day Years Used Date Smoking Tobacco: Never Assessed Comments Unknown Sex and Gender Information Value Date Recorded Sex Assigned at Not on file Legal Sex Female 5:41 AM VISCOSE CELLAR WORKER Gender Identity Not on file Sexual Orientation Not on file documented as of this encounter Plan of Treatment Not on file documented as of this encounter Visit Diagnoses Not on filedocumented in this encounter Care Teams Train Planner Relationship Specialty Start Date End Date Dennis Clifton DO [facility] [place] [address] PCP - General Family Practice 07/28/21 03/26/24 documented as of this encounter
--- OUTSIDE RECORDS SUMMARY | 2025-05-22 08:27 | XMS_ITS | Encounter Summary ---
Author Organization [employer] Address [address] [place] [address] Care Team Providers Care Fast Food Shift Supervisor Name Role Phone Dennis Clifton DO Primary Care Provider [phone] Encounter Details Date Type Department Care Team (Late st Contact Info) Description 04/15/2009 Outpatient Historical [facility] Oneal Cintron MD [facility] [address] [address] Supervision of Other Normal Social History Tobacco Use Types Packs/Day Years Used Date Smoking Tobacco: Never Assessed Comments Unknown Sex and Gender Information Value Date Recorded Sex Assigned at Not on file Legal Sex Female 5:41 AM SHAREPOINT SOLUTIONS DEVELOPER Gender Identity Not on file Sexual Orientation Not on file documented as of this encounter Plan of Treatment Not on file documented as of this encounter Visit Diagnoses Diagnosis Supervision of other normal documented in this encounter Care Teams Fast Food Shift Supervisor Relationship Specialty Start Date End Date Dennis Clifton DO [address] [place] [address] PCP - General Family Practice 07/28/21 03/26/24 documented as of this encounter
--- OUTSIDE RECORDS SUMMARY | 2025-05-22 08:27 | XMS_ITS | Encounter Summary ---
Author Organization [employer] Address [address] [place] [address] Care Team Providers Care Occupational Therapy Assist Name Role Phone Dennis Clifton DO Primary Care Provider [phone] Encounter Details Date Type Department Care Team (Late st Contact Info) Description 05/06/2009 Outpatient Historical [facility] Oneal Cintron MD [address] [place] [address] State, Incidental Social History Tobacco Use Types Packs/Day Years Used Date Smoking Tobacco: Never Assessed Comments Unknown Sex and Gender Information Value Date Recorded Sex Assigned at Not on file Legal Sex Female 5:41 AM PLUMBER GASFITTER Gender Identity Not on file Sexual Orientation Not on file documented as of this encounter Plan of Treatment Not on file documented as of this encounter Visit Diagnoses Diagnosis state, incidental documented in this encounter Care Teams Occupational Therapy Assist Relationship Specialty Start Date End Date Dennis Clifton DO [address] [place] [phone] PCP - General Family Practice 07/28/21 03/26/24 documented as of this encounter
--- OUTSIDE RECORDS SUMMARY | 2025-05-22 08:27 | XMS_ITS | Encounter Summary ---
Author Organization [employer] Address [address] [place] [address] Care Team Providers Care Data Collection Specialist Name Role Phone Dennis Clifton DO Primary Care Provider [phone] Encounter Details Date Type Department Care Team (Late st Contact Info) Description 04/29/2009 Outpatient Historical [facility] Oneal Cintron MD [facility] [address] [address] Supervision of Other Normal Social History Tobacco Use Types Packs/Day Years Used Date Smoking Tobacco: Never Assessed Comments Unknown Sex and Gender Information Value Date Recorded Sex Assigned at Not on file Legal Sex Female 5:41 AM ANNEALING FURNACE OPERATOR Gender Identity Not on file Sexual Orientation Not on file documented as of this encounter Plan of Treatment Not on file documented as of this encounter Visit Diagnoses Diagnosis Supervision of other normal documented in this encounter Care Teams Data Collection Specialist Relationship Specialty Start Date End Date Dennis Clifton DO [address] [place] [phone] PCP - General Family Practice 07/28/21 03/26/24 documented as of this encounter
--- OUTSIDE RECORDS SUMMARY | 2025-05-22 08:27 | XMS_ITS | Encounter Summary ---
Author Organization [facility] Address [address] [place] [address] Care Team Providers Care Filter Cleaner Name Role Phone Dennis Clifton DO Primary Care Provider [phone] Encounter Details Date Type Department Care Team (Late st Contact Info) Description 04/22/2009 Outpatient [facility] [address] [place] [address] Oneal Cintron MD [id number] [place] [address] Social History Tobacco Use Types Packs/Day Years Used Date Smoking Tobacco: Never Assessed Comments Unknown Sex and Gender Information Value Date Recorded Sex Assigned at Not on file Legal Sex Female 5:41 AM VICE PRESIDENT PHARMACY Gender Identity Not on file Sexual Orientation Not on file documented as of this encounter Plan of Treatment Not on file documented as of this encounter Visit Diagnoses Not on filedocumented in this encounter Care Teams Filter Cleaner Relationship Specialty Start Date End Date Dennis Clifton DO [address] [place] [phone] PCP - General Family Practice 07/28/21 03/26/24 documented as of this encounter
--- OUTSIDE RECORDS SUMMARY | 2025-05-22 08:27 | XMS_ITS | Encounter Summary ---
Author Organization [employer] Address 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 Gender Identity Not on file Sexual Orientation [...] CDT) PLATELETS 268 140 - 350 K/uL [facility] HEMOGLOBIN 11.0(L) 11.8 - 14.8 g/dL [facility] RDW 14.5 11.5 - 14.5 % [facility] WBC 16.2(H) 4.0 - 9.8 K/uL [facility] MCH 27.3 27.2 - 32.6 pg [facility] MPV 9.8 9.3 - 12.4 fL [facility] HEMATOCRIT 33.5(L) 35.5 - 44.0 % [facility] RDW-STDEV 43.8 37.1 - 48.7 fL [facility] RBC 4.03 3.90 - 4.90 M/uL [facility] MCHC 32.8 31.5 - 35.5 % [facility] MCV 83.1 82.0 - 99.0 fL [facility] EOSINOPHILS 0 0 - 7 % [facility] EOSINOPHIL ABSOLUTE 0.01 0.00 - 0.70 K/uL [facility] LYMPHOCYTES 11(L) 16 - 45 % [facility] LYMPHOCYTE ABSOLUTE 1.72 0.70 - 4.50 K/uL [facility] BASOPHILS 0 0 - 2 % [facility] BASOPHILS ABSOLUTE 0.01 0.00 - 0.20 K/uL [facility] MONOCYTES 7 3 - 13 % [facility] MONOCYTE ABSOLUTE 1.19 0.10 - 1.30 K/uL [facility] NEUTROPHILS 82(H) 45 - 70 % [facility] NEUTROPHIL ABSOLUTE 13.31(H) 1.90 - 7.00 K/uL [facility] Blood specimen (specimen) 05/10/2009 4:12 PM CDT 05/10/2009 4:17 PM CDT us Oneal Cintron MD HEMATOLOGY ORDERABLES Edited [facility] CLIA# [id number] [address] [place] [address] * TYPE AND SCREEN (05/10/2009 4:06 PM CDT) HISTORY CHECK History Checked [facility] ABO/RH TYPE A Positive [facility] SPECIMEN LIFE 3 days from drawdate [facility] ANTIBODY SCREEN Negative [facility] Blood specimen (specimen) 05/10/2009 4:06 PM CDT us Oneal Cintron MD BLOOD BANK ORDERABLES Edited INTERFACE SYSTEM Refer to clinic/hospital department [facility] CLIA# [id number] [address] [place] [address] documented in this encounter Visit Diagnoses Not on filedocumented in this encounter Care Teams Videographer Relationship Specialty Start Date End Date Dennis Clifton DO [facility] [address] [phone] PCP - General Family Practice 07/28/21 03/26/24 documented as of this encounter
--- OUTSIDE RECORDS SUMMARY | 2025-05-22 08:27 | XMS_ITS | Encounter Summary ---
Author Organization [employer] Address 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
--- OUTSIDE RECORDS SUMMARY | 2025-05-22 08:27 | XMS_ITS | Encounter Summary ---
Author Organization [facility] Address [address] [place] [address] Care Team Providers Care Synthetic Plasterer Name Role Phone Dennis Clifton DO Primary Care Provider [phone] Encounter Details Date Type Department Care Team (Late st Contact Info) Description 05/06/2009 [facility] [address] [place] [address] Oneal Cintron MD [id number] [place] [address] Social History Tobacco Use Types Packs/Day Years Used Date Smoking Tobacco: Never Assessed Comments Unknown Sex and Gender Information Value Date Recorded Sex Assigned at Not on file Legal Sex Female 5:41 AM MASS SPEC Gender Identity Not on file Sexual Orientation Not on file documented as of this encounter Plan of Treatment Not on file documented as of this encounter Visit Diagnoses Not on filedocumented in this encounter Care Teams Synthetic Plasterer Relationship Specialty Start Date End Date Dennis Clifton DO [address] [place] [phone] PCP - General Family Practice 07/28/21 03/26/24 documented as of this encounter
--- OUTSIDE RECORDS SUMMARY | 2025-05-22 08:27 | XMS_ITS | Encounter Summary ---
Author Organization [employer] Address 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
--- OUTSIDE RECORDS SUMMARY | 2025-05-22 08:27 | XMS_ITS | Encounter Summary ---
Author Organization [employer] Address 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
--- OUTSIDE RECORDS SUMMARY | 2025-05-22 08:27 | XMS_ITS | Encounter Summary ---
Author Organization [employer] Address 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
--- OUTSIDE RECORDS SUMMARY | 2025-05-22 08:27 | XMS_ITS | Encounter Summary ---
Author Organization [facility] Address 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
--- OUTSIDE RECORDS SUMMARY | 2025-05-22 08:27 | XMS_ITS | Encounter Summary ---
Author Organization [facility] Address [address] [place] [address] Care Team Providers Care Car Wash Supervisor Name Role Phone Dennis Clifton DO Primary Care Provider [phone] Encounter Details Date Type Department Care Team (Late st Contact Info) Description 11/19/2008 [facility] [address] [place] [address] Oneal Cintron MD [id number] [place] [address] Social History Tobacco Use Types Packs/Day Years Used Date Smoking Tobacco: Never Assessed Comments Unknown Sex and Gender Information Value Date Recorded Sex Assigned at Not on file Legal 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
--- NOTE | 2025-05-22 08:28 | ED_ITS ---
HPI - General Adult General Chief complaint: Abdominal Pain Stated complaint: ABDOMINAL PAIN-HX PANCREATITIS Time Seen by Provider: 05/22/25 07:54 History of Present Illness HPI narrative: 34-year-old female presents to the emergency department for evaluation for epigastric and right upper quadrant abdominal pain. Patient reports does have a prior history of pancreatitis. 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 Patient began having right upper quadrant pain Tuesday. Patient states she typically follows up at [facility] but she was unhappy with her care there so she presented to [facility] for evaluation. Patient declined medications for pain control. Denies any prior history cholecystectomy patient was told that her prior etiology for pancreatitis was alcohol and caffeine, patient states she decreased her alcohol significantly has had no recent alcohol and patient stopped caffeine. Related Data Allergies Allergy/AdvReac Type Severity Reaction Status Date / Time amoxicillin Allergy Hives Verified 05/22/25 07:56 azithromycin Allergy Hives Verified 05/22/25 07:56 Review of Systems 2 Review of Systems: All systems reviewed & are unremarkable except as noted in HPI and below PMFSH Past Medical History Medical History (Updated 05/22/25 @ 09:25 by Terry Romero MD) No active medical problems Social History Social History (Updated 03/01/24 @ 11:19 by Becka Ayala PA-C) Substance use: never Exam 2 Narrative: APPEARANCE: Well appearing, no pain, no distress, well-nourished. HEAD: normocephalic, atraumatic. EYES: PERRLA/EOMI, conjunctivae clear. NOSE: Normal no drainage EARS:TMS clear with good light reflex. THROAT: Pharynx clear, no exudate. NECK: Supple. No adenopathy, no masses. RESPIRATORY: Airway patent, respirations nonlabored. Clear to auscultation bilaterally, no rales, rhonchi, wheezing. CARDIOVASCULAR: Regular rate and rhythm without murmurs rubs or gallops. ABDOMINAL: Right upper quadrant tenderness to palpation MUSCULOSKELETAL: Moves all extremities. Strength/ROM intact, No edema, No calf tenderness. NEURO: Alert. Cranial nerves II through XII intact. Good gait. Good coordination SKIN: Warm, dry. Normal Color Course Vital Signs Vital signs: Vital Signs Temperature 98.2 F 05/22/25 07:50 Pulse Rate 107 H 05/22/25 07:50 Respiratory Rate 16 05/22/25 07:50 Blood Pressure 132/96 H 05/22/25 07:50 Pulse Oximetry 100 05/22/25 07:50 Oxygen Delivery Room Air 05/22/25 07:50 Temperature 98.2 F 05/22/25 07:50 Pulse Rate 96 05/22/25 09:39 Respiratory Rate 16 05/22/25 09:39 Blood Pressure 137/93 H 05/22/25 09:39 Pulse Oximetry 100 05/22/25 09:39 Oxygen Delivery Room Air 05/22/25 07:50 Medical Decision Making MDM Narrative Medical decision making narrative: 34-year-old female presented emergency department for evaluation for upper abdominal pain. Patient is currently afebrile with no leukocytosis hemoglobin of 15.8. INR is 1.1. Patient has no acute abnormalities on her CMP lactic acid is not elevated lipase is 108. Patient has urine that is positive for ketones positive for nitrates high white blood cells and +2 bacteria. Patient's urine test was negative. CT abdomen pelvis shows no acute abnormalities. Patient will be started on Bactrim for suspected urinary tract infection. Patient was also started on Pyridium for urinary symptoms. All questions concerns were addressed patient was encouraged of close follow-up with her primary care physician. Patient's recent urinary tract infection was treated Pina and I do not have access to her recent cultures. Differential Diagnosis Differential Diagnosis: hepatitis, cholecystitis, pancreatitis, gastritis, duodenitis, esophagitis, colitis, UTI Vital Signs Vital Signs: Vital Signs Temperature 98.2 F 05/22/25 07:50 Pulse Rate 107 H 05/22/25 07:50 Respiratory Rate 16 05/22/25 07:50 Blood Pressure 132/96 H 05/22/25 07:50 Pulse Oximetry 100 05/22/25 07:50 Oxygen Delivery Room Air 05/22/25 07:50 Temperature 98.2 F 05/22/25 07:50 Pulse Rate 96 05/22/25 09:39 Respiratory Rate 16 05/22/25 09:39 Blood Pressure 137/93 H 05/22/25 09:39 Pulse Oximetry 100 05/22/25 09:39 Oxygen Delivery Room Air 05/22/25 07:50 Lab Data Lab results reviewed: Yes I reviewed the patient's lab results. 05/22/25 08:02 05/22/25 08:02 Labs: Lab Results 05/22/25 05/22/25 Range/Units 08:02 08:31 WBC 5.2 (4.5-10.0) K/mm3 RBC 4.53 (4.2-5.4) M/mm3 Hgb 15.8 H (12.0-15.0) g/dL Hct 47.4 H (37.0-47.0) % MCV 104.6 H (80-100) fl MCH 34.9 H (26-34) pg MCHC 33.3 (32-36) g/dl RDW 15.5 H (11.5-14.5) % Plt Count 132 L (150-375) k/mm3 MPV 9.4 (7.4-10.4) fl Immature Gran % (Auto) 0.2 (0-0.5) % Neut % (Auto) 67.3 (45.5-73.1) % Lymph % (Auto) 17.7 L (18.3-44.2) % Wheeler % (Auto) 11.3 H (2.6-8.5) % Eos % (Auto) 2.9 (0-4.4) % Baso % (Auto) 0.6 (0.2-1.2) % Lymph # (Auto) 0.92 (0.9-3.2) K/mm3 Wheeler # (Auto) 0.6 (0.1-0.6) K/mm3 Eos # (Auto) 0.2 (0-0.3) K/mm3 Baso # (Auto) 0.0 (0.0-0.1) K/mm3 Abs Immat Gran (auto) 0.01 (0.00-0.031) K/mm3 Absolute Neuts (auto) 3.5 (1.3-6.7) K/mm3 Absolute Nucleated RBC 0.000 (0.0-0.012) K/mm3 Nucleated RBC % 0.0 (0.0-0.2) % PT 14.2 (11.1-14.7) Seconds INR 1.1 APTT 26.0 (22.3-36.8) Seconds Sodium 138 (137-145) mmol/L Potassium 3.8 (3.4-5.0) mmol/L Chloride 101 (98-107) mmol/L Carbon Dioxide 26 (22-30) mmol/L Anion Gap 11 (4-12) mmol/L BUN 8 (7-17) mg/dL Creatinine 0.74 (0.7-1.0) mg/dL Estim Creat Clear Calc 92 ml/min Estimated GFR > 60 (59 - ) Glucose 102 (65-110) mg/dL Lactic Acid 1.2 (0.7-2.0) mmol/L Calcium 8.9 (8.4-10.2) mg/dL Total Bilirubin 5.3 H (0.2-1.3) mg/dL AST 303 H (14-36) U/L ALT 160 H (6-35) U/L Alkaline Phosphatase 164 H (38-126) U/L Total Protein 8.0 (6.3-8.2) g/dL Albumin 4.4 (3.5-5.1) g/dL Lipase 108 (23-300) U/L Urine Color Azul (Yellow) Urine Appearance Cloudy H (Clear) Urine pH 5.0 (5.0-9.0) Ur Specific [place] 1.028 (1.001-1.035) Urine Protein 1+ H (Negative) mg/dL Urine Glucose (UA) Negative (Negative) mg/dL Urine Ketones 2+ H (Negative) mg/dL Ur Blood (Man) Negative (Negative) Urine Nitrate Positive H (Negative) Urine Bilirubin 3+ H (Negative) Urine Urobilinogen 1.0 (<2.0) mg/dL Leukocyte Esterase Rfl 2+ H (Negative) ASHWIN/UL Urine RBC 3-5 H (0-2) /hpf Urine WBC 11-20 H (0-3) /hpf Ur Squamous Epith Cells Many H (Few) /hpf Urine Bacteria 2+ H /hpf Urine Casts 0-2 POC Urine HCG, Qual Negative (Negative) Imaging Data Radiologist's impression: Impressions Abdomen/Pelvis CT 05/22/25 08:49 IMPRESSION: 1. No acute intra-abdominal/pelvic process. 2. Diffuse hepatic steatosis. 3. Small sliding-type hiatal hernia. Discharge Plan Discharge Clinical Impression: UTI (urinary tract infection) Patient Disposition: Home Condition: Stable Instructions: Antibiotic Form, Urinary Tract Infection in Women (DC), Abdominal Pain (ED) Additional Instructions: Tylenol and ibuprofen for pain control. Antibiotic as directed until completed. Pyridium as directed for urinary symptoms. Have close follow-up with your primary care physician. Patient Language: Filipino Prescriptions: New sulfamethoxazole-trimethoprim [Bactrim DS] 800-160 mg tablet 1 tablet PO Q12H 7 Days Qty: 14 0RF phenazopyridine [Pyridium] 100 mg tablet 100 mg PO TID PRN (Reason: pain) Qty: 6 0RF No Action clindamycin HCl 300 mg capsule 300 mg PO Q8H 10 Days Qty: 30 0RF Follow-up/Referrals: PHYSICIAN NOT ON STAFF,NONSTAFF [Primary Care Provider]
[2025-05-22 08:31] VITALS: BP 134/87; PULSE 68; RESP 18; O2SAT 99
[2025-05-22 08:33] LABS: BEDSIDEPREGUCG Negative (Negative)
[2025-05-22 08:34] LABS: INR 1.1; Partial Thromboplastin Time 26.0 Seconds (22.3-36.8); Prothrombin Time 14.2 Seconds (11.1-14.7)
[2025-05-22] MEDS: SULFAMETHOXAZOLE/TRIMETHOPRIM 800/160 MG DS TABLET 1 TAB PO (09:33)
[2025-05-22 09:39] VITALS: BP 137/93; PULSE 96; RESP 16; O2SAT 100
== END 2025-05-22 09:40 | disposition home or self-care (01) ==
PROVIDERS: Emergency Provider Emergency Medicine
DX: N39.0 Urinary tract infection, site not specified (principal)
CPT/HCPCS: 36415; 74177; 80053; 81001; 81025; 83605; 83690; 85025; 85610; 85730; 96361; 96374; 96375; 99284; A9270; J1200; J2765; J7120; Q9967